=== PATIENT | female | born 1930 | race Caucasian/White ===

== ENCOUNTER 2016-05-28 16:57 | Inpatient (IN) | payer MEDICARE, OTHER ==
[2016-05-28] MEDS ORDERED: IPRATROPIUM/ALBUTEROL 0.5-2.5 MG/3 ML AMPUL NEB ONE ×2 (17:04→19:04)
--- NOTE | 2016-05-28 17:09 | ER Document Report ---
ED Respiratory Problem - General Mode of Arrival: Medic Information source: Relative, Emergency Med Personnel TRAVEL OUTSIDE OF THE [place] IN LAST 30 DAYS: No - HPI Patient complains to provider of: Other - Respiratory Distress Onset: Just prior to arrival Context: Other - see above <JOHN SHAW - Last Filed: 05/28/16 19:15> <BERNARDINOBARRETT GUERO - Last Filed: 06/09/16 23:03> - General Stated Complaint: RESPIRATORY DISTRESS Notes: 86 year old female with history of bronchiectasis, chronic bronchitis, and pneumonia (last episode in February 2016) presents to the ED from [facility] via EMS in respiratory distress. [facility] [employer] states that the patient was at 80% on room air. Patient was given breathing treatment and oxygen which raised her oxygen saturation to 100%. Patient's daughter states that she saw the patient earlier today for lunch and had a normal conversation with her. Daughter states that the patient seemed unwell and tired while having lunch with her. Daughter explains that the patient fell on Thanksgiving and injured her back and is having difficulty coughing secondary to this. Daughter denies the patient choking on her food today. (JOHN SHAW) - Related Data Allergies/Adverse Reactions: aspirin Allergy (Verified 03/03/16 12:15) ibuprofen [From Motrin] Allergy (Verified 03/03/16 12:15) naproxen Allergy (Verified 03/03/16 12:15) Home Medications: Current Home Medications Atorvastatin Calcium [Lipitor 10 mg Tablet] 10 mg PO QHS 05/28/16 [History] Past Medical History - General Information source: Relative, Emergency Med Personnel - Social History Smoking Status: Unknown if Ever Smoked Family History: Hypertension - Past Medical History Cardiac Medical History: Reports: Hx Hypercholesterolemia, Hx Hypertension Pulmonary Medical History: Reports: Hx Bronchitis - bronchiectasis, Hx COPD, Hx Pneumonia Musculoskeltal Medical History: Reports Hx Arthritis - rheumatoid Psychiatric Medical History: Reports: Hx Depression Past Surgical History: Reports: Hx Cholecystectomy, Hx Hysterectomy, Hx Orthopedic Surgery - bilat knee replacement, rotator cuff sx, lamenectomy - Immunizations Immunizations up to date: Yes Hx Diphtheria, Pertussis, Tetanus Vaccination: Yes Hx Pneumococcal Vaccination: 05/30/10 <JOHN SHAW - Last Filed: 05/28/16 19:15> Review of Systems - Review of Systems -: Yes ROS unobtainable due to patient's medical condition <JOHN SHAW - Last Filed: 05/28/16 19:15> Physical Exam - Vital signs Interpretation: Hypoxic, Tachypneic - General General appearance: Alert, Other - minimally responsive In distress: Severe - HEENT Head: Normocephalic, Atraumatic Eyes: Normal Extraocular movements intact: Yes Pupils: PERRL - Respiratory Respiratory status: Respiratory distress, Tachypnea, Other Breath sounds: Decreased air movement - bilaterally, Rhonchi - bilaterally, Other - decreased breath sounds bilaterally - Cardiovascular Rhythm: Regular Heart sounds: Normal auscultation - Abdominal Inspection: Normal - Back Back: Normal - Extremities General upper extremity: Normal inspection, Normal ROM General lower extremity: Normal inspection, Normal ROM - Neurological Neuro grossly intact: Yes Cognition: Normal Orientation: AAOx4 [place] Coma Scale Eye Opening: Spontaneous [place] Coma Scale Verbal: Oriented Rigoberto Coma Scale Motor: Obeys Commands [place] Coma Scale Total: 15 Speech: Normal - Psychological Associated symptoms: Normal affect, Normal mood - Skin Skin Temperature: Warm Skin Moisture: Dry Skin Color: Pale <JOHN SHAW - Last Filed: 05/28/16 19:15> - Neurological Cognition: No: Normal Orientation: No: AAOx4 Rigoberto Coma Scale Eye Opening: To Voice [place] Coma Scale Verbal: Inappropriate Rigoberto Coma Scale Motor: Localizes to Pain [place] Coma Scale Total: 11 <BARRETT LEBRON - Last Filed: 06/09/16 23:03> - Vital signs Vitals: Resp Pulse Ox 23 H 100 05/28/16 17:02 05/28/16 17:02 (BARRETT LEBRON) Course - Laboratory Result Diagrams: 05/28/16 17:10 05/28/16 17:10 <JOHN SHAW - Last Filed: 05/28/16 19:15> - Laboratory Result Diagrams: 06/02/16 08:18 06/03/16 09:03 <BARRETT LEBRON - Last Filed: 06/09/16 23:03> - Re-evaluation Re-evalutation: 05/28/16 Patient is an 86-year-old female who presents with respiratory distress. Patient is DNR/DNI. Patient's chest x-ray, exam consistent with pneumonia. Patient recently MRSA pneumonia. Patient has been discussed with family who reiterates that she is DNR/DNI. Patient has been placed on BiPAP and started on antibiotics. Blood cultures have been sent. Patient is retired referred to the hospital service for admission. Patient is in stable condition at the time of admission. (BARRETT LEBRON) - Vital Signs Vital signs: Temp Pulse Resp BP Pulse Ox 97.7 F 81 18 156/80 H 100 06/03/16 11:23 06/03/16 11:23 06/03/16 11:23 06/03/16 11:23 06/03/16 11:23 (BARRETT LEBRON) - Laboratory Laboratory results interpreted by me: 05/28/16 05/28/16 05/28/16 17:10 17:10 17:10 WBC 12.0 H RBC 3.60 L Hgb 9.0 L Hct 28.8 L MCH 24.8 L MCHC 31.1 L RDW 19.6 H Absolute Neutrophils 9.3 H PT 15.5 H VBG pH VBG pCO2 Sodium 136.4 L BUN 27 H Glucose 164 H Albumin 3.2 L 05/28/16 17:10 WBC RBC Hgb Hct MCH MCHC RDW Absolute Neutrophils PT VBG pH 7.29 L VBG pCO2 66.4 H* Sodium BUN Glucose Albumin (BARRETT LEBRON) Discharge <SHAW,JOHN - Last Filed: 05/28/16 19:15> - Discharge Admitting Provider: [facility] Unit Admitted: IMCU <BARRETT LEBRON - Last Filed: 06/09/16 23:03> - Discharge Clinical Impression: Respiratory distress, COPD exacerbation Altered mental status Qualifiers: Altered mental status type: unspecified Qualified Code(s): R41.82 - Altered mental status, unspecified Pneumonia Qualifiers: Pneumonia type: due to unspecified organism Laterality: bilateral Lung location : lower lobe of lung Qualified Code(s): J18.9 - Pneumonia, unspecified organism Condition: Stable Disposition: ADMITTED INPATIENT Scribe Attestation: 06/09/16 23:03 I personally performed the services described in the documentation, reviewed and edited the documentation which was dictated to the scribe in my presence, and it accurately records my words and actions. (BARRETT LEBRON) Scribe Documentation - Scribe acting as scribe for :: Bernardino Written by Estee:: Estee Mendoza, 05/28/2016 18:21 <JOHN SHAW - Last Filed: 05/28/16 19:15>
[2016-05-28 17:30] LABS: ABSOLUTE BASOPHILS # (AUTO) 0.1 10^3/uL (0.0-0.2); ABSOLUTE LYMPHOCYTES (AUTO) 1.7 10^3/uL (0.5-4.7); ABSOLUTE MONOCYTES (AUTO) 0.9 10^3/uL (0.1-1.4); ABSOLUTE NEUT (AUTO) 9.3 10^3/uL (1.7-8.2); BASOPHILS % (AUTO) 0.5 % (0-2); HEMATOCRIT 28.8 % (36.0-47.0); HGB HCT DIFFERENCE -1.8; LYMPHOCYTES % (AUTO) 14.2 % (13-45); MEAN CORPUSCULAR HEMOGLOBIN 24.8 pg (27.0-33.4); MEAN CORPUSCULAR HGB CONC 31.1 g/dL (32.0-36.0); MEAN CORPUSCULAR VOLUME 80 fl (80-97); MONOCYTES % (AUTO) 7.5 % (3-13); RED CELL DISTRIBUTION WIDTH 19.6 % (11.5-14.0); SEGMENTED NEUTROPHILS % (AUTO) 77.8 % (42-78); VENOUS BLOOD PH 7.29 (7.30-7.42)
[2016-05-28 17:33] LABS: VENOUS BLOOD PCO2 66.4 mmHg (35-63)
[2016-05-28 17:45] LABS: PROTHROMBIN TIME 15.5 SEC (11.4-15.4)
[2016-05-28] MEDS ORDERED: CEFEPIME 1 GM/D5W RTU 50 ML IV ONE (17:46)
[2016-05-28] MEDS ORDERED: LEVOFLOXACIN 750 MG/D5W RTU 150 ML IV ONE (17:46)
[2016-05-28] MEDS ORDERED: NORMAL SALINE 1000 ML 500 ML IV ONE (17:46)
[2016-05-28] MEDS ORDERED: VANCOMYCIN HCL INJ 1000 MG VIAL IV ONE (17:46)
[2016-05-28 17:51] LABS: ALANINE AMINOTRANSFERASE 29 U/L (9-52); ALBUMIN 3.2 g/dL (3.5-5.0); ALKALINE PHOSPHATASE 95 U/L (38-126); ANION GAP 10 (5-19); ASPARTATE AMINO TRANSFERASE 17 U/L (14-36); BILIRUBIN,TOTAL 0.7 mg/dL (0.2-1.3); BLOOD UREA NITROGEN 27 mg/dL (7-20); CALCIUM 9.8 mg/dL (8.4-10.2); CARBON DIOXIDE 28 mmol/L (22-30); CHLORIDE 98 mmol/L (98-107); CREATININE RESULT 0.88 mg/dL (0.52-1.25); GLUCOSE 164 mg/dL (75-110); POTASSIUM 4.8 mmol/L (3.6-5.0); SODIUM 136.4 mmol/L (137-145); TOTAL PROTEIN 6.4 g/dL (6.3-8.2)
--- NOTE | 2016-05-28 18:58 | PDOC H&P ---
History of Present Illness Patient complains of: SOB History of Present Illness: GRACIELA WHITFIELD is a 86 year old female with history of bronchiectasis, chronic bronchitis, and pneumonia (last episode in February 2016) presents to the ED from [facility] via EMS in respiratory distress. [facility] states that the patient was at 80% on room air. Patient was given breathing treatment and oxygen which raised her oxygen saturation to 100%. Patient's daughter states that she saw the patient earlier today for lunch and had a normal conversation with her. Daughter states that the patient seemed unwell and tired while having lunch with her. Daughter explains that the patient fell on Thanksgiving and injured her back and is having difficulty coughing secondary to this. Daughter denies the patient choking on her food today. Past Medical History Cardiac Medical History: Reports: Hyperlipidema, Hypertension Denies: Myocardial Infarction Pulmonary Medical History: Reports: Bronchitis - bronchiectasis, Chronic Obstructive Pulmonary Disease (COPD), Pneumonia Denies: Asthma Neurological Medical History: Denies: Seizures GI Medical History: Denies: Hepatitis, Hiatal Hernia Musculoskeltal Medical History: Reports: Arthritis - rheumatoid Psychiatric Medical History: Reports: Depression Hematology: Denies: Anemia, Sickle Cell Disease Past Surgical History Past Surgical History: Reports: Cholecystectomy, Hysterectomy, Orthopedic Surgery - bilat knee replacement, rotator cuff sx, lamenectomy Denies: Amputation, Mastectomy, Pacemaker Social History Information Source: Transfer Record Smoking Status: Unknown if Ever Smoked Frequency of Alcohol Use: None Hx Recreational Drug Use: No Drugs: None Hx Prescription Drug Abuse: No Family History Family History: Hypertension Parental Family History Reviewed: Yes - hypertension Children Family History Reviewed: Yes Sibling(s) Family History Reviewed.: Yes Medication/Allergy Home Medications: Calcium Carbonate/Vitamin D3 [Super Calcium 600-Vit D3 400] 1 each PO DAILY Cetirizine HCl [Zyrtec] 10 mg PO DAILY 01/28/16 Cholecalciferol (Vitamin D3) [Vitamin D3] 2,000 unit PO DAILY 01/28/16 Cyanocobalamin (Vitamin B-12) [Vitamin B-12] 1,000 mcg PO DAILY 01/28/16 Docusate Sodium [Colace 100 mg Capsule] 100 mg PO BID 01/28/16 Duloxetine HCl [Cymbalta] 60 mg PO DAILY 01/28/16 Furosemide [Lasix 20 mg Tablet] 20 mg PO DAILY 01/28/16 Ipratropium/Albuterol Sulfate [Duoneb 3 ml Ampul] 3 ml NEB TID 01/28/16 Lorazepam [Ativan 0.5 mg Tablet] 0.5 mg PO Q8H PRN 01/28/16 Mirtazapine [Remeron] 30 mg PO QHS 01/28/16 Omeprazole 20 mg PO DAILY 01/28/16 Potassium Chloride [K-Tab ER] 10 meq PO DAILY 01/28/16 Prednisone 5 mg PO DAILY 01/28/16 Risperidone [Risperdal 0.25 mg Tablet] 0.25 mg PO QAM 01/28/16 Apixaban [Eliquis 5 mg Tablet] 2.5 mg PO BID #60 tablet 03/10/16 Linezolid [Zyvox 600 mg Tablet] 600 mg PO Q12 #30 tablet 03/10/16 Risperidone [Risperdal 1 mg Tablet] 0.5 mg PO QHS #30 tablet 03/10/16 Simvastatin [Zocor 10 mg Tablet] 10 mg PO QHS #30 tablet 03/10/16 Allergies/Adverse Reactions: aspirin Allergy (Verified 03/03/16 12:15) ibuprofen [From Motrin] Allergy (Verified 03/03/16 12:15) naproxen Allergy (Verified 03/03/16 12:15) Review of Systems ROS unobtainable: Due to mental status - on bipap support, Other Physical Exam Vital Signs: Temp Pulse Resp BP Pulse Ox 21 H 140/119 H 100 05/28/16 18:04 05/28/16 18:04 05/28/16 18:04 Intake & Output 05/27/16 05/28/16 05/29/16 00:59 00:59 00:59 Weight 47.7 kg General appearance: PRESENT: mild distress, thin Head exam: PRESENT: atraumatic, normocephalic Eye exam: PRESENT: conjunctiva pink, EOMI, PERRLA. ABSENT: scleral icterus Neck exam: ABSENT: carotid bruit, JVD, lymphadenopathy, thyromegaly Respiratory exam: PRESENT: accessory muscle use, retraction, rhonchi, wheezes Cardiovascular exam: PRESENT: RRR. ABSENT: diastolic murmur, rubs, systolic murmur Vascular exam: PRESENT: normal capillary refill GI/Abdominal exam: PRESENT: normal bowel sounds, soft. ABSENT: distended, guarding, mass, organolmegaly, rebound, tenderness Rectal exam: PRESENT: deferred Extremities exam: PRESENT: full ROM. ABSENT: calf tenderness, clubbing, pedal edema Results Laboratory Results: 05/28/16 17:10 05/28/16 17:10 05/28/16 05/28/16 05/28/16 17:10 17:10 17:10 WBC 12.0 H RBC 3.60 L Hgb 9.0 L Hct 28.8 L MCV 80 MCH 24.8 L MCHC 31.1 L RDW 19.6 H Plt Count 414 Seg Neutrophils % 77.8 Lymphocytes % 14.2 Monocytes % 7.5 Eosinophils % 0.0 Basophils % 0.5 Absolute Neutrophils 9.3 H Absolute Lymphocytes 1.7 Absolute Monocytes 0.9 Absolute Eosinophils 0.0 Absolute Basophils 0.1 VBG pH VBG pCO2 VBG HCO3 VBG Base Excess Sodium 136.4 L Potassium 4.8 Chloride 98 Carbon Dioxide 28 Anion Gap 10 BUN 27 H Creatinine 0.88 Est GFR ( Amer) > 60 Est GFR (Non-Af Amer) > 60 Glucose 164 H Lactic Acid 1.8 Calcium 9.8 Total Bilirubin 0.7 AST 17 ALT 29 Alkaline Phosphatase 95 Total Protein 6.4 Albumin 3.2 L 05/28/16 17:10 WBC RBC Hgb Hct MCV MCH MCHC RDW Plt Count Seg Neutrophils % Lymphocytes % Monocytes % Eosinophils % Basophils % Absolute Neutrophils Absolute Lymphocytes Absolute Monocytes Absolute Eosinophils Absolute Basophils VBG pH 7.29 L VBG pCO2 66.4 H* VBG HCO3 31.0 VBG Base Excess 2.0 Sodium Potassium Chloride Carbon Dioxide Anion Gap BUN Creatinine Est GFR ( Amer) Est GFR (Non-Af Amer) Glucose Lactic Acid Calcium Total Bilirubin AST ALT Alkaline Phosphatase Total Protein Albumin 05/28/16 17:10 Creatine Kinase 50 Impressions: Chest X-Ray 05/28/16 17:06 IMPRESSION: LOW LUNG VOLUMES. Bilateral Basilar subsegmental atelectasis.. Assessment & Plan - Diagnosis (1) Dementia Qualifiers: Dementia type: unspecified type Dementia behavioral disturbance: with behavioral disturbance Qualified Code(s): F03.91 - Unspecified dementia with behavioral disturbance; F10.97 - Alcohol use, unspecified with alcohol- induced persisting dementia (2) Acute encephalopathy Is this a current diagnosis for this admission?: YesPlan: secondary to hypercarbia continue bipap support (3) COPD exacerbation Is this a current diagnosis for this admission?: YesPlan: steroids nebs antibiotics (4) DNR (do not resuscitate) Is this a current diagnosis for this admission?: Yes (5) History of pulmonary embolism Is this a current diagnosis for this admission?: YesPlan: was anticoagulated on eliquis will switch to lovenox SC isf NPO (6) Pneumonia Qualifiers: Pneumonia type: due to unspecified organism Laterality: left Lung location: lower lobe of lung Qualified Code(s): J18.9 - Pneumonia, unspecified organism Is this a current diagnosis for this admission?: YesPlan: treat as hospital acquired pneumonia - Time Time Spent: 50 to 70 Minutes - Inpatient Certification Based on my medical assessment, after consideration of the patient's comorbidities, presenting symptoms, or acuity I expect that the services needed warrant INPATIENT care.: Yes I certify that my determination is in accordance with my understanding of Medicare's requirements for reasonable and necessary INPATIENT services [42 CFR 412.3e].: Yes Medical Necessity: Need For IV Fluids, Need For Continuous Telemetry Monitoring , Need for IV Antibiotics
[2016-05-28 19:00] LABS: CREATINE KINASE MB 1.34 ng/mL (<4.55); TROPONIN I 0.022 ng/mL
[2016-05-28] MEDS ORDERED: VANCOMYCIN HCL 0 MG in DEXTROSE 5%-WATER 250 ML IV NR (19:00)
[2016-05-28] MEDS ORDERED: METHYLPREDNISOLONE INJ 125 MG/2 ML SDV IV ONE (19:30)
[2016-05-28 19:42] LABS: APPEARANCE,URINE CLEAR; BILIRUBIN,URINE NEGATIVE (NEGATIVE); GLUCOSE, URINE NEGATIVE (NEGATIVE); KETONES,URINE NEGATIVE (NEGATIVE); LEUKOCYTE ESTERASE,URINE NEGATIVE (NEGATIVE); NITRITE,URINE NEGATIVE (NEGATIVE); PROTEIN,URINE NEGATIVE (NEGATIVE); URINE SPECIFIC GRAVITY 1.012; UROBILINOGEN,URINE NEGATIVE mg/dL (<2.0)
[2016-05-28] MEDS ORDERED: ENOXAPARIN SODIUM INJ 30 MG/0.3 ML DISP.SYRIN SUBCUT ONE (20:30)
[2016-05-28] MEDS: NORMAL SALINE 1000 ML 1,000 ML IV PRN (20:48)
[2016-05-28] MEDS ORDERED: VANCOMYCIN HCL 500 MG in DEXTROSE 5%-WATER 100 ML IV ONE (21:00)
--- NOTE | 2016-05-28 21:05 | EKG REPORT ---
SEVERITY:- ABNORMAL ECG - SINUS TACHYCARDIA OLD ANTRIOR [place] : Confirmed by: Christ Mendoza MD 28-May-2016 21:04:27
[2016-05-28] MEDS: METHYLPREDNISOLONE INJ 125 MG/2 ML SDV IV SCH ×2 (21:58→22:10)
[2016-05-28] MEDS: FAMOTIDINE INJ/PF 20 MG/2 ML SDV IV SCH (22:10)
[2016-05-29] MEDS: CEFEPIME 1 GM/D5W RTU 1 GM/50 ML RTUPB IV SCH ×2 (05:09→17:08)
[2016-05-29] MEDS: METHYLPREDNISOLONE INJ 125 MG/2 ML SDV IV SCH ×3 (05:09→21:26)
[2016-05-29 06:15] LABS: ABSOLUTE LYMPHOCYTES (AUTO) 0.4 10^3/uL (0.5-4.7); ABSOLUTE MONOCYTES (AUTO) 0.2 10^3/uL (0.1-1.4); ABSOLUTE NEUT (AUTO) 6.9 10^3/uL (1.7-8.2); BASOPHILS % (AUTO) 0.1 % (0-2); HEMATOCRIT 25.5 % (36.0-47.0); HEMOGLOBIN 8.3 g/dL (12.0-15.5); HGB HCT DIFFERENCE -0.6; LYMPHOCYTES % (AUTO) 5.8 % (13-45); MEAN CORPUSCULAR HEMOGLOBIN 25.8 pg (27.0-33.4); MEAN CORPUSCULAR HGB CONC 32.3 g/dL (32.0-36.0); MEAN CORPUSCULAR VOLUME 80 fl (80-97); MONOCYTES % (AUTO) 2.9 % (3-13); RED CELL DISTRIBUTION WIDTH 19.6 % (11.5-14.0); SEGMENTED NEUTROPHILS % (AUTO) 91.2 % (42-78); WHITE BLOOD COUNT 7.6 10^3/uL (4.0-10.5)
[2016-05-29 06:18] LABS: ARTERIAL BLOOD BASE EXCESS -2.4 mmol/L; ARTERIAL BLOOD O2 SATURATION 98.6 % (94-98)
[2016-05-29 06:35] LABS: ALANINE AMINOTRANSFERASE 24 U/L (9-52); ALBUMIN 2.7 g/dL (3.5-5.0); ALKALINE PHOSPHATASE 93 U/L (38-126); ANION GAP 11 (5-19); ASPARTATE AMINO TRANSFERASE 11 U/L (14-36); BILIRUBIN,TOTAL 0.5 mg/dL (0.2-1.3); BLOOD UREA NITROGEN 19 mg/dL (7-20); CALCIUM 8.6 mg/dL (8.4-10.2); CARBON DIOXIDE 23 mmol/L (22-30); CHLORIDE 106 mmol/L (98-107); CHOLESTEROL 114.91 mg/dL (0-200); CREATININE RESULT 0.68 mg/dL (0.52-1.25); Direct HDL 32 mg/dL (>40); GLUCOSE 176 mg/dL (75-110); MAGNESIUM 1.5 mg/dL (1.6-2.3); POTASSIUM 4.6 mmol/L (3.6-5.0); SODIUM 139.5 mmol/L (137-145); TOTAL PROTEIN 5.4 g/dL (6.3-8.2); TRIGLYCERIDES 90 mg/dL (<150)
--- NOTE | 2016-05-29 06:37 | EKG REPORT ---
SEVERITY:- ABNORMAL ECG - SINUS RHYTHM W PACS FIRST DEGREE AV BLOCK PROBABLE ANTEROSEPTAL INFARCT, AGE INDETERM : Confirmed by: Christ Mendoza MD 29-May-2016 06:36:48
[2016-05-29 06:45] LABS: TROPONIN I 0.015 ng/mL
[2016-05-29 06:46] LABS: DIRECT LDL 54 mg/dL (<100)
[2016-05-29] MEDS: ENOXAPARIN SODIUM INJ 30 MG/0.3 ML DISP.SYRIN SUBCUT SCH (07:04)
[2016-05-29] MEDS ORDERED: ENOXAPARIN SODIUM INJ 40 MG/0.4 ML DISP.SYRIN SUBCUT SCH (08:00)
[2016-05-29] MEDS: FAMOTIDINE INJ/PF 20 MG/2 ML SDV IV SCH ×2 (08:55→21:26)
[2016-05-29] MEDS ORDERED: LEVOFLOXACIN 750 MG/D5W RTU 150 ML IV SCH (10:00)
--- NOTE | 2016-05-29 10:25 | PDOC PROGRESS REPORT ---
Subjective Progress Note for:: 05/29/16 Subjective:: Patient is seen on morning rounds. She is presently asleep on BIPAP. She does not respond to verbal stimuli. Her ABG is improved on BIPAP, PCO2 is high normal but mentation has not improved with it. Her daughter is at her bedside. She states she saw her mother in the senior living in the morning. She was awake and conversive but slow. She then quickly deteriorated. She does not wear oxygen, but does have problems with her breathing. She states she was hospitalized in February for pneumonia. She denies any other recent illnesses. Unable to do review of systems with patient due to her mentation. Physical Exam Vital Signs: Temp Pulse Resp BP Pulse Ox 97.8 F 95 16 140/83 H 96 05/29/16 07:50 05/29/16 08:00 05/29/16 08:00 05/29/16 07:50 05/29/16 08:00 Intake & Output 05/28/16 05/29/16 05/30/16 06:59 06:59 06:59 Intake Total 900 Output Total 550 Balance 350 Weight 43.7 kg General appearance: PRESENT: no acute distress, thin, well-developed, well- nourished Head exam: PRESENT: atraumatic, normocephalic Eye exam: PRESENT: conjunctiva pink, EOMI, PERRLA. ABSENT: scleral icterus Ear exam: PRESENT: normal external ear exam Mouth exam: PRESENT: moist, tongue midline Neck exam: ABSENT: carotid bruit, JVD, lymphadenopathy, thyromegaly Respiratory exam: PRESENT: clear to auscultation magdalena. ABSENT: rales, rhonchi, wheezes Cardiovascular exam: PRESENT: RRR. ABSENT: diastolic murmur, rubs, systolic murmur Pulses: PRESENT: normal dorsalis pedis pul Vascular exam: PRESENT: normal capillary refill GI/Abdominal exam: PRESENT: normal bowel sounds, soft. ABSENT: distended, guarding, mass, organolmegaly, rebound, tenderness Rectal exam: PRESENT: deferred Extremities exam: PRESENT: full ROM. ABSENT: calf tenderness, clubbing, pedal edema Neurological exam: PRESENT: altered, CN II-XII grossly intact Psychiatric exam: PRESENT: flat affect Skin exam: PRESENT: dry, intact, warm. ABSENT: cyanosis, rash Results Laboratory Results: 05/29/16 05:51 05/29/16 05:51 05/28/16 05/29/16 05/29/16 18:54 05:37 05:51 WBC 7.6 RBC 3.20 L Hgb 8.3 L Hct 25.5 L MCV 80 MCH 25.8 L MCHC 32.3 RDW 19.6 H Plt Count 339 Seg Neutrophils % 91.2 H Lymphocytes % 5.8 L Monocytes % 2.9 L Eosinophils % 0.0 Basophils % 0.1 Absolute Neutrophils 6.9 Absolute Lymphocytes 0.4 L Absolute Monocytes 0.2 Absolute Eosinophils 0.0 Absolute Basophils 0.0 Carbonic Acid 1.26 HCO3/H2CO3 Ratio 18:1 ABG pH 7.36 ABG pCO2 42.0 ABG pO2 138.0 H ABG HCO3 23.0 ABG O2 Saturation 98.6 H ABG Base Excess -2.4 FiO2 40% Sodium Potassium Chloride Carbon Dioxide Anion Gap BUN Creatinine Est GFR ( Amer) Est GFR (Non-Af Amer) Glucose Calcium Magnesium Total Bilirubin AST ALT Alkaline Phosphatase Total Protein Albumin Triglycerides Cholesterol LDL Cholesterol Direct VLDL Cholesterol HDL Cholesterol TSH Urine Color YELLOW Urine Appearance CLEAR Urine pH 5.0 Ur Specific [place] 1.012 Urine Protein NEGATIVE Urine Glucose (UA) NEGATIVE Urine Ketones NEGATIVE Urine Blood NEGATIVE Urine Nitrite NEGATIVE Ur Leukocyte Esterase NEGATIVE Urine WBC (Auto) 0 05/29/16 05/29/16 05:51 05:51 WBC RBC Hgb Hct MCV MCH MCHC RDW Plt Count Seg Neutrophils % Lymphocytes % Monocytes % Eosinophils % Basophils % Absolute Neutrophils Absolute Lymphocytes Absolute Monocytes Absolute Eosinophils Absolute Basophils Carbonic Acid HCO3/H2CO3 Ratio ABG pH ABG pCO2 ABG pO2 ABG HCO3 ABG O2 Saturation ABG Base Excess FiO2 Sodium 139.5 Potassium 4.6 Chloride 106 Carbon Dioxide 23 Anion Gap 11 BUN 19 Creatinine 0.68 Est GFR ( Amer) > 60 Est GFR (Non-Af Amer) > 60 Glucose 176 H Calcium 8.6 Magnesium 1.5 L Total Bilirubin 0.5 AST 11 L ALT 24 Alkaline Phosphatase 93 Total Protein 5.4 L Albumin 2.7 L Triglycerides 90 Cholesterol 114.91 LDL Cholesterol Direct 54 VLDL Cholesterol 18.0 HDL Cholesterol 32 L TSH 1.14 Urine Color Urine Appearance Urine pH Ur Specific [place] Urine Protein Urine Glucose (UA) Urine Ketones Urine Blood Urine Nitrite Ur Leukocyte Esterase Urine WBC (Auto) 05/28/16 05/29/16 23:15 05:51 Troponin I 0.012 0.015 NT-Pro-B Natriuret Pep 738 H Impressions: Chest X-Ray 05/28/16 17:06 IMPRESSION: LOW LUNG VOLUMES. Bilateral Basilar subsegmental atelectasis.. Assessment & Plan - Diagnosis (1) Acute encephalopathy Is this a current diagnosis for this admission?: YesPlan: Most likely due to hypercapneic respiratory failure. However blood gas has normalized on BIPAP, but mentation has not improved. Will obtain CT of the head to rule out CVA (2) Pneumonia Qualifiers: Pneumonia type: due to unspecified organism Laterality: bilateral Lung location: lower lobe of lung Qualified Code(s): J18.9 - Pneumonia, unspecified organism Is this a current diagnosis for this admission?: YesPlan: Patient is on broad spectrum antibiotics, leucocytosis improved. Cultures pending (3) COPD exacerbation Is this a current diagnosis for this admission?: YesPlan: Continue nebulizer treatments (4) Dementia Qualifiers: Dementia type: unspecified type Dementia behavioral disturbance: with behavioral disturbance Qualified Code(s): F03.91 - Unspecified dementia with behavioral disturbance; F10.97 - Alcohol use, unspecified with alcohol- induced persisting dementia Is this a current diagnosis for this admission?: YesPlan: Patient is presently obtunded. Daughter states she converses at her baseline (5) DNR (do not resuscitate) Is this a current diagnosis for this admission?: YesPlan: Discussed with daughter who agrees (6) GERD (gastroesophageal reflux disease) Qualifiers: Esophagitis presence: esophagitis presence not specified Qualified Code(s): K21.9 - Gastro-esophageal reflux disease without esophagitis Is this a current diagnosis for this admission?: YesPlan: Continue PPI therapy - Time Time Spent with patient: 15-24 minutes Critical Time spent with patient: Less than 15 minutes Medications reviewed and adjusted accordingly: Yes Anticipated discharge: SNF
[2016-05-29] MEDS: MAGNESIUM SULFATE/D5W 100 ML IV SCH ×2 (12:00→14:00)
[2016-05-29] MEDS ORDERED: TRAMADOL HCL 50 MG TABLET PO PRN (13:58)
[2016-05-29] MEDS: NORMAL SALINE 1000 ML 1,000 ML IV PRN (17:09)
[2016-05-29] MEDS: LORAZEPAM 0.5 MG TABLET PO PRN (17:12)
[2016-05-29] MEDS: APIXABAN 2.5 MG TABLET PO SCH (17:12)
[2016-05-29] MEDS: DOCUSATE SODIUM 100 MG CAPSULE PO SCH (17:13)
[2016-05-29] MEDS ORDERED: APIXABAN 5 MG TABLET PO SCH (18:00)
[2016-05-29] MEDS: VANCOMYCIN HCL 500 MG in DEXTROSE 5%-WATER 100 ML IV SCH (21:25)
[2016-05-29] MEDS: ATORVASTATIN CALCIUM 10 MG TABLET PO SCH (21:26)
[2016-05-29] MEDS: MIRTAZAPINE 15 MG TABLET PO SCH (21:27)
[2016-05-29] MEDS: RISPERIDONE 0.25 MG TABLET PO SCH (21:27)
[2016-05-29] MEDS: GUAIFENESIN 600 MG TABLET.SA PO SCH (21:27)
[2016-05-29] MEDS ORDERED: RISPERIDONE 1 MG TABLET PO SCH (22:00)
[2016-05-30] MEDS: CEFEPIME 1 GM/D5W RTU 1 GM/50 ML RTUPB IV SCH ×2 (05:35→18:06)
[2016-05-30] MEDS: METHYLPREDNISOLONE INJ 125 MG/2 ML SDV IV SCH ×3 (05:36→21:46)
[2016-05-30 06:04] LABS: ANION GAP 7 (5-19); BLOOD UREA NITROGEN 21 mg/dL (7-20); CALCIUM 8.2 mg/dL (8.4-10.2); CARBON DIOXIDE 25 mmol/L (22-30); CHLORIDE 110 mmol/L (98-107); CREATININE RESULT 0.64 mg/dL (0.52-1.25); GLUCOSE 166 mg/dL (75-110)
[2016-05-30 07:21] LABS: ABSOLUTE LYMPHOCYTES (AUTO) 0.7 10^3/uL (0.5-4.7); ABSOLUTE MONOCYTES (AUTO) 0.5 10^3/uL (0.1-1.4); BASOPHILS % (AUTO) 0.1 % (0-2); HEMATOCRIT 28.6 % (36.0-47.0); HEMOGLOBIN 8.8 g/dL (12.0-15.5); HGB HCT DIFFERENCE -2.2; LYMPHOCYTES % (AUTO) 8.4 % (13-45); MEAN CORPUSCULAR HEMOGLOBIN 24.6 pg (27.0-33.4); MEAN CORPUSCULAR HGB CONC 30.9 g/dL (32.0-36.0); MEAN CORPUSCULAR VOLUME 80 fl (80-97); MONOCYTES % (AUTO) 5.7 % (3-13); RED BLOOD COUNT 3.59 10^6/uL (3.72-5.28); RED CELL DISTRIBUTION WIDTH 19.5 % (11.5-14.0); SEGMENTED NEUTROPHILS % (AUTO) 85.8 % (42-78); WHITE BLOOD COUNT 8.1 10^3/uL (4.0-10.5)
[2016-05-30] MEDS: LORAZEPAM 0.5 MG TABLET PO PRN (07:25)
[2016-05-30] MEDS: IPRATROPIUM/ALBUTEROL 0.5-2.5 MG/3 ML AMPUL NEB PRN ×2 (08:15→16:14)
[2016-05-30] MEDS ORDERED: FUROSEMIDE INJ/PF 40 MG/4 ML SDV ONE (08:30)
[2016-05-30] MEDS ORDERED: FUROSEMIDE INJ/PF 20 MG/2 ML SDV IV ONE (08:30)
[2016-05-30] MEDS ORDERED: FUROSEMIDE INJ/PF 40 MG/4 ML SDV IV ONE (09:30)
[2016-05-30] MEDS ORDERED: (PENDING PHARMACY ID) (Cetirizine Hcl [Zyrtec] 10 MG) PO SCH (10:00)
[2016-05-30] MEDS ORDERED: LORAZEPAM INJ 2 MG/1 ML VIAL IV PRN (10:37)
[2016-05-30] MEDS ORDERED: LORAZEPAM INJ 2 MG/1 ML VIAL IV ONE (10:37)
[2016-05-30] MEDS ORDERED: LORAZEPAM INJ 2 MG/1 ML VIAL ONE (10:42)
[2016-05-30] MEDS: DULOXETINE HCL 30 MG CAPSULE.DR PO SCH (10:52)
[2016-05-30] MEDS: DOCUSATE SODIUM 100 MG CAPSULE PO SCH ×2 (10:52→18:07)
[2016-05-30] MEDS: PREDNISONE 5 MG TABLET PO SCH (10:52)
[2016-05-30] MEDS: APIXABAN 2.5 MG TABLET PO SCH ×2 (10:52→18:07)
[2016-05-30] MEDS: RISPERIDONE 0.25 MG TABLET PO SCH ×2 (10:53→22:02)
[2016-05-30] MEDS: GUAIFENESIN 600 MG TABLET.SA PO SCH ×2 (10:53→22:02)
[2016-05-30] MEDS: FUROSEMIDE 20 MG TABLET PO SCH (10:53)
[2016-05-30] MEDS: CETIRIZINE 10 MG TABLET PO SCH (10:54)
[2016-05-30] MEDS: POTASSIUM CHLORIDE 10 MEQ TABLET.SA PO SCH (10:54)
[2016-05-30] MEDS: FAMOTIDINE INJ/PF 20 MG/2 ML SDV IV SCH ×2 (10:55→21:46)
[2016-05-30] MEDS: ENOXAPARIN SODIUM INJ 30 MG/0.3 ML DISP.SYRIN SUBCUT SCH (10:56)
--- NOTE | 2016-05-30 11:17 | PDOC PROGRESS REPORT ---
Subjective Progress Note for:: 05/30/16 Subjective:: Patient is seen on morning rounds. She awake and alert but confused which is her baseline. She has an extremely wet, congested cough this morning. She has not required bipap overnight. No family is presently available Unable to do review of systems with patient due to her mentation. Physical Exam Vital Signs: Temp Pulse Resp BP Pulse Ox 97.3 F 107 H 22 H 163/105 H 98 05/30/16 07:45 05/30/16 08:15 05/30/16 08:15 05/30/16 07:45 05/30/16 08:15 Intake & Output 05/29/16 05/30/16 05/31/16 06:59 06:59 06:59 Intake Total 900 1923 Output Total 550 935 Balance 350 988 Weight 43.7 kg 50.4 kg General appearance: PRESENT: no acute distress, well-developed, well-nourished Head exam: PRESENT: atraumatic, normocephalic Eye exam: PRESENT: conjunctiva pink, EOMI, PERRLA. ABSENT: scleral icterus Ear exam: PRESENT: normal external ear exam Mouth exam: PRESENT: moist, tongue midline Neck exam: ABSENT: carotid bruit, JVD, lymphadenopathy, thyromegaly Respiratory exam: PRESENT: rhonchi, symmetrical, wheezes Cardiovascular exam: PRESENT: irregular rhythm. ABSENT: diastolic murmur, rubs , systolic murmur Pulses: PRESENT: normal dorsalis pedis pul Vascular exam: PRESENT: normal capillary refill GI/Abdominal exam: PRESENT: normal bowel sounds, soft. ABSENT: distended, guarding, mass, organolmegaly, rebound, tenderness Rectal exam: PRESENT: deferred Extremities exam: PRESENT: full ROM. ABSENT: calf tenderness, clubbing, pedal edema Neurological exam: PRESENT: alert, altered, CN II-XII grossly intact Psychiatric exam: PRESENT: anxious, normal mood Focused psych exam: PRESENT: restlessness Skin exam: PRESENT: dry, intact, warm. ABSENT: cyanosis, rash Results Laboratory Results: 05/30/16 07:05 05/30/16 05:17 05/30/16 05/30/16 05/30/16 05:17 05:17 07:05 WBC Cancelled 8.1 RBC Cancelled 3.59 L Hgb Cancelled 8.8 L Hct Cancelled 28.6 L MCV Cancelled 80 MCH Cancelled 24.6 L MCHC Cancelled 30.9 L RDW Cancelled 19.5 H Plt Count Cancelled 427 Seg Neutrophils % Cancelled 85.8 H Lymphocytes % Cancelled 8.4 L Monocytes % Cancelled 5.7 Eosinophils % Cancelled 0.0 Basophils % Cancelled 0.1 Absolute Neutrophils Cancelled 7.0 Absolute Lymphocytes Cancelled 0.7 Absolute Monocytes Cancelled 0.5 Absolute Eosinophils Cancelled 0.0 Absolute Basophils Cancelled 0.0 Sodium 142.0 Potassium 5.0 Chloride 110 H Carbon Dioxide 25 Anion Gap 7 BUN 21 H Creatinine 0.64 Est GFR ( Amer) > 60 Est GFR (Non-Af Amer) > 60 Glucose 166 H Calcium 8.2 L 05/28/16 18:54 Catheterized Urine Urine Culture - Final NO GROWTH 2 DAYS 05/28/16 05/29/16 23:15 05:51 Troponin I 0.012 0.015 NT-Pro-B Natriuret Pep 738 H Impressions: Chest X-Ray 05/28/16 17:06 IMPRESSION: LOW LUNG VOLUMES. Bilateral Basilar subsegmental atelectasis.. Head CT 05/29/16 00:00 IMPRESSION: NO ACUTE INTRACRANIAL PROCESS. NO SIGNIFICANT CHANGE FROM PRIOR STUDY. Assessment & Plan - Diagnosis (1) Acute encephalopathy Is this a current diagnosis for this admission?: YesPlan: Most likely due to hypercapneic respiratory failure. However blood gas has normalized on BIPAP. She is back to baseline according to her daughter. (2) Pneumonia Qualifiers: Pneumonia type: due to unspecified organism Laterality: bilateral Lung location: lower lobe of lung Qualified Code(s): J18.9 - Pneumonia, unspecified organism Is this a current diagnosis for this admission?: YesPlan: Patient is on broad spectrum antibiotics, leucocytosis improved. Cultures pending (3) COPD exacerbation Is this a current diagnosis for this admission?: YesPlan: Continue nebulizer treatments (4) Dementia Qualifiers: Dementia type: unspecified type Dementia behavioral disturbance: with behavioral disturbance Qualified Code(s): F03.91 - Unspecified dementia with behavioral disturbance; F10.97 - Alcohol use, unspecified with alcohol- induced persisting dementia Is this a current diagnosis for this admission?: YesPlan: Patient is presently obtunded. Daughter states she converses at her baseline (5) DNR (do not resuscitate) Is this a current diagnosis for this admission?: YesPlan: Discussed with daughter who agrees (6) GERD (gastroesophageal reflux disease) Qualifiers: Esophagitis presence: esophagitis presence not specified Qualified Code(s): K21.9 - Gastro-esophageal reflux disease without esophagitis Is this a current diagnosis for this admission?: YesPlan: Continue PPI therapy - Time Time Spent with patient: 25-34 minutes Critical Time spent with patient: 15-24 minutes Medications reviewed and adjusted accordingly: Yes Anticipated discharge: SNF
[2016-05-30] MEDS ORDERED: LEVOFLOXACIN 750 MG/D5W RTU 750 MG/150 ML RTUPB IV SCH (16:00)
[2016-05-30] MEDS: HALOPERIDOL LACTATE INJ 5 MG/1 ML VIAL IV PRN (19:56)
[2016-05-30] MEDS: VANCOMYCIN HCL 500 MG in DEXTROSE 5%-WATER 100 ML IV SCH (21:47)
[2016-05-30] MEDS: MIRTAZAPINE 15 MG TABLET PO SCH (22:02)
[2016-05-30] MEDS: ATORVASTATIN CALCIUM 10 MG TABLET PO SCH (22:02)
[2016-05-31] MEDS: CEFEPIME 1 GM/D5W RTU 1 GM/50 ML RTUPB IV SCH ×2 (05:12→18:04)
[2016-05-31] MEDS: METHYLPREDNISOLONE INJ 125 MG/2 ML SDV IV SCH ×2 (05:16→13:55)
[2016-05-31 06:49] LABS: ABSOLUTE LYMPHOCYTES (AUTO) 0.7 10^3/uL (0.5-4.7); ABSOLUTE MONOCYTES (AUTO) 0.6 10^3/uL (0.1-1.4); ABSOLUTE NEUT (AUTO) 5.8 10^3/uL (1.7-8.2); HEMATOCRIT 25.3 % (36.0-47.0); HEMOGLOBIN 8.2 g/dL (12.0-15.5); HGB HCT DIFFERENCE -0.7; LYMPHOCYTES % (AUTO) 9.7 % (13-45); MEAN CORPUSCULAR HEMOGLOBIN 25.3 pg (27.0-33.4); MEAN CORPUSCULAR HGB CONC 32.4 g/dL (32.0-36.0); MEAN CORPUSCULAR VOLUME 78 fl (80-97); MONOCYTES % (AUTO) 8.1 % (3-13); RED BLOOD COUNT 3.24 10^6/uL (3.72-5.28); RED CELL DISTRIBUTION WIDTH 19.3 % (11.5-14.0); SEGMENTED NEUTROPHILS % (AUTO) 82.2 % (42-78)
[2016-05-31 06:57] LABS: ANION GAP 11 (5-19); BLOOD UREA NITROGEN 24 mg/dL (7-20); CALCIUM 8.1 mg/dL (8.4-10.2); CARBON DIOXIDE 28 mmol/L (22-30); CHLORIDE 102 mmol/L (98-107); CREATININE RESULT 0.84 mg/dL (0.52-1.25); GLUCOSE 165 mg/dL (75-110); POTASSIUM 3.6 mmol/L (3.6-5.0); SODIUM 140.9 mmol/L (137-145)
[2016-05-31] MEDS: RISPERIDONE 0.25 MG TABLET PO SCH ×2 (07:57→20:56)
[2016-05-31] MEDS: ENOXAPARIN SODIUM INJ 30 MG/0.3 ML DISP.SYRIN SUBCUT SCH (08:02)
[2016-05-31] MEDS: IPRATROPIUM/ALBUTEROL 0.5-2.5 MG/3 ML AMPUL NEB PRN (08:48)
[2016-05-31] MEDS: APIXABAN 2.5 MG TABLET PO SCH ×2 (09:32→18:04)
[2016-05-31] MEDS: FAMOTIDINE INJ/PF 20 MG/2 ML SDV IV SCH ×2 (09:32→20:55)
[2016-05-31] MEDS: PREDNISONE 5 MG TABLET PO SCH (09:33)
[2016-05-31] MEDS: POTASSIUM CHLORIDE 10 MEQ TABLET.SA PO SCH (09:33)
[2016-05-31] MEDS: DULOXETINE HCL 30 MG CAPSULE.DR PO SCH (09:33)
[2016-05-31] MEDS: DOCUSATE SODIUM 100 MG CAPSULE PO SCH ×2 (09:33→18:04)
[2016-05-31] MEDS: FUROSEMIDE 20 MG TABLET PO SCH (09:33)
[2016-05-31] MEDS: CETIRIZINE 10 MG TABLET PO SCH (09:34)
[2016-05-31] MEDS: GUAIFENESIN 600 MG TABLET.SA PO SCH ×2 (09:34→20:54)
--- NOTE | 2016-05-31 14:29 | PDOC PROGRESS REPORT ---
Subjective Progress Note for:: 05/31/16 Subjective:: Patient is seen on morning rounds. She awake and alert but confused which is her baseline. She has a congested cough this morning but improved from yesterday. She has not required bipap overnight. No family is presently available Unable to do review of systems with patient due to her mentation. Physical Exam Vital Signs: Temp Pulse Resp BP Pulse Ox 97.4 F 104 H 19 159/104 H 99 05/31/16 12:38 05/31/16 12:38 05/31/16 12:38 05/31/16 12:38 05/31/16 12:38 Intake & Output 05/30/16 05/31/16 06/01/16 06:59 06:59 06:59 Intake Total 1923 1239 168 Output Total 935 3100 1800 Balance 988 -1861 -1632 Weight 50.4 kg 50.4 kg General appearance: PRESENT: no acute distress, well-developed, well-nourished Head exam: PRESENT: atraumatic, normocephalic Eye exam: PRESENT: conjunctiva pink, EOMI, PERRLA. ABSENT: scleral icterus Ear exam: PRESENT: normal external ear exam Mouth exam: PRESENT: moist, tongue midline Neck exam: ABSENT: carotid bruit, JVD, lymphadenopathy, thyromegaly Respiratory exam: PRESENT: prolonged expiratory phas, rhonchi, symmetrical, unlabored, wheezes Cardiovascular exam: PRESENT: RRR. ABSENT: diastolic murmur, rubs, systolic murmur Pulses: PRESENT: normal dorsalis pedis pul Vascular exam: PRESENT: normal capillary refill GI/Abdominal exam: PRESENT: normal bowel sounds, soft. ABSENT: distended, guarding, mass, organolmegaly, rebound, tenderness Rectal exam: PRESENT: deferred Extremities exam: PRESENT: full ROM. ABSENT: calf tenderness, clubbing, pedal edema Neurological exam: PRESENT: alert, altered, CN II-XII grossly intact Psychiatric exam: PRESENT: anxious Skin exam: PRESENT: dry, intact, warm. ABSENT: cyanosis, rash Results Laboratory Results: 05/31/16 06:00 05/31/16 06:00 05/31/16 05/31/16 06:00 06:00 WBC 7.0 RBC 3.24 L Hgb 8.2 L Hct 25.3 L MCV 78 L MCH 25.3 L MCHC 32.4 RDW 19.3 H Plt Count 393 Seg Neutrophils % 82.2 H Lymphocytes % 9.7 L Monocytes % 8.1 Eosinophils % 0.0 Basophils % 0.0 Absolute Neutrophils 5.8 Absolute Lymphocytes 0.7 Absolute Monocytes 0.6 Absolute Eosinophils 0.0 Absolute Basophils 0.0 Sodium 140.9 Potassium 3.6 Chloride 102 Carbon Dioxide 28 Anion Gap 11 BUN 24 H Creatinine 0.84 Est GFR ( Amer) > 60 Est GFR (Non-Af Amer) > 60 Glucose 165 H Calcium 8.1 L 05/28/16 23:15 Nasophary (Mrsa Only) MRSA Surveillance Culture - Final MRSA RECOVERED 05/28/16 05/29/16 23:15 05:51 Troponin I 0.012 0.015 NT-Pro-B Natriuret Pep 738 H Impressions: Chest X-Ray 05/28/16 17:06 IMPRESSION: LOW LUNG VOLUMES. Bilateral Basilar subsegmental atelectasis.. Head CT 05/29/16 00:00 IMPRESSION: NO ACUTE INTRACRANIAL PROCESS. NO SIGNIFICANT CHANGE FROM PRIOR STUDY. Assessment & Plan - Diagnosis (1) Acute encephalopathy Is this a current diagnosis for this admission?: YesPlan: Most likely due to hypercapneic respiratory failure. However blood gas has normalized on BIPAP. She is back to baseline according to her daughter. (2) Pneumonia Qualifiers: Pneumonia type: due to unspecified organism Laterality: bilateral Lung location: lower lobe of lung Qualified Code(s): J18.9 - Pneumonia, unspecified organism Is this a current diagnosis for this admission?: YesPlan: Patient is on broad spectrum antibiotics, leucocytosis improved. Cultures pending (3) COPD exacerbation Is this a current diagnosis for this admission?: YesPlan: Continue nebulizer treatments (4) Dementia Qualifiers: Dementia type: unspecified type Dementia behavioral disturbance: with behavioral disturbance Qualified Code(s): F03.91 - Unspecified dementia with behavioral disturbance; F10.97 - Alcohol use, unspecified with alcohol- induced persisting dementia Is this a current diagnosis for this admission?: YesPlan: Patient is presently obtunded. Daughter states she converses at her baseline (5) DNR (do not resuscitate) Is this a current diagnosis for this admission?: YesPlan: Discussed with daughter who agrees (6) GERD (gastroesophageal reflux disease) Qualifiers: Esophagitis presence: esophagitis presence not specified Qualified Code(s): K21.9 - Gastro-esophageal reflux disease without esophagitis Is this a current diagnosis for this admission?: YesPlan: Continue PPI therapy - Time Time Spent with patient: 25-34 minutes Critical Time spent with patient: 15-24 minutes Medications reviewed and adjusted accordingly: Yes Anticipated discharge: SNF
[2016-05-31] MEDS ORDERED: HYDRALAZINE HCL INJ/PF 20 MG/1 ML SDV IV PRN (16:22)
[2016-05-31] MEDS: ATORVASTATIN CALCIUM 10 MG TABLET PO SCH (20:53)
[2016-05-31] MEDS: MIRTAZAPINE 15 MG TABLET PO SCH (20:55)
[2016-05-31] MEDS ORDERED: METHYLPREDNISOLONE INJ 40 MG/1 ML SDV IV SCH (22:00)
[2016-05-31 22:09] LABS: CREATININE RESULT 0.65 mg/dL (0.52-1.25)
[2016-05-31 22:18] LABS: TROUGH DRAW TIME 2140
[2016-05-31] MEDS: HALOPERIDOL LACTATE INJ 5 MG/1 ML VIAL IV PRN (22:47)
[2016-05-31] MEDS: VANCOMYCIN HCL 500 MG in DEXTROSE 5%-WATER 100 ML IV SCH (23:06)
[2016-06-01] MEDS: HALOPERIDOL LACTATE INJ 5 MG/1 ML VIAL IV PRN ×2 (03:02→20:40)
[2016-06-01] MEDS: CEFEPIME 1 GM/D5W RTU 1 GM/50 ML RTUPB IV SCH ×2 (06:02→17:21)
[2016-06-01] MEDS ORDERED: VANCOMYCIN HCL 500 MG in DEXTROSE 5%-WATER 100 ML IV SCH (10:00)
[2016-06-01] MEDS: FUROSEMIDE 20 MG TABLET PO SCH (10:41)
[2016-06-01] MEDS: APIXABAN 2.5 MG TABLET PO SCH ×2 (10:41→17:22)
[2016-06-01] MEDS: RISPERIDONE 0.25 MG TABLET PO SCH ×2 (10:41→21:04)
[2016-06-01] MEDS: DULOXETINE HCL 30 MG CAPSULE.DR PO SCH (10:42)
[2016-06-01] MEDS: POTASSIUM CHLORIDE 10 MEQ TABLET.SA PO SCH (10:42)
[2016-06-01] MEDS: CETIRIZINE 10 MG TABLET PO SCH (10:42)
[2016-06-01] MEDS: PREDNISONE 20 MG TABLET PO SCH (10:42)
[2016-06-01] MEDS: GUAIFENESIN 600 MG TABLET.SA PO SCH ×2 (10:42→21:06)
[2016-06-01] MEDS: FAMOTIDINE 20 MG TABLET PO SCH ×2 (10:43→21:05)
[2016-06-01] MEDS: DOCUSATE SODIUM 100 MG CAPSULE PO SCH ×2 (10:43→17:22)
--- NOTE | 2016-06-01 12:04 | PDOC PROGRESS REPORT ---
Subjective Progress Note for:: 06/01/16 Subjective:: Patient is seen on morning rounds. She is sleeping soundly. She awakens to verbal stimuli but remains confused. She was very agitated overnight. She has a congested cough this morning but improved from yesterday. She has not required bipap overnight. No family is presently available Unable to do review of systems with patient due to her mentation. Physical Exam Vital Signs: Temp Pulse Resp BP Pulse Ox 97.3 F 71 12 145/100 H 99 06/01/16 03:55 06/01/16 08:51 06/01/16 08:51 06/01/16 03:55 06/01/16 08:51 Intake & Output 05/31/16 06/01/16 06/02/16 06:59 06:59 06:59 Intake Total 1239 881 Output Total 3100 4150 Balance -1861 -3269 Weight 50.4 kg 45.1 kg General appearance: PRESENT: no acute distress, well-developed, well-nourished Head exam: PRESENT: atraumatic, normocephalic Eye exam: PRESENT: conjunctiva pale Ear exam: PRESENT: normal external ear exam Mouth exam: PRESENT: moist, tongue midline Neck exam: ABSENT: carotid bruit, JVD, lymphadenopathy, thyromegaly Respiratory exam: PRESENT: clear to auscultation magdalena. ABSENT: rales, rhonchi, wheezes Cardiovascular exam: PRESENT: RRR. ABSENT: diastolic murmur, rubs, systolic murmur Pulses: PRESENT: normal dorsalis pedis pul GI/Abdominal exam: PRESENT: normal bowel sounds, soft. ABSENT: distended, guarding, mass, organolmegaly, rebound, tenderness Rectal exam: PRESENT: deferred Extremities exam: PRESENT: full ROM. ABSENT: calf tenderness, clubbing, pedal edema Neurological exam: PRESENT: alert, altered, CN II-XII grossly intact Psychiatric exam: PRESENT: anxious, other - agitated at times Skin exam: PRESENT: dry, intact, warm. ABSENT: cyanosis, rash Results Laboratory Results: 05/31/16 06:00 05/31/16 21:40 05/31/16 21:40 Creatinine 0.65 Est GFR ( Amer) > 60 Est GFR (Non-Af Amer) > 60 05/28/16 23:15 Nasophary (Mrsa Only) MRSA Surveillance Culture - Final MRSA RECOVERED 05/28/16 05/29/16 23:15 05:51 Troponin I 0.012 0.015 NT-Pro-B Natriuret Pep 738 H Impressions: Chest X-Ray 05/28/16 17:06 IMPRESSION: LOW LUNG VOLUMES. Bilateral Basilar subsegmental atelectasis.. Head CT 05/29/16 00:00 IMPRESSION: NO ACUTE INTRACRANIAL PROCESS. NO SIGNIFICANT CHANGE FROM PRIOR STUDY. Assessment & Plan - Diagnosis (1) Acute encephalopathy Is this a current diagnosis for this admission?: YesPlan: Most likely due to hypercapneic respiratory failure. However blood gas has normalized on BIPAP. She is back to baseline mentation according to her daughter. (2) Pneumonia Qualifiers: Pneumonia type: due to unspecified organism Laterality: bilateral Lung location: lower lobe of lung Qualified Code(s): J18.9 - Pneumonia, unspecified organism Is this a current diagnosis for this admission?: YesPlan: Patient is on broad spectrum antibiotics, leucocytosis improved. Cultures pending (3) COPD exacerbation Is this a current diagnosis for this admission?: YesPlan: Continue nebulizer treatments (4) Dementia Qualifiers: Dementia type: unspecified type Dementia behavioral disturbance: with behavioral disturbance Qualified Code(s): F03.91 - Unspecified dementia with behavioral disturbance; F10.97 - Alcohol use, unspecified with alcohol- induced persisting dementia Is this a current diagnosis for this admission?: YesPlan: Patient is presently obtunded. Daughter states she converses at her baseline (5) DNR (do not resuscitate) Is this a current diagnosis for this admission?: YesPlan: Discussed with daughter who agrees (6) GERD (gastroesophageal reflux disease) Qualifiers: Esophagitis presence: esophagitis presence not specified Qualified Code(s): K21.9 - Gastro-esophageal reflux disease without esophagitis Is this a current diagnosis for this admission?: YesPlan: Continue PPI therapy - Time Time Spent with patient: 25-34 minutes Critical Time spent with patient: 15-24 minutes Medications reviewed and adjusted accordingly: Yes Anticipated discharge: SNF
[2016-06-01] MEDS: LEVOFLOXACIN 750 MG TABLET PO SCH (17:22)
[2016-06-01] MEDS: ATORVASTATIN CALCIUM 10 MG TABLET PO SCH (21:05)
[2016-06-01] MEDS: MIRTAZAPINE 15 MG TABLET PO SCH (21:09)
[2016-06-02] MEDS: CEFEPIME 1 GM/D5W RTU 1 GM/50 ML RTUPB IV SCH (05:33)
[2016-06-02 06:55] LABS: ANION GAP 14 (5-19); BLOOD UREA NITROGEN 42 mg/dL (7-20); CALCIUM 9.7 mg/dL (8.4-10.2); CARBON DIOXIDE 33 mmol/L (22-30); CHLORIDE 91 mmol/L (98-107); CREATININE RESULT 0.96 mg/dL (0.52-1.25); GLUCOSE 87 mg/dL (75-110)
--- NOTE | 2016-06-02 08:46 | PDOC PROGRESS REPORT ---
Subjective Progress Note for:: 06/02/16 Subjective:: Patient is seen on morning rounds. She is sleeping soundly. She is awake,and alert but confused which is her baseline. She is not agitated this morning. Her cough has improved greatly. She has not required bipap overnight. No family is presently available Unable to do review of systems with patient due to her mentation. Physical Exam Vital Signs: Temp Pulse Resp BP Pulse Ox 97.2 F 89 20 135/85 H 100 06/02/16 03:19 06/02/16 03:19 06/02/16 03:19 06/02/16 03:19 06/02/16 03:19 Intake & Output 06/01/16 06/02/16 06/03/16 06:59 06:59 06:59 Intake Total 881 1056 Output Total 4150 1400 Balance -3269 -344 Weight 45.1 kg 44.8 kg General appearance: PRESENT: no acute distress, thin, well-developed, well- nourished Head exam: PRESENT: atraumatic Eye exam: PRESENT: conjunctival injection Ear exam: PRESENT: normal external ear exam Mouth exam: PRESENT: moist, tongue midline Neck exam: ABSENT: carotid bruit, JVD, lymphadenopathy, thyromegaly Respiratory exam: PRESENT: clear to auscultation magdalena - bilateral bases, decreased breath sounds, symmetrical, unlabored Cardiovascular exam: PRESENT: RRR. ABSENT: diastolic murmur, rubs, systolic murmur Pulses: PRESENT: normal dorsalis pedis pul Vascular exam: PRESENT: normal capillary refill GI/Abdominal exam: PRESENT: normal bowel sounds, soft. ABSENT: distended, guarding, mass, organolmegaly, rebound, tenderness Rectal exam: PRESENT: deferred Extremities exam: PRESENT: full ROM. ABSENT: calf tenderness, clubbing, pedal edema Neurological exam: PRESENT: alert, altered, oriented to person, CN II-XII grossly intact Psychiatric exam: PRESENT: appropriate affect, normal mood. ABSENT: homicidal ideation, suicidal ideation Skin exam: PRESENT: dry, intact, warm. ABSENT: cyanosis, rash Results Laboratory Results: 06/02/16 05:50 06/02/16 06/02/16 05:50 05:50 WBC Cancelled RBC Cancelled Hgb Cancelled Hct Cancelled MCV Cancelled MCH Cancelled MCHC Cancelled RDW Cancelled Plt Count Cancelled Seg Neutrophils % Cancelled Lymphocytes % Cancelled Monocytes % Cancelled Eosinophils % Cancelled Basophils % Cancelled Absolute Neutrophils Cancelled Absolute Lymphocytes Cancelled Absolute Monocytes Cancelled Absolute Eosinophils Cancelled Absolute Basophils Cancelled Sodium 138.0 Potassium 3.0 L* Chloride 91 L Carbon Dioxide 33 H Anion Gap 14 BUN 42 H Creatinine 0.96 Est GFR ( Amer) > 60 Est GFR (Non-Af Amer) 55 L Glucose 87 Calcium 9.7 05/28/16 05/29/16 23:15 05:51 Troponin I 0.012 0.015 NT-Pro-B Natriuret Pep 738 H Impressions: Chest X-Ray 05/28/16 17:06 IMPRESSION: LOW LUNG VOLUMES. Bilateral Basilar subsegmental atelectasis.. Head CT 05/29/16 00:00 IMPRESSION: NO ACUTE INTRACRANIAL PROCESS. NO SIGNIFICANT CHANGE FROM PRIOR STUDY. Assessment & Plan - Diagnosis (1) Acute encephalopathy Is this a current diagnosis for this admission?: YesPlan: Most likely due to hypercapneic respiratory failure. She is back to her baseline (2) Pneumonia Qualifiers: Pneumonia type: due to unspecified organism Laterality: bilateral Lung location: lower lobe of lung Qualified Code(s): J18.9 - Pneumonia, unspecified organism Is this a current diagnosis for this admission?: YesPlan: Will transition to po antibiotics in preparation for discharge (3) COPD exacerbation Is this a current diagnosis for this admission?: YesPlan: Continue nebulizer treatments (4) Dementia Qualifiers: Dementia type: unspecified type Dementia behavioral disturbance: with behavioral disturbance Qualified Code(s): F03.91 - Unspecified dementia with behavioral disturbance; F10.97 - Alcohol use, unspecified with alcohol- induced persisting dementia Is this a current diagnosis for this admission?: YesPlan: Patient is presently obtunded. Daughter states she converses at her baseline (5) DNR (do not resuscitate) Is this a current diagnosis for this admission?: YesPlan: Discussed with daughter who agrees (6) GERD (gastroesophageal reflux disease) Qualifiers: Esophagitis presence: esophagitis presence not specified Qualified Code(s): K21.9 - Gastro-esophageal reflux disease without esophagitis Is this a current diagnosis for this admission?: YesPlan: Continue PPI therapy - Time Time Spent with patient: 25-34 minutes Critical Time spent with patient: 15-24 minutes Medications reviewed and adjusted accordingly: Yes Anticipated discharge: SNF Within: within 24 hours
[2016-06-02 09:04] LABS: HEMATOCRIT 33.2 % (36.0-47.0); HGB HCT DIFFERENCE -1.4; MEAN CORPUSCULAR HEMOGLOBIN 24.6 pg (27.0-33.4); MEAN CORPUSCULAR HGB CONC 31.9 g/dL (32.0-36.0); MEAN CORPUSCULAR VOLUME 77 fl (80-97); RED BLOOD COUNT 4.31 10^6/uL (3.72-5.28); RED CELL DISTRIBUTION WIDTH 18.8 % (11.5-14.0); WHITE BLOOD COUNT 11.2 10^3/uL (4.0-10.5)
[2016-06-02] MEDS: CETIRIZINE 10 MG TABLET PO SCH (09:11)
[2016-06-02] MEDS: DOCUSATE SODIUM 100 MG CAPSULE PO SCH ×2 (09:11→18:28)
[2016-06-02] MEDS: GUAIFENESIN 600 MG TABLET.SA PO SCH ×2 (09:11→22:02)
[2016-06-02] MEDS: PREDNISONE 20 MG TABLET PO SCH (09:11)
[2016-06-02] MEDS: DULOXETINE HCL 30 MG CAPSULE.DR PO SCH (09:11)
[2016-06-02] MEDS: FAMOTIDINE 20 MG TABLET PO SCH ×2 (09:12→22:02)
[2016-06-02] MEDS: RISPERIDONE 0.25 MG TABLET PO SCH ×2 (09:12→22:03)
[2016-06-02] MEDS: POTASSIUM CHLORIDE 10 MEQ TABLET.SA PO SCH (09:12)
[2016-06-02] MEDS: FUROSEMIDE 20 MG TABLET PO SCH (09:12)
[2016-06-02] MEDS: APIXABAN 2.5 MG TABLET PO SCH ×2 (09:13→18:28)
[2016-06-02] MEDS: DOXYCYCLINE HYCLATE 100 MG TABLET PO SCH ×2 (09:16→22:02)
[2016-06-02 09:19] LABS: HEMOGLOBIN 10.6 g/dL (12.0-15.5)
[2016-06-02 09:22] LABS: BAND NEUTROPHILS % (MANUAL) 2 % (3-5); BASOPHILS % (MANUAL) 0 % (0-2); EOSINOPHILS % (MANUAL) 0 % (0-6); LYMPHOCYTES % (MANUAL) 28 % (13-45); TOTAL CELLS COUNTED 100
[2016-06-02 09:23] LABS: ANISOCYTOSIS 2+; HYPOCHROMASIA SLIGHT; MICROCYTOSIS SLIGHT; OVALOCYTES 1+; POIKILOCYTOSIS 1+; TOXIC GRANULATION 1+
[2016-06-02] MEDS ORDERED: POTASSIUM CHLORIDE 10 MEQ TABLET.SA PO ONE (09:30)
[2016-06-02] MEDS: HALOPERIDOL LACTATE INJ 5 MG/1 ML VIAL IV PRN (13:34)
[2016-06-02] MEDS ORDERED: IPRATROPIUM/ALBUTEROL 0.5-2.5 MG/3 ML AMPUL NEB PRN (14:04)
[2016-06-02] MEDS: MIRTAZAPINE 15 MG TABLET PO SCH (22:02)
[2016-06-02] MEDS: ATORVASTATIN CALCIUM 10 MG TABLET PO SCH (22:02)
[2016-06-03] MEDS ORDERED: PREDNISONE 20 MG TABLET PO SCH (10:00)
[2016-06-03] MEDS: DULOXETINE HCL 30 MG CAPSULE.DR PO SCH (10:10)
[2016-06-03] MEDS: RISPERIDONE 0.25 MG TABLET PO SCH (10:10)
[2016-06-03] MEDS: FUROSEMIDE 20 MG TABLET PO SCH (10:12)
[2016-06-03] MEDS: DOCUSATE SODIUM 100 MG CAPSULE PO SCH (10:13)
[2016-06-03] MEDS: POTASSIUM CHLORIDE 10 MEQ TABLET.SA PO SCH (10:13)
[2016-06-03] MEDS: DOXYCYCLINE HYCLATE 100 MG TABLET PO SCH (10:13)
[2016-06-03] MEDS: FAMOTIDINE 20 MG TABLET PO SCH (10:13)
[2016-06-03] MEDS: CETIRIZINE 10 MG TABLET PO SCH (10:13)
[2016-06-03] MEDS: GUAIFENESIN 600 MG TABLET.SA PO SCH (10:13)
[2016-06-03] MEDS: APIXABAN 2.5 MG TABLET PO SCH (10:17)
--- NOTE | 2016-06-03 11:48 | PDOC TRANSFER SUMMARY ---
General - Admit/Disc Date/PCP Admission Date/Primary Care Provider: 05/28/16 18:46 JADA BANG Discharge Date: 06/03/16 - Discharge Diagnosis (1) Acute encephalopathy Is this a current diagnosis for this admission?: YesSummary: Resolved to baseline. She was hypercapneici on admission (2) Pneumonia Is this a current diagnosis for this admission?: YesSummary: Transitioned to oral antibiotics from IV. Continue on Doxycyline 100 mg po bid x 7 more days (3) COPD exacerbation Is this a current diagnosis for this admission?: YesSummary: Continue nebulizer treatments, wean steroids (4) Dementia Is this a current diagnosis for this admission?: Yes (5) DNR (do not resuscitate) Is this a current diagnosis for this admission?: Yes (6) GERD (gastroesophageal reflux disease) Is this a current diagnosis for this admission?: YesSummary: Continue PPI - Additional Information Resuscitation Status: Do Not Resuscitate Discharge Diet: Regular Discharge Activity: Activity As Tolerated, Balance Activity w/Rest Home Medications: Calcium Carbonate/Vitamin D3 [Super Calcium 600-Vit D3 400] 1 each PO DAILY Cetirizine HCl [Zyrtec] 10 mg PO DAILY 01/28/16 Cholecalciferol (Vitamin D3) [Vitamin D3] 2,000 unit PO DAILY 01/28/16 Cyanocobalamin (Vitamin B-12) [Vitamin B-12] 1,000 mcg PO DAILY 01/28/16 Docusate Sodium [Colace 100 mg Capsule] 100 mg PO BID 01/28/16 Duloxetine HCl [Cymbalta] 60 mg PO DAILY 01/28/16 Furosemide [Lasix 20 mg Tablet] 20 mg PO DAILY 01/28/16 Ipratropium/Albuterol Sulfate [Duoneb 3 ml Ampul] 3 ml NEB TID 01/28/16 Lorazepam [Ativan 0.5 mg Tablet] 0.5 mg PO Q8H PRN 01/28/16 Mirtazapine [Remeron] 30 mg PO QHS 01/28/16 Omeprazole 20 mg PO DAILY 01/28/16 Potassium Chloride [K-Tab ER] 10 meq PO DAILY 01/28/16 Risperidone [Risperdal 0.25 mg Tablet] 0.25 mg PO QAM 01/28/16 Apixaban [Eliquis 5 mg Tablet] 2.5 mg PO BID #60 tablet 03/10/16 Risperidone [Risperdal 1 mg Tablet] 0.5 mg PO QHS #30 tablet 03/10/16 Atorvastatin Calcium [Lipitor 10 mg Tablet] 10 mg PO QHS 05/28/16 Doxycycline Hyclate [Vibramycin 100 mg Tablet] 100 mg PO Q12 #14 tablet Guaifenesin [Mucinex Sr 600 mg Tablet.sa] 600 mg PO Q12 #14 tablet.sa 06/03/16 Prednisone 5 mg PO DAILY #0 06/03/16 Prednisone [Deltasone 20 mg Tablet] 20 mg PO DAILY #6 tablet 06/03/16 Tramadol HCl [Ultram 50 mg Tablet] 50 mg PO Q12 PRN #10 tablet 06/03/16 History of Present Illness Admission Date/PCP: 05/28/16 18:46 JADA BANG History of Present Illness: GRACIELA WHITFIELD is a 86 year old female with history of bronchiectasis, chronic bronchitis, and pneumonia (last episode in February 2016) presents to the ED from [facility] via EMS in respiratory distress. [facility] states that the patient was at 80% on room air. Patient was given breathing treatment and oxygen which raised her oxygen saturation to 100%. Patient's daughter states that she saw the patient earlier today for lunch and had a normal conversation with her. Daughter states that the patient seemed unwell and tired while having lunch with her. Daughter explains that the patient fell on Thanksgiving and injured her back and is having difficulty coughing secondary to this. Daughter denies the patient choking on her food today. Hospital Course Hospital Course: Patient was admitted to [facility] on telemetry. She required BIPAP for 24 hrs then was able to be weaned to nasal cannula. She is presently saturating well on room air. She had periods of agitation after her initial somnolence on admission. She was given IV haldol. This improved with weaning steroids. She has been diuresing well. She is eating fairly well. She has been afebrile and has had a normal white count for the last 2 days. Physical Exam Vital Signs: Temp Pulse Resp BP Pulse Ox 97.2 F 88 14 175/94 H 97 06/03/16 03:45 06/03/16 11:09 06/03/16 11:09 06/03/16 03:45 06/03/16 03:45 Intake & Output 06/02/16 06/03/16 06/04/16 06:59 06:59 06:59 Intake Total 1056 1458 Output Total 1400 4090 Balance -344 -492 Weight 44.8 kg 44.1 kg General appearance: PRESENT: no acute distress, thin, well-developed, well- nourished Head exam: PRESENT: atraumatic, normocephalic Eye exam: PRESENT: conjunctiva pink, EOMI, PERRLA. ABSENT: scleral icterus Ear exam: PRESENT: bleeding Mouth exam: PRESENT: moist, tongue midline Neck exam: ABSENT: carotid bruit, JVD, lymphadenopathy, thyromegaly Respiratory exam: PRESENT: decreased breath sounds, symmetrical, unlabored Cardiovascular exam: PRESENT: RRR. ABSENT: diastolic murmur, rubs, systolic murmur Vascular exam: PRESENT: normal capillary refill GI/Abdominal exam: PRESENT: normal bowel sounds, soft. ABSENT: distended, guarding, mass, organolmegaly, rebound, tenderness Rectal exam: PRESENT: deferred Extremities exam: PRESENT: full ROM. ABSENT: calf tenderness, clubbing, pedal edema Musculoskeletal exam: PRESENT: ambulatory, deformity - osteoarthritic hands Neurological exam: PRESENT: alert, altered, awake, CN II-XII grossly intact Psychiatric exam: PRESENT: appropriate affect, normal mood Skin exam: PRESENT: dry, intact, warm. ABSENT: cyanosis, rash Results Laboratory Results: 06/02/16 08:18 06/03/16 09:03 06/03/16 09:03 Potassium 4.1 05/28/16 19:30 Blood Blood Culture - Final NO GROWTH IN 5 DAYS 05/28/16 05/29/16 23:15 05:51 Troponin I 0.012 0.015 NT-Pro-B Natriuret Pep 738 H Impressions: Chest X-Ray 05/28/16 17:06 IMPRESSION: LOW LUNG VOLUMES. Bilateral Basilar subsegmental atelectasis.. Head CT 05/29/16 00:00 IMPRESSION: NO ACUTE INTRACRANIAL PROCESS. NO SIGNIFICANT CHANGE FROM PRIOR STUDY. Transfer Plan - Disposition Transfer Plan: Return to [facility]. Follow up with primary care provider in one week - Time Spent with Patient Time spent with patient: Less than 30 Minutes Qualifiers PATEINT BEING DISCHARGED WITH ANY OF THE FOLLOWING DIAGNOSIS?: No Plan Time Spent: Less than 30 Minutes
[2016-06-03 12:24] VITALS: BP 156/80
[2016-06-03] MEDS: LEVOFLOXACIN 750 MG TABLET PO SCH (15:31)
== END 2016-06-03 15:36 | DRG 193 ==
LOC: ER 16:57 → EH 18:46 → UNDOADMIN 19:40 → EH 19:40 → 3S 21:36
PROVIDERS: ADMIT Family Medicine; ATTEND Family Medicine
PROC: 5A09357 Assistance with Respiratory Ventilation, Less than 24 Consecutive Hours, Continuous Positive Airway Pressure (ICD-10-PCS; principal; 2016-05-28)
DX: J18.9 Pneumonia, unspecified organism (principal); G93.49 Other encephalopathy; J96.02 Acute respiratory failure with hypercapnia; J44.1 Chronic obstructive pulmonary disease with (acute) exacerbation; F03.91 Unspecified dementia, unspecified severity, with behavioral disturbance; E78.5 Hyperlipidemia, unspecified; M06.9 Rheumatoid arthritis, unspecified; F32.9 Major depressive disorder, single episode, unspecified; K21.9 Gastro-esophageal reflux disease without esophagitis; F10.97 Alcohol use, unspecified with alcohol-induced persisting dementia; Z66 Do not resuscitate; Z88.6 Allergy status to analgesic agent; Z96.653 Presence of artificial knee joint, bilateral; Z87.01 Personal history of pneumonia (recurrent); Z79.52 Long term (current) use of systemic steroids; Z82.49 Family history of ischemic heart disease and other diseases of the circulatory system; Y95 Nosocomial condition
CPT/HCPCS: 36415; 51702; 70450; 71010; 80048; 80053; 80061; 80202; 81001; 82550; 82553; 82565; 82803; 83036; 83605; 83735; 83880; 84132; 84443; 84484; 85025; 85610; 87040; 87086; 93005; 93010; 94640; 94660; 96361; 96365; 96368; 99285; G8978-GP; G8979-GP; J0692; J1630; J1650; J1940; J1956; J2060; J2920; J2930; J3370; J3475; J3490; J7030; J7512; J7620; S0028

== ENCOUNTER 2016-06-17 13:49 | Inpatient (IN) | payer MEDICARE, OTHER ==
[2016-06-17] MEDS ORDERED: IPRATROPIUM/ALBUTEROL 0.5-2.5 MG/3 ML AMPUL NEB ONE (14:27)
[2016-06-17] MEDS ORDERED: NORMAL SALINE 1000 ML 1,000 ML IV ONE (14:27)
[2016-06-17 14:51] LABS: VENOUS BLOOD BASE EXCESS -1.1 mmol/L; VENOUS BLOOD HCO3 25.3 mmol/L (20-32); VENOUS BLOOD PCO2 49.3 mmHg (35-63); VENOUS BLOOD PH 7.33 (7.30-7.42)
[2016-06-17 14:54] LABS: HEMATOCRIT 36.4 % (36.0-47.0); HEMOGLOBIN 10.8 g/dL (12.0-15.5); MEAN CORPUSCULAR HEMOGLOBIN 24.5 pg (27.0-33.4); MEAN CORPUSCULAR HGB CONC 29.7 g/dL (32.0-36.0); PROTHROMBIN TIME 12.8 SEC (11.4-15.4); RED BLOOD COUNT 4.41 10^6/uL (3.72-5.28); RED CELL DISTRIBUTION WIDTH 22.8 % (11.5-14.0); WHITE BLOOD COUNT 12.8 10^3/uL (4.0-10.5)
[2016-06-17 15:08] LABS: MEAN CORPUSCULAR VOLUME 83 fl (80-97)
[2016-06-17 15:16] LABS: ALANINE AMINOTRANSFERASE 35 U/L (9-52); ALBUMIN 3.2 g/dL (3.5-5.0); ALKALINE PHOSPHATASE 118 U/L (38-126); ANION GAP 12 (5-19); ASPARTATE AMINO TRANSFERASE 25 U/L (14-36); BILIRUBIN,TOTAL 0.8 mg/dL (0.2-1.3); BLOOD UREA NITROGEN 32 mg/dL (7-20); CALCIUM 8.9 mg/dL (8.4-10.2); CARBON DIOXIDE 28 mmol/L (22-30); CHLORIDE 100 mmol/L (98-107); CREATININE RESULT 0.85 mg/dL (0.52-1.25); GLUCOSE 232 mg/dL (75-110); POTASSIUM 3.8 mmol/L (3.6-5.0); SODIUM 140.4 mmol/L (137-145); TOTAL PROTEIN 6.1 g/dL (6.3-8.2)
[2016-06-17] MEDS ORDERED: CEFTRIAXONE INJ 1000 MG VIAL IV ONE (15:20)
[2016-06-17 15:22] LABS: ANISOCYTOSIS 2+; BAND NEUTROPHILS % (MANUAL) 2 % (3-5); BASOPHILS % (MANUAL) 0 % (0-2); EOSINOPHILS % (MANUAL) 0 % (0-6); HYPOCHROMASIA 1+; LYMPHOCYTES % (MANUAL) 1 % (13-45); PLATELET CLUMPS PRESENT; POLYCHROMASIA SLIGHT; TOTAL CELLS COUNTED 100; TOXIC GRANULATION SLIGHT
--- NOTE | 2016-06-17 15:28 | ER Document Report ---
ED General - General Chief Complaint: Shortness Of Breath Stated Complaint: DIFFICULTY BREATHING Mode of Arrival: Medic Information source: Patient, Relative Cannot obtain history due to: Dementia Notes: 86 yr old female presents with complains of sob, diarrhea , cough of 1 day duration. pt found by ems having respriatroy distress, started on duo neb. pt recently admitted for pneumonia TRAVEL OUTSIDE OF THE [place] IN LAST 30 DAYS: No - HPI Onset: Yesterday Onset/Duration: Persistent Quality of pain: No pain Severity: Moderate Pain Level: Denies Associated symptoms: Body/muscle aches, Nonproductive cough, Shortness of breath Exacerbated by: Denies Relieved by: Denies Similar symptoms previously: Yes Recently seen / treated by doctor: Yes - Related Data Allergies/Adverse Reactions: aspirin Allergy (Verified 03/03/16 12:15) ibuprofen [From Motrin] Allergy (Verified 03/03/16 12:15) naproxen Allergy (Verified 03/03/16 12:15) Past Medical History - Social History Smoking Status: Never Smoker Cigarette use (# per day): No Chew tobacco use (# tins/day): No Smoking Education Provided: No Family History: Hypertension - Past Medical History Cardiac Medical History: Reports: Hx Hypercholesterolemia, Hx Hypertension Denies: Hx Heart Attack Pulmonary Medical History: Reports: Hx Bronchitis - bronchiectasis, Hx COPD, Hx Pneumonia Denies: Hx Asthma Neurological Medical History: Denies: Hx Cerebrovascular Accident, Hx Seizures GI Medical History: Denies: Hx Hepatitis, Hx Hiatal Hernia, Hx Ulcer Musculoskeltal Medical History: Reports Hx Arthritis - rheumatoid Psychiatric Medical History: Reports: Hx Depression Infectious Medical History: Denies: Hx Hepatitis Past Surgical History: Reports: Hx Cholecystectomy, Hx Hysterectomy, Hx Orthopedic Surgery - bilat knee replacement, rotator cuff sx, lamenectomy. Denies: Hx Mastectomy, Hx Open Heart Surgery, Hx Pacemaker - Immunizations Immunizations up to date: Yes Hx Diphtheria, Pertussis, Tetanus Vaccination: Yes Hx Pneumococcal Vaccination: 05/30/10 Review of Systems - Review of Systems Notes: REVIEW OF SYSTEMS: CONSTITUTIONAL : Denies fever, chills, or sweats. Denies recent illness. EENT: Denies eye, ear, throat, or mouth pain or symptoms. Denies nasal or sinus congestion or discharge. Denies throat, tongue, or mouth swelling or difficulty swallowing. CARDIOVASCULAR: Denies chest pain. Denies palpitations or racing or irregular heart beat. Denies ankle edema. RESPIRATORY:admist to cough , sob GASTROINTESTINAL: admits to diarrhea GENITOURINARY: Denies difficulty urinating, painful urination, burning, frequency, blood in urine, or discharge. FEMALE GENITOURINARY: Denies vaginal bleeding, heavy or abnormal periods, irregular periods. Denies vaginal discharge or odor. MUSCULOSKELETAL: Denies back or neck pain or stiffness. Denies joint pain or swelling. SKIN: Denies rash, lesions or sores. HEMATOLOGIC : Denies easy bruising or bleeding. LYMPHATIC: Denies swollen, enlarged glands. NEUROLOGICAL: Denies confusion or altered mental status. Denies passing out or loss of consciousness. Denies dizziness or lightheadedness. Denies headache. Denies weakness or paralysis or loss of use of either side. Denies problems with gait or speech. Denies sensory loss, numbness, or tingling. Denies seizures. PSYCHIATRIC: Denies anxiety or stress. Denies depression, suicidal ideation, or homicidal ideation. ALL OTHER SYSTEMS REVIEWED AND NEGATIVE. Dictation was performed using [employer] voice recognition software PHYSICAL EXAMINATION: GENERAL: ill appearing female in mild resp distress HEAD: Atraumatic, normocephalic. EYES: Pupils equal round and reactive to light, extraocular movements intact, conjunctiva are normal. ENT: Nares patent, oropharynx clear without exudates. Moist mucous membranes. NECK: Normal range of motion, supple without lymphadenopathy LUNGS: tachypneic coarse breath sounds notes HEART: tachycardic ABDOMEN: Soft, nontender, nondistended abdomen. No guarding, no rebound. No masses appreciated. Female : deferred Musculoskeletal: Normal range of motion, no pitting or edema. No cyanosis. NEUROLOGICAL: Cranial nerves grossly intact. Normal speech, normal gait. Normal sensory, motor exams PSYCH: Normal mood, normal affect. SKIN: Warm, Dry, normal turgor, no rashes or lesions noted. Course - Re-evaluation Re-evalutation: 06/17/16 15:37 pt appears ill, probably septic, awaiting source at this time - Laboratory Result Diagrams: 06/17/16 14:23 06/17/16 14:23 Laboratory results interpreted by me: 06/17/16 06/17/16 06/17/16 14:23 14:23 14:23 WBC 12.8 H Hgb 10.8 L MCH 24.5 L MCHC 29.7 L RDW 22.8 H Seg Neuts % (Manual) 91 H Band Neutrophils % 2 L Lymphocytes % (Manual) 1 L Metamyelocytes % 1 H Abs Neuts (Manual) 12.0 H Abs Lymphs (Manual) 0.1 L BUN 32 H Glucose 232 H Lactic Acid 3.8 H Total Protein 6.1 L Albumin 3.2 L Critical Care Note - Critical Care Note Total time excluding time spent on procedures (mins): 37 Comments: 37 minutes of critical care time spent in direct contact evaluating and reevaluating the patient, treating symptoms, reviewing labs and studies and speaking with family and consultants excluding any procedures Discharge - Discharge Clinical Impression: DNR (do not resuscitate), Respiratory distress Dementia Qualifiers: Dementia type: unspecified type Dementia behavioral disturbance: with behavioral disturbance Qualified Code(s): F03.91 - Unspecified dementia with behavioral disturbance Condition: Poor Disposition: ADMITTED INPATIENT Admitting Provider: Hospitalist Unit Admitted: Telemetry
[2016-06-17] MEDS ORDERED: VANCOMYCIN HCL INJ 1000 MG VIAL IV ONE (15:29)
[2016-06-17] MEDS ORDERED: PIPERACILLIN/TAZOBACTAM 3.375 GM VIAL IV ONE (15:29)
[2016-06-17 15:41] LABS: APPEARANCE,URINE CLEAR; BILIRUBIN,URINE NEGATIVE (NEGATIVE); GLUCOSE, URINE NEGATIVE (NEGATIVE); KETONES,URINE NEGATIVE (NEGATIVE); LEUKOCYTE ESTERASE,URINE NEGATIVE (NEGATIVE); NITRITE,URINE NEGATIVE (NEGATIVE); PROTEIN,URINE NEGATIVE (NEGATIVE); URINE SPECIFIC GRAVITY 1.012; UROBILINOGEN,URINE NEGATIVE mg/dL (<2.0)
--- NOTE | 2016-06-17 16:53 | PDOC H&P ---
History of Present Illness Admission Date/PCP: 06/17/16 16:18 Dr Sanches History of Present Illness: GRACIELA WHITFIELD is a 86 year old female who resides at [facility]; patient was brought to the ED after she had an episode of abdominal pain ,diarrhea, and nausea Patient was found somewhat hypoxemic and tachycardic; she was brought to the ED for evaluation Patient has a known history of chronic bronchitis recurrent pneumonia and bronchiectasis;she is not O2 dependent ; Past Medical History Cardiac Medical History: Reports: Hyperlipidema, Hypertension Denies: Myocardial Infarction Pulmonary Medical History: Reports: Bronchitis - bronchiectasis, Chronic Obstructive Pulmonary Disease (COPD), Pneumonia Denies: Asthma Neurological Medical History: Denies: Seizures GI Medical History: Denies: Hepatitis, Hiatal Hernia Musculoskeltal Medical History: Reports: Arthritis - rheumatoid Psychiatric Medical History: Reports: Depression Hematology: Denies: Anemia, Sickle Cell Disease Past Surgical History Past Surgical History: Reports: Cholecystectomy, Hysterectomy, Orthopedic Surgery - bilat knee replacement, rotator cuff sx, lamenectomy Denies: Amputation, Mastectomy, Pacemaker Social History Smoking Status: Never Smoker Frequency of Alcohol Use: None Hx Recreational Drug Use: No Drugs: None Hx Prescription Drug Abuse: No - Advance Directive Resuscitation Status: Do Not Resuscitate Surrogate healthcare decision maker:: Her daughter Family History Family History: Hypertension Parental Family History Reviewed: Yes - hypertension Children Family History Reviewed: No Sibling(s) Family History Reviewed.: No Medication/Allergy Home Medications: Calcium Carbonate/Vitamin D3 [Super Calcium 600-Vit D3 400] 1 each PO DAILY Cetirizine HCl [Zyrtec] 10 mg PO DAILY 01/28/16 Cholecalciferol (Vitamin D3) [Vitamin D3] 2,000 unit PO DAILY 01/28/16 Cyanocobalamin (Vitamin B-12) [Vitamin B-12] 1,000 mcg PO DAILY 01/28/16 Docusate Sodium [Colace 100 mg Capsule] 100 mg PO BID 01/28/16 Duloxetine HCl [Cymbalta] 60 mg PO DAILY 01/28/16 Furosemide [Lasix 20 mg Tablet] 20 mg PO DAILY 01/28/16 Ipratropium/Albuterol Sulfate [Duoneb 3 ml Ampul] 3 ml NEB TID 01/28/16 Lorazepam [Ativan 0.5 mg Tablet] 0.5 mg PO Q8H PRN 01/28/16 Mirtazapine [Remeron] 30 mg PO QHS 01/28/16 Omeprazole 20 mg PO DAILY 01/28/16 Potassium Chloride [K-Tab ER] 10 meq PO DAILY 01/28/16 Risperidone [Risperdal 0.25 mg Tablet] 0.25 mg PO QAM 01/28/16 Apixaban [Eliquis 5 mg Tablet] 2.5 mg PO BID #60 tablet 03/10/16 Risperidone [Risperdal 1 mg Tablet] 0.5 mg PO QHS #30 tablet 03/10/16 Atorvastatin Calcium [Lipitor 10 mg Tablet] 10 mg PO QHS 05/28/16 Doxycycline Hyclate [Vibramycin 100 mg Tablet] 100 mg PO Q12 #14 tablet Doxycycline Hyclate [Vibramycin] 100 mg PO BID #14 capsule 06/03/16 Guaifenesin [Mucinex Sr 600 mg Tablet.sa] 600 mg PO Q12 #14 tablet.sa 06/03/16 Prednisone 5 mg PO DAILY #0 06/03/16 Prednisone 20 mg PO ASDIR PRN #6 tablet 06/03/16 Prednisone [Deltasone 20 mg Tablet] 20 mg PO DAILY #6 tablet 06/03/16 Tramadol HCl [Ultram 50 mg Tablet] 50 mg PO Q12 PRN #10 tablet 06/03/16 Allergies/Adverse Reactions: aspirin Allergy (Verified 03/03/16 12:15) ibuprofen [From Motrin] Allergy (Verified 03/03/16 12:15) naproxen Allergy (Verified 03/03/16 12:15) Review of Systems Constitutional: PRESENT: weight loss - About 15 pounds in a year. ABSENT: chills, fever(s), headache(s), weight gain Eyes: ABSENT: visual disturbances Ears: ABSENT: hearing changes Cardiovascular: ABSENT: chest pain, dyspnea on exertion, edema, orthropnea, palpitations Respiratory: ABSENT: cough, hemoptysis Gastrointestinal: PRESENT: abdominal pain - Intermittent, diarrhea - Several times today, nausea, other - Anorexia. ABSENT: coffee ground emesis, hematemesis, hematochezia, vomiting Genitourinary: ABSENT: dysuria, hematuria Musculoskeletal: ABSENT: joint swelling Integumentary: ABSENT: rash, wounds Neurological: ABSENT: abnormal gait, abnormal speech, confusion, dizziness, focal weakness, syncope Psychiatric: ABSENT: anxiety, depression, homidical ideation, suicidal ideation Endocrine: ABSENT: cold intolerance, heat intolerance, polydipsia, polyuria Hematologic/Lymphatic: ABSENT: easy bleeding, easy bruising Physical Exam General appearance: PRESENT: no acute distress, hard of hearing, thin Head exam: PRESENT: atraumatic, normocephalic Eye exam: PRESENT: conjunctiva pink, EOMI, PERRLA. ABSENT: scleral icterus Neck exam: ABSENT: carotid bruit, JVD, lymphadenopathy, thyromegaly Respiratory exam: PRESENT: clear to auscultation magdalena. ABSENT: rales, rhonchi, wheezes Cardiovascular exam: PRESENT: RRR. ABSENT: diastolic murmur, rubs, systolic murmur Pulses: PRESENT: normal dorsalis pedis pul GI/Abdominal exam: PRESENT: normal bowel sounds, soft. ABSENT: distended, guarding, mass, organolmegaly, rebound, tenderness Rectal exam: PRESENT: deferred Neurological exam: PRESENT: alert, awake, oriented to person, oriented to place , oriented to time, oriented to situation, CN II-XII grossly intact. ABSENT: motor sensory deficit Psychiatric exam: PRESENT: appropriate affect Skin exam: PRESENT: dry, intact, warm. ABSENT: cyanosis, rash Results Laboratory Results: 06/17/16 06/17/16 06/17/16 14:23 14:23 14:23 WBC 12.8 H Hgb 10.8 L MCH 24.5 L MCHC 29.7 L RDW 22.8 H Seg Neuts % (Manual) 91 H Band Neutrophils % 2 L Lymphocytes % (Manual) 1 L Metamyelocytes % 1 H Abs Neuts (Manual) 12.0 H Abs Lymphs (Manual) 0.1 L BUN 32 H Glucose 232 H Lactic Acid 3.8 H Total Protein 6.1 L Albumin 3.2 L Impressions: Chest X-Ray 06/17/16 13:52 IMPRESSION: Minimal basilar atelectasis noted on the left. Lung volumes remain small. Assessment & Plan - Diagnosis (1) Abdominal pain Qualifiers: Abdominal location: generalized Qualified Code(s): R10.84 - Generalized abdominal pain Is this a current diagnosis for this admission?: YesPlan: Etiology is unclear Patient does have a high lactic acid but no metabolic acidosis It is unlikely that this is ischemic colitis The likely causes gastroenteritis associated with diarrhea We will initiate treatment with Cipro and Flagyl and reevaluate patient in a.m. If patient's abdominal pain is persistent and leukocytosis is persistent; she has blood in her stools We will schedule her for CT abdomen and pelvis with contrast (2) Diarrhea Qualifiers: Diarrhea type: unspecified type Qualified Code(s): R19.7 - Diarrhea , unspecified Is this a current diagnosis for this admission?: YesPlan: C. difficile colitis should be ruled out as patient was on antibiotics not too long ago Continue Cipro Flagyl (3) Bronchiectasis Qualifiers: Bronchiectasis type: uncomplicated Qualified Code(s): J47.9 - Bronchiectasis, uncomplicated Is this a current diagnosis for this admission?: YesPlan: Patient appears stable at this time No respiratory distress No significant hypoxemia. ; continue O2 supplementation No evidence of pneumonia on the chest x-ray (4) History of pulmonary embolism Is this a current diagnosis for this admission?: YesPlan: Continue Eliquis (5) Rheumatoid arthritis Qualifiers: Rheumatoid factor presence: unspecified presence Laterality: unspecified laterality Is this a current diagnosis for this admission?: YesPlan: Continue prednisone (6) Sepsis Qualifiers: Sepsis type: sepsis due to unspecified organism Qualified Code(s): A41.9 - Sepsis, unspecified organism Is this a current diagnosis for this admission?: YesPlan: Patient does qualify for sepsis as she has tachycardia leukocytosis and high lactic acid source of sepsis is unclear She did have diarrhea prior to admission ;we will continue Cipro and Flagyl Continue hydration with normal saline (7) DNR (do not resuscitate) Is this a current diagnosis for this admission?: Yes - Time Time Spent with patient: Admit the patient to telemetry unit Time Spent: Greater than 70 Minutes - Inpatient Certification Based on my medical assessment, after consideration of the patient's comorbidities, presenting symptoms, or acuity I expect that the services needed warrant INPATIENT care.: Yes I certify that my determination is in accordance with my understanding of Medicare's requirements for reasonable and necessary INPATIENT services [42 CFR 412.3e].: Yes
[2016-06-17] MEDS ORDERED: APIXABAN 5 MG TABLET PO SCH (18:00)
[2016-06-17] MEDS: METRONIDAZOLE 500 MG/NS RTU 100 ML IV SCH (18:48)
[2016-06-17] MEDS: NORMAL SALINE 1000 ML 1,000 ML IV PRN (18:49)
--- NOTE | 2016-06-17 19:07 | EKG REPORT ---
SEVERITY:- BORDERLINE ECG - SINUS TACHYCARDIA BORDERLINE R WAVE PROGRESSION, ANTERIOR LEADS BORDERLINE T ABNORMALITIES, INFERIOR LEADS : Confirmed by: Christ Mendoza MD 17-Jun-2016 19:06:51
[2016-06-18] MEDS ORDERED: LORAZEPAM 0.5 MG TABLET PO PRN (00:52)
[2016-06-18] MEDS ORDERED: IPRATROPIUM/ALBUTEROL 0.5-2.5 MG/3 ML AMPUL NEB PRN (00:53)
[2016-06-18] MEDS ORDERED: ACETAMINOPHEN 325 MG TABLET PO PRN (00:53)
[2016-06-18] MEDS: METRONIDAZOLE 500 MG/NS RTU 100 ML IV SCH ×4 (01:12→17:17)
[2016-06-18] MEDS: NORMAL SALINE 1000 ML 1,000 ML IV PRN (01:13)
[2016-06-18] MEDS ORDERED: MIRTAZAPINE 15 MG TABLET PO ONE (01:45)
[2016-06-18] MEDS ORDERED: RISPERIDONE 1 MG TABLET PO ONE (01:45)
[2016-06-18] MEDS ORDERED: APIXABAN 5 MG TABLET PO SCH ×2 (10:00→18:00)
[2016-06-18] MEDS ORDERED: DOCUSATE SODIUM 100 MG CAPSULE PO SCH (10:00)
[2016-06-18] MEDS ORDERED: RISPERIDONE 0.25 MG TABLET PO PRN (12:00)
[2016-06-18] MEDS ORDERED: CIPROFLOXACIN 200 MG/D5W RTU 200 MG/100 ML RTUPB IV SCH (12:00)
[2016-06-18 12:30] LABS: ABSOLUTE MONOCYTES (AUTO) 0.9 10^3/uL (0.1-1.4); BASOPHILS % (AUTO) 0.4 % (0-2); EOSINOPHILS % (AUTO) 0.3 % (0-6); HEMOGLOBIN 9.8 g/dL (12.0-15.5); HGB HCT DIFFERENCE -2.6; LYMPHOCYTES % (AUTO) 11.1 % (13-45); MEAN CORPUSCULAR HEMOGLOBIN 25.3 pg (27.0-33.4); MEAN CORPUSCULAR HGB CONC 30.6 g/dL (32.0-36.0); MEAN CORPUSCULAR VOLUME 83 fl (80-97); MONOCYTES % (AUTO) 9.8 % (3-13); RED BLOOD COUNT 3.89 10^6/uL (3.72-5.28); RED CELL DISTRIBUTION WIDTH 22.3 % (11.5-14.0); SEGMENTED NEUTROPHILS % (AUTO) 78.4 % (42-78); WHITE BLOOD COUNT 8.9 10^3/uL (4.0-10.5)
[2016-06-18 12:46] LABS: ANION GAP 10 (5-19); BLOOD UREA NITROGEN 23 mg/dL (7-20); CARBON DIOXIDE 25 mmol/L (22-30); CHLORIDE 109 mmol/L (98-107); GLUCOSE 122 mg/dL (75-110); POTASSIUM 4.2 mmol/L (3.6-5.0); SODIUM 144.2 mmol/L (137-145)
[2016-06-18] MEDS ORDERED: NORMAL SALINE 1000 ML 1,000 ML IV PRN (13:32)
--- NOTE | 2016-06-18 13:54 | PDOC PROGRESS REPORT ---
Subjective Progress Note for:: 06/18/16 Subjective:: diarrhea is still persistent profuse non bloody non mucousy patient states has no abdominal pain , tolerated meal well no fever or chills CT abdomen and pelvis suggests RtLL pneumonia and ileus/ gastroenteritis Physical Exam Vital Signs: Temp Pulse Resp BP Pulse Ox 97.8 F 107 H 18 150/89 H 100 06/18/16 12:00 06/18/16 12:00 06/18/16 12:00 06/18/16 12:00 06/18/16 12:00 Intake & Output 06/17/16 06/18/16 06/19/16 00:59 00:59 00:59 Intake Total 541 Output Total 1000 Balance -459 Weight 40.8 kg General appearance: PRESENT: no acute distress Head exam: PRESENT: atraumatic, normocephalic Eye exam: PRESENT: conjunctiva pink, EOMI, PERRLA. ABSENT: scleral icterus Mouth exam: PRESENT: moist, tongue midline Neck exam: ABSENT: carotid bruit, JVD, lymphadenopathy, thyromegaly Respiratory exam: PRESENT: clear to auscultation magdalena. ABSENT: rales, rhonchi, wheezes Cardiovascular exam: PRESENT: RRR. ABSENT: diastolic murmur, rubs, systolic murmur GI/Abdominal exam: PRESENT: normal bowel sounds, soft. ABSENT: distended, guarding, mass, organolmegaly, rebound, tenderness Neurological exam: PRESENT: alert, awake, oriented to person, oriented to place , oriented to time, oriented to situation, CN II-XII grossly intact. ABSENT: motor sensory deficit Results Laboratory Results: 06/18/16 12:05 06/18/16 12:05 06/18/16 06/18/16 06/18/16 09:20 12:05 12:05 WBC 8.9 RBC 3.89 Hgb 9.8 L Hct 32.0 L MCV 83 MCH 25.3 L MCHC 30.6 L RDW 22.3 H Plt Count 298 Seg Neutrophils % 78.4 H Lymphocytes % 11.1 L Monocytes % 9.8 Eosinophils % 0.3 Basophils % 0.4 Absolute Neutrophils 7.0 Absolute Lymphocytes 1.0 Absolute Monocytes 0.9 Absolute Eosinophils 0.0 Absolute Basophils 0.0 Sodium 144.2 Potassium 4.2 Chloride 109 H Carbon Dioxide 25 Anion Gap 10 BUN 23 H Creatinine 0.60 Est GFR ( Amer) > 60 Est GFR (Non-Af Amer) > 60 Glucose 122 H Calcium 8.0 L Stool Occult Blood POSITIVE EKG Comments: sinus tachycardia poor R wave progression Impressions: Chest X-Ray 06/17/16 13:52 IMPRESSION: Minimal basilar atelectasis noted on the left. Lung volumes remain small. Abdomen/Pelvis CT 06/18/16 11:23 IMPRESSION: 1. Nonspecific dilatation and air-fluid levels in the proximal colon without obstructing abnormality or inflammatory changes. This may represent ileus. 2. Small bilateral pleural effusions. 3. Increased density in the in lower lobe some of which is chronic although there is suggestion of superimposed active pneumonia. 4. Compression fracture at T8 which has occurred since prior CT dated Oct 28 2015. 5. Large hiatal hernia. 6. Status post cholecystectomy. Assessment & Plan - Diagnosis (1) Abdominal pain Qualifiers: Abdominal location: generalized Qualified Code(s): R10.84 - Generalized abdominal pain Is this a current diagnosis for this admission?: YesPlan: etiology unclear likely secondary to enterocolitis doubt ischemic bowel as pain is minimal c diff was negative , culture stools negative stools for occult blood positive decreased eliquis to 2.5 mg bid ; follow H/H continue cipro-flagyl (2) Diarrhea Qualifiers: Diarrhea type: presumed infectious Qualified Code(s): A09 - Infectious gastroenteritis and colitis, unspecified Is this a current diagnosis for this admission?: YesPlan: as above continue cipro flagyl avoid imodium (3) Bronchiectasis Qualifiers: Bronchiectasis type: uncomplicated Qualified Code(s): J47.9 - Bronchiectasis, uncomplicated Is this a current diagnosis for this admission?: Yes (4) History of pulmonary embolism Is this a current diagnosis for this admission?: YesPlan: continue eliquis if H/H drops will hold follow H/H (5) Rheumatoid arthritis Qualifiers: Rheumatoid factor presence: unspecified presence Laterality: unspecified laterality Is this a current diagnosis for this admission?: YesPlan: continue prednisone will increase dose for stress (6) Sepsis Qualifiers: Sepsis type: sepsis due to unspecified organism Qualified Code(s): A41.9 - Sepsis, unspecified organism Is this a current diagnosis for this admission?: YesPlan: secondary to pneumonia and gastroenteritis will switch Cipro to Levaquin continue IV fluids (7) DNR (do not resuscitate) Is this a current diagnosis for this admission?: Yes - Time Time Spent with patient: 25-34 minutes Within: within 72 hours - if improved
[2016-06-18] MEDS: APIXABAN 2.5 MG TABLET PO SCH (17:16)
[2016-06-18] MEDS ORDERED: FUROSEMIDE INJ/PF 20 MG/2 ML SDV IV ONE (17:36)
[2016-06-18] MEDS ORDERED: MIRTAZAPINE 15 MG TABLET PO SCH (22:00)
[2016-06-18] MEDS ORDERED: RISPERIDONE 1 MG TABLET PO SCH (22:00)
[2016-06-18] MEDS: LEVOFLOXACIN 500 MG/D5W RTU 500 MG/100 ML RTUPB IV SCH (22:23)
[2016-06-19] MEDS: METRONIDAZOLE 500 MG/NS RTU 100 ML IV SCH ×5 (00:53→23:20)
[2016-06-19] MEDS ORDERED: RISPERIDONE 0.25 MG TABLET ONE (02:08)
[2016-06-19 05:49] LABS: ABSOLUTE EOSINOPHILS # (AUTO) 0.1 10^3/uL (0.0-0.6); ABSOLUTE LYMPHOCYTES (AUTO) 1.3 10^3/uL (0.5-4.7); ABSOLUTE MONOCYTES (AUTO) 0.5 10^3/uL (0.1-1.4); ABSOLUTE NEUT (AUTO) 6.4 10^3/uL (1.7-8.2); BASOPHILS % (AUTO) 0.2 % (0-2); EOSINOPHILS % (AUTO) 1.6 % (0-6); HEMATOCRIT 28.2 % (36.0-47.0); HEMOGLOBIN 8.6 g/dL (12.0-15.5); HGB HCT DIFFERENCE -2.4; LYMPHOCYTES % (AUTO) 15.7 % (13-45); MEAN CORPUSCULAR HEMOGLOBIN 25.4 pg (27.0-33.4); MEAN CORPUSCULAR HGB CONC 30.6 g/dL (32.0-36.0); MEAN CORPUSCULAR VOLUME 83 fl (80-97); MONOCYTES % (AUTO) 6.3 % (3-13); RED BLOOD COUNT 3.39 10^6/uL (3.72-5.28); RED CELL DISTRIBUTION WIDTH 22.4 % (11.5-14.0); SEGMENTED NEUTROPHILS % (AUTO) 76.2 % (42-78); WHITE BLOOD COUNT 8.4 10^3/uL (4.0-10.5)
[2016-06-19 06:01] LABS: ANION GAP 10 (5-19); BLOOD UREA NITROGEN 15 mg/dL (7-20); CALCIUM 7.4 mg/dL (8.4-10.2); CARBON DIOXIDE 22 mmol/L (22-30); CHLORIDE 109 mmol/L (98-107); CREATININE RESULT 0.61 mg/dL (0.52-1.25); GLUCOSE 81 mg/dL (75-110); SODIUM 141.2 mmol/L (137-145)
[2016-06-19 06:09] LABS: POTASSIUM 3.1 mmol/L (3.6-5.0)
[2016-06-19] MEDS ORDERED: RISPERIDONE 0.25 MG TABLET PO SCH (08:00)
[2016-06-19] MEDS: CYANOCOBALAMIN (VITAMIN B-12) 1,000 MCG TABLET PO SCH (09:17)
[2016-06-19] MEDS: CHOLECALCIFEROL (D3) 1,000 UNIT TABLET PO SCH (09:17)
[2016-06-19] MEDS: APIXABAN 2.5 MG TABLET PO SCH ×2 (09:17→17:44)
[2016-06-19] MEDS: CALCIUM CARBONATE 250 MG/VITAMIN D3 125 UNIT TABLET PO SCH (09:17)
[2016-06-19] MEDS ORDERED: (PENDING PHARMACY ID) (Calcium Carbonate/Vitamin D3 [Calcium 600-Vit D3 400 Tablet] 1 EACH PO SCH (10:00)
[2016-06-19] MEDS ORDERED: (PENDING PHARMACY ID) (Cholecalciferol (Vitamin D3) [Vitamin D3] 2,000 UNIT) PO SCH (10:00)
[2016-06-19] MEDS ORDERED: POTASSIUM CHLORIDE 20 MEQ/15 ML UDCUP PO ONE (12:00)
[2016-06-19] MEDS ORDERED: LOPERAMIDE HCL 2 MG CAPSULE PO ONE (12:00)
[2016-06-19] MEDS ORDERED: METHYLPREDNISOLONE INJ 40 MG/1 ML SDV IV ONE (12:00)
--- NOTE | 2016-06-19 16:27 | PDOC PROGRESS REPORT ---
Subjective Progress Note for:: 06/19/16 Subjective:: feels better states swelling and pain Rt hand BP has been elevated HR still high 90-100 no fever or chills diarrhea still profuse and persistent Physical Exam Vital Signs: Temp Pulse Resp BP Pulse Ox 97.7 F 118 H 16 153/95 H 100 06/19/16 12:00 06/19/16 14:00 06/19/16 13:55 06/19/16 12:00 06/19/16 13:55 Intake & Output 06/18/16 06/19/16 06/20/16 00:59 00:59 00:59 Intake Total 2691 460 Output Total 2200 800 Balance 491 -340 Weight 40.8 kg 41.9 kg General appearance: PRESENT: mild distress, thin Head exam: PRESENT: atraumatic, normocephalic Eye exam: PRESENT: conjunctiva pink, EOMI, PERRLA. ABSENT: scleral icterus Neck exam: ABSENT: carotid bruit, JVD, lymphadenopathy, thyromegaly Respiratory exam: PRESENT: clear to auscultation magdalena. ABSENT: rales, rhonchi, wheezes Pulses: PRESENT: normal dorsalis pedis pul GI/Abdominal exam: PRESENT: normal bowel sounds, soft. ABSENT: distended, guarding, mass, organolmegaly, rebound, tenderness Extremities exam: PRESENT: other - left hand deformity MCP joints with subluxations swelling redness tenderness joints Neurological exam: PRESENT: alert, awake, oriented to person, oriented to place , oriented to time, oriented to situation, CN II-XII grossly intact. ABSENT: motor sensory deficit Skin exam: PRESENT: dry, intact, warm. ABSENT: cyanosis, rash Results Laboratory Results: 06/19/16 04:57 06/19/16 04:57 06/19/16 06/19/16 04:57 04:57 WBC 8.4 RBC 3.39 L Hgb 8.6 L Hct 28.2 L MCV 83 MCH 25.4 L MCHC 30.6 L RDW 22.4 H Plt Count 263 Seg Neutrophils % 76.2 Lymphocytes % 15.7 Monocytes % 6.3 Eosinophils % 1.6 Basophils % 0.2 Absolute Neutrophils 6.4 Absolute Lymphocytes 1.3 Absolute Monocytes 0.5 Absolute Eosinophils 0.1 Absolute Basophils 0.0 Sodium 141.2 Potassium 3.1 L D Chloride 109 H Carbon Dioxide 22 Anion Gap 10 BUN 15 Creatinine 0.61 Est GFR ( Amer) > 60 Est GFR (Non-Af Amer) > 60 Glucose 81 Calcium 7.4 L Impressions: Chest X-Ray 06/17/16 13:52 IMPRESSION: Minimal basilar atelectasis noted on the left. Lung volumes remain small. Abdomen/Pelvis CT 06/18/16 11:23 IMPRESSION: 1. Nonspecific dilatation and air-fluid levels in the proximal colon without obstructing abnormality or inflammatory changes. This may represent ileus. 2. Small bilateral pleural effusions. 3. Increased density in the in lower lobe some of which is chronic although there is suggestion of superimposed active pneumonia. 4. Compression fracture at T8 which has occurred since prior CT dated Oct 28 2015. 5. Large hiatal hernia. 6. Status post cholecystectomy. Assessment & Plan - Diagnosis (1) Abdominal pain Qualifiers: Abdominal location: generalized Qualified Code(s): R10.84 - Generalized abdominal pain Is this a current diagnosis for this admission?: Yes (2) Diarrhea Qualifiers: Diarrhea type: presumed infectious Qualified Code(s): A09 - Infectious gastroenteritis and colitis, unspecified Is this a current diagnosis for this admission?: YesPlan: cultures pending continue cipro and flagyl hydrate CT abdomen and pelvis was unremarkable (3) Bronchiectasis Qualifiers: Bronchiectasis type: uncomplicated Qualified Code(s): J47.9 - Bronchiectasis, uncomplicated Is this a current diagnosis for this admission?: Yes (4) History of pulmonary embolism Is this a current diagnosis for this admission?: Yes (5) Sepsis Qualifiers: Sepsis type: sepsis due to unspecified organism Qualified Code(s): A41.9 - Sepsis, unspecified organism Is this a current diagnosis for this admission?: Yes (6) DNR (do not resuscitate) Is this a current diagnosis for this admission?: Yes (7) Rheumatoid arthritis flare Is this a current diagnosis for this admission?: YesPlan: will initiate steroids IV (8) Hypertension Qualifiers: Hypertension type: essential hypertension Qualified Code(s): I10 - Essential (primary) hypertension Is this a current diagnosis for this admission?: YesPlan: treat with small doses metoprolol - Time Time Spent with patient: 25-34 minutes
[2016-06-19] MEDS: LACTOBACILLUS ACIDOPHILUS 250 MG TAB PO SCH (17:44)
[2016-06-19] MEDS: METOPROLOL TARTRATE 25 MG TABLET PO SCH (21:23)
[2016-06-19] MEDS: METHYLPREDNISOLONE INJ 40 MG/1 ML SDV IV SCH (21:24)
[2016-06-19] MEDS: LEVOFLOXACIN 500 MG/D5W RTU 500 MG/100 ML RTUPB IV SCH (21:24)
[2016-06-19] MEDS: NORMAL SALINE 1000 ML 1,000 ML IV PRN (21:25)
[2016-06-20] MEDS ORDERED: ALPRAZOLAM 0.25 MG TABLET PO ONE (00:29)
[2016-06-20] MEDS ORDERED: LORAZEPAM INJ 2 MG/1 ML VIAL IV ONE (04:15)
[2016-06-20] MEDS: METRONIDAZOLE 500 MG/NS RTU 100 ML IV SCH ×4 (05:25→23:56)
[2016-06-20 07:19] LABS: ANION GAP 10 (5-19); BLOOD UREA NITROGEN 15 mg/dL (7-20); CALCIUM 7.6 mg/dL (8.4-10.2); CARBON DIOXIDE 25 mmol/L (22-30); CHLORIDE 108 mmol/L (98-107); CREATININE RESULT 0.65 mg/dL (0.52-1.25); GLUCOSE 131 mg/dL (75-110); POTASSIUM 3.9 mmol/L (3.6-5.0); SODIUM 143.3 mmol/L (137-145)
[2016-06-20] MEDS: METHYLPREDNISOLONE INJ 40 MG/1 ML SDV IV SCH ×2 (10:18→22:01)
[2016-06-20] MEDS: LACTOBACILLUS ACIDOPHILUS 250 MG TAB PO SCH ×2 (15:30→18:50)
[2016-06-20] MEDS: METOPROLOL TARTRATE 25 MG TABLET PO SCH ×2 (15:30→22:02)
[2016-06-20] MEDS: APIXABAN 2.5 MG TABLET PO SCH ×2 (15:30→18:50)
[2016-06-20] MEDS: CYANOCOBALAMIN (VITAMIN B-12) 1,000 MCG TABLET PO SCH (16:58)
[2016-06-20] MEDS: CALCIUM CARBONATE 250 MG/VITAMIN D3 125 UNIT TABLET PO SCH (16:58)
[2016-06-20] MEDS: CHOLECALCIFEROL (D3) 1,000 UNIT TABLET PO SCH (16:58)
--- NOTE | 2016-06-20 19:06 | PDOC PROGRESS REPORT ---
Subjective Progress Note for:: 06/20/16 Subjective:: Patient was agitated last night and she was sedated with Ativan She's been extremely lethargic all day There is very much improvement of the left hand which is less swollen and painful Physical Exam Vital Signs: Temp Pulse Resp BP Pulse Ox 97.8 F 79 16 136/92 H 100 06/20/16 15:42 06/20/16 15:42 06/20/16 15:42 06/20/16 15:42 06/20/16 15:42 Intake & Output 06/19/16 06/20/16 06/21/16 00:59 00:59 00:59 Intake Total 2691 2247 2349 Output Total 2200 3400 1675 Balance 491 -1153 674 Weight 40.8 kg 41.9 kg 43.6 kg General appearance: PRESENT: no acute distress, thin Head exam: PRESENT: atraumatic, normocephalic Eye exam: PRESENT: conjunctiva pink, EOMI, PERRLA. ABSENT: scleral icterus Ear exam: PRESENT: normal external ear exam Mouth exam: PRESENT: moist, tongue midline Neck exam: ABSENT: carotid bruit, JVD, lymphadenopathy, thyromegaly Respiratory exam: PRESENT: clear to auscultation magdalena. ABSENT: rales, rhonchi, wheezes Cardiovascular exam: PRESENT: RRR. ABSENT: diastolic murmur, rubs, systolic murmur Pulses: PRESENT: normal dorsalis pedis pul Vascular exam: PRESENT: normal capillary refill GI/Abdominal exam: PRESENT: normal bowel sounds, soft. ABSENT: distended, guarding, mass, organolmegaly, rebound, tenderness Rectal exam: PRESENT: deferred Extremities exam: PRESENT: full ROM. ABSENT: calf tenderness, clubbing, pedal edema Neurological exam: PRESENT: other - Lethargic Skin exam: PRESENT: dry, intact, warm. ABSENT: cyanosis, rash Results Laboratory Results: 06/19/16 04:57 06/20/16 06:22 06/20/16 06:22 Sodium 143.3 Potassium 3.9 Chloride 108 H Carbon Dioxide 25 Anion Gap 10 BUN 15 Creatinine 0.65 Est GFR ( Amer) > 60 Est GFR (Non-Af Amer) > 60 Glucose 131 H Calcium 7.6 L Impressions: Chest X-Ray 06/17/16 13:52 IMPRESSION: Minimal basilar atelectasis noted on the left. Lung volumes remain small. Abdomen/Pelvis CT 06/18/16 11:23 IMPRESSION: 1. Nonspecific dilatation and air-fluid levels in the proximal colon without obstructing abnormality or inflammatory changes. This may represent ileus. 2. Small bilateral pleural effusions. 3. Increased density in the in lower lobe some of which is chronic although there is suggestion of superimposed active pneumonia. 4. Compression fracture at T8 which has occurred since prior CT dated Oct 28 2015. 5. Large hiatal hernia. 6. Status post cholecystectomy. Assessment & Plan - Diagnosis (1) Abdominal pain Qualifiers: Abdominal location: generalized Qualified Code(s): R10.84 - Generalized abdominal pain Is this a current diagnosis for this admission?: Yes (2) Diarrhea Qualifiers: Diarrhea type: presumed infectious Qualified Code(s): A09 - Infectious gastroenteritis and colitis, unspecified Is this a current diagnosis for this admission?: Yes (3) Bronchiectasis Qualifiers: Bronchiectasis type: uncomplicated Qualified Code(s): J47.9 - Bronchiectasis, uncomplicated Is this a current diagnosis for this admission?: Yes (4) History of pulmonary embolism Is this a current diagnosis for this admission?: Yes (5) Sepsis Qualifiers: Sepsis type: sepsis due to unspecified organism Qualified Code(s): A41.9 - Sepsis, unspecified organism Is this a current diagnosis for this admission?: Yes (6) DNR (do not resuscitate) Is this a current diagnosis for this admission?: Yes (7) Rheumatoid arthritis flare Is this a current diagnosis for this admission?: Yes (8) Hypertension Qualifiers: Hypertension type: essential hypertension Qualified Code(s): I10 - Essential (primary) hypertension Is this a current diagnosis for this admission?: Yes - Time Time Spent with patient: Patient is overall improved We will continue the present management Evaluate her tomorrow for possible discharge if her mentation per minutes Time Spent with patient: 25-34 minutes
[2016-06-20] MEDS ORDERED: HYDRALAZINE HCL INJ/PF 20 MG/1 ML SDV IV PRN ×2 (20:29→20:32)
[2016-06-20] MEDS ORDERED: RISPERIDONE 0.25 MG TABLET PO SCH (22:00)
[2016-06-20] MEDS: LEVOFLOXACIN 500 MG/D5W RTU 500 MG/100 ML RTUPB IV SCH (22:01)
[2016-06-21] MEDS: NORMAL SALINE 1000 ML 1,000 ML IV PRN (04:55)
[2016-06-21] MEDS: METRONIDAZOLE 500 MG/NS RTU 100 ML IV SCH ×3 (06:28→20:26)
[2016-06-21 08:53] LABS: ABSOLUTE LYMPHOCYTES (AUTO) 1.9 10^3/uL (0.5-4.7); ABSOLUTE MONOCYTES (AUTO) 0.7 10^3/uL (0.1-1.4); ABSOLUTE NEUT (AUTO) 5.8 10^3/uL (1.7-8.2); BASOPHILS % (AUTO) 0.2 % (0-2); HEMATOCRIT 31.9 % (36.0-47.0); HEMOGLOBIN 9.6 g/dL (12.0-15.5); HGB HCT DIFFERENCE -3.1; LYMPHOCYTES % (AUTO) 22.9 % (13-45); MEAN CORPUSCULAR HEMOGLOBIN 24.7 pg (27.0-33.4); MEAN CORPUSCULAR HGB CONC 30.1 g/dL (32.0-36.0); MEAN CORPUSCULAR VOLUME 82 fl (80-97); MONOCYTES % (AUTO) 7.9 % (3-13); RED BLOOD COUNT 3.89 10^6/uL (3.72-5.28); RED CELL DISTRIBUTION WIDTH 23.4 % (11.5-14.0); WHITE BLOOD COUNT 8.5 10^3/uL (4.0-10.5)
[2016-06-21 09:18] LABS: ANION GAP 12 (5-19); BLOOD UREA NITROGEN 16 mg/dL (7-20); CALCIUM 7.7 mg/dL (8.4-10.2); CARBON DIOXIDE 22 mmol/L (22-30); CHLORIDE 107 mmol/L (98-107); CREATININE RESULT 0.55 mg/dL (0.52-1.25); GLUCOSE 119 mg/dL (75-110); POTASSIUM 3.7 mmol/L (3.6-5.0); SODIUM 140.7 mmol/L (137-145)
[2016-06-21] MEDS: CYANOCOBALAMIN (VITAMIN B-12) 1,000 MCG TABLET PO SCH (09:47)
[2016-06-21] MEDS: CHOLECALCIFEROL (D3) 1,000 UNIT TABLET PO SCH (09:47)
[2016-06-21] MEDS: APIXABAN 2.5 MG TABLET PO SCH ×2 (09:47→18:01)
[2016-06-21] MEDS: CALCIUM CARBONATE 250 MG/VITAMIN D3 125 UNIT TABLET PO SCH (09:48)
[2016-06-21] MEDS: LACTOBACILLUS ACIDOPHILUS 250 MG TAB PO SCH ×2 (09:48→18:02)
[2016-06-21] MEDS: METOPROLOL TARTRATE 25 MG TABLET PO SCH (09:48)
[2016-06-21] MEDS: METHYLPREDNISOLONE INJ 40 MG/1 ML SDV IV SCH (09:48)
--- NOTE | 2016-06-21 10:20 | PDOC TRANSFER SUMMARY ---
General - Admit/Disc Date/PCP Admission Date/Primary Care Provider: 06/18/16 00:05 Dr Salvatore Flowers Discharge Date: 06/21/16 - Discharge Diagnosis (1) Abdominal pain Is this a current diagnosis for this admission?: YesSummary: Was likely secondary to gastroenteritis ;patient had profuse diarrhea during her stay CT abdomen and pelvis was unremarkable Stools were negative for C. difficile; cultures are still pending Patient was treated with Cipro and Flagyl, only one dose of Imodium was prescribed The diarrhea has almost completely resolved Patient is tolerating a diet and has no residual abdominal pain (2) Diarrhea Is this a current diagnosis for this admission?: YesSummary: Likely to be secondary to viral enteritis And is resolving We did hold Colace at discharge (3) Bronchiectasis Is this a current diagnosis for this admission?: YesSummary: Patient's pulmonary status remained stable during her stay (4) History of pulmonary embolism Is this a current diagnosis for this admission?: YesSummary: Continue Eliquis (5) Sepsis Is this a current diagnosis for this admission?: YesSummary: Secondary to gastroenteritis Has resolved (6) DNR (do not resuscitate) Is this a current diagnosis for this admission?: Yes (7) Rheumatoid arthritis flare Is this a current diagnosis for this admission?: YesSummary: Patient was treated with Solu-Medrol 20 mg twice a day She will resume prednisone 5 mg daily at discharge (8) Hypertension Is this a current diagnosis for this admission?: YesSummary: We added Toprol-XL 25 mg by mouth daily to her present medications - Additional Information Resuscitation Status: Do Not Resuscitate Discharge Diet: Regular Discharge Activity: Activity As Tolerated Home Medications: Atorvastatin Calcium [Lipitor 10 mg Tablet] 10 mg PO QHS 06/17/16 Calcium Carbonate/Vitamin D3 [Calcium 600-Vit D3 400 Tablet] 1 each PO DAILY Cholecalciferol (Vitamin D3) [Vitamin D3] 2,000 unit PO DAILY 06/17/16 Cyanocobalamin (Vitamin B-12) [Vitamin B-12 1000 mcg Tablet] 1,000 mcg PO DAILY 06/17/16 Duloxetine HCl [Cymbalta] 60 mg PO DAILY 06/17/16 Ipratropium/Albuterol Sulfate [Iprat-Albut 0.5-3(2.5) mg/3 ml] 3 ml NEB TID Omeprazole 20 mg PO DAILY 06/17/16 Potassium Chloride [Klor-Con 10 Meq Tablet.sa] 10 meq PO DAILY 06/17/16 Apixaban [Eliquis 2.5 mg Tablet] 2.5 mg PO BID #60 tablet 06/21/16 Furosemide [Lasix 20 mg Tablet] 20 mg PO Q48H #15 06/21/16 Lorazepam [Ativan 0.5 mg Tablet] 0.5 mg PO QHS PRN #30 06/21/16 Metoprolol Succinate [Toprol Xl 25 mg Tab.sr] 25 mg PO DAILY #30 tab.sr.24h Mirtazapine [Remeron] 15 mg PO QHS #30 06/21/16 Prednisone 5 mg PO DAILY #30 tablet 06/21/16 Risperidone [Risperdal 0.25 mg Tablet] 0.25 mg PO QHS #30 tablet 06/21/16 History of Present Illness Admission Date/PCP: 06/18/16 00:05 History of Present Illness: 86 yo female who resides at [facility]; patient was brought to the ED after she had an episode of abdominal pain ,diarrhea, and nausea Patient was found somewhat hypoxemic and tachycardic; she was brought to the ED for evaluation Patient has a known history of chronic bronchitis recurrent pneumonia and bronchiectasis;she is not O2 dependent Hospital Course Hospital Course: See above Physical Exam Vital Signs: Temp Pulse Resp BP Pulse Ox 97.5 F 87 16 153/97 H 100 06/21/16 07:46 06/21/16 07:46 06/21/16 07:46 06/21/16 07:46 06/21/16 07:46 Intake & Output 06/20/16 06/21/16 06/22/16 00:59 00:59 00:59 Intake Total 3236 2369 1164 Output Total 4867 5695 Balance -5757 236 4159 Weight 41.9 kg 43.6 kg 44.1 kg General appearance: PRESENT: no acute distress, well-developed, well-nourished Head exam: PRESENT: atraumatic, normocephalic Eye exam: PRESENT: conjunctiva pink, EOMI, PERRLA. ABSENT: scleral icterus Ear exam: PRESENT: normal external ear exam Mouth exam: PRESENT: moist, tongue midline Neck exam: ABSENT: carotid bruit, JVD, lymphadenopathy, thyromegaly Respiratory exam: PRESENT: clear to auscultation magdalena. ABSENT: rales, rhonchi, wheezes Cardiovascular exam: PRESENT: RRR. ABSENT: diastolic murmur, rubs, systolic murmur Pulses: PRESENT: normal dorsalis pedis pul Vascular exam: PRESENT: normal capillary refill GI/Abdominal exam: PRESENT: normal bowel sounds, soft. ABSENT: distended, guarding, mass, organolmegaly, rebound, tenderness Rectal exam: PRESENT: deferred Extremities exam: PRESENT: full ROM, other - Subluxation MCP joints both hands. ABSENT: calf tenderness, clubbing, pedal edema Neurological exam: PRESENT: alert, awake, oriented to person, oriented to place , oriented to time, oriented to situation, CN II-XII grossly intact. ABSENT: motor sensory deficit Psychiatric exam: PRESENT: appropriate affect, normal mood. ABSENT: homicidal ideation, suicidal ideation Skin exam: PRESENT: dry, intact, warm. ABSENT: cyanosis, rash Results Laboratory Results: 06/21/16 08:18 06/21/16 08:18 06/21/16 06/21/16 08:18 08:18 WBC 8.5 RBC 3.89 Hgb 9.6 L Hct 31.9 L MCV 82 MCH 24.7 L MCHC 30.1 L RDW 23.4 H Plt Count 301 Seg Neutrophils % 69.0 Lymphocytes % 22.9 Monocytes % 7.9 Eosinophils % 0.0 Basophils % 0.2 Absolute Neutrophils 5.8 Absolute Lymphocytes 1.9 Absolute Monocytes 0.7 Absolute Eosinophils 0.0 Absolute Basophils 0.0 Sodium 140.7 Potassium 3.7 Chloride 107 Carbon Dioxide 22 Anion Gap 12 BUN 16 Creatinine 0.55 Est GFR ( Amer) > 60 Est GFR (Non-Af Amer) > 60 Glucose 119 H Calcium 7.7 L 06/17/16 06/17/16 14:23 19:00 Lactic Acid 3.8 H 3.0 H 06/19/16 00:22 - Preliminary Stool - Stool 06/17/16 19:00 Blood Culture - Preliminary Blood NO GROWTH AFTER 72 HOURS 06/17/16 15:25 Urine Culture - Final [place] Catheter NO GROWTH 2 DAYS 06/17/16 14:23 Blood Culture - Preliminary Blood NO GROWTH AFTER 72 HOURS Impressions: Chest X-Ray 06/17/16 13:52 IMPRESSION: Minimal basilar atelectasis noted on the left. Lung volumes remain small. Abdomen/Pelvis CT 06/18/16 11:23 IMPRESSION: 1. Nonspecific dilatation and air-fluid levels in the proximal colon without obstructing abnormality or inflammatory changes. This may represent ileus. 2. Small bilateral pleural effusions. 3. Increased density in the in lower lobe some of which is chronic although there is suggestion of superimposed active pneumonia. 4. Compression fracture at T8 which has occurred since prior CT dated Oct 28 2015. 5. Large hiatal hernia. 6. Status post cholecystectomy. Transfer Plan - Disposition Transfer Plan: Patient will be transferred back to [facility] Follow-up with Dr. Flowers in a week Resume PT at facility - Time Spent with Patient Time spent with patient: Greater than 30 Minutes
[2016-06-21 17:09] VITALS: BP 158/84
[2016-06-21] MEDS ORDERED: LEVOFLOXACIN 250 MG/D5W RTU 250 MG/50 ML RTUPB IV SCH (22:00)
[2016-06-22] MEDS ORDERED: METOPROLOL SUCCINATE 25 MG TAB.SR.24H PO SCH (10:00)
== END 2016-06-21 20:30 | DRG 872 ==
LOC: ER 13:49 → EH 16:18 → UNDOADMIN 16:18 → EH 06-18 00:01 → 4S 06-18 00:01
PROVIDERS: ADMIT Family Medicine; ATTEND Family Medicine
DX: A41.9 Sepsis, unspecified organism (principal); F03.91 Unspecified dementia, unspecified severity, with behavioral disturbance; A08.4 Viral intestinal infection, unspecified; J47.9 Bronchiectasis, uncomplicated; M06.9 Rheumatoid arthritis, unspecified; I10 Essential (primary) hypertension; K44.9 Diaphragmatic hernia without obstruction or gangrene; E78.5 Hyperlipidemia, unspecified; F32.9 Major depressive disorder, single episode, unspecified; Z66 Do not resuscitate; Z86.711 Personal history of pulmonary embolism; Z79.899 Other long term (current) drug therapy; Z90.49 Acquired absence of other specified parts of digestive tract; Z96.653 Presence of artificial knee joint, bilateral; Z90.710 Acquired absence of both cervix and uterus; Z82.49 Family history of ischemic heart disease and other diseases of the circulatory system; Z88.6 Allergy status to analgesic agent; Z88.8 Allergy status to other drugs, medicaments and biological substances
CPT/HCPCS: 36415; 51702; 71010; 74176; 80048; 80053; 81001; 82272; 82803; 83605; 85025; 85610; 87040; 87045; 87077; 87086; 87205; 87493; 93005; 93010; 94640; 96360; 99291; G8978-GP; G8979-GP; J0360; J0696; J0744; J1940; J1956; J2060; J2920; J3490; J7030; J7620

== ENCOUNTER 2016-10-07 03:04 | Inpatient (IN) | payer MEDICARE, OTHER ==
[2016-10-07] MEDS ORDERED: NITROGLYCERIN 2% OINTMENT 1 GM PACKET TP ONE (03:30)
--- NOTE | 2016-10-07 03:34 | ER Document Report ---
ED General - General Chief Complaint: Shortness Of Breath Stated Complaint: DIFFICULTY BREATHING Time Seen by Provider: 10/07/16 03:23 Notes: Patient is an 86-year-old female who presents with complaints of difficulty breathing. She sent in from the senior care. Difficulty breathing probably started last night. Became worse this morning. She has a history of recurrent MRSA pneumonia. She plans of pain into her left arm and shoulder. She says feels very short of breath. She denies fevers. No other complaints at this time. No abdominal pain. She is on Eliquis due to a history of pulmonary emboli. TRAVEL OUTSIDE OF THE [place] IN LAST 30 DAYS: No - Related Data Allergies/Adverse Reactions: aspirin Allergy (Verified 06/17/16 18:22) ibuprofen [From Motrin] Allergy (Verified 06/17/16 18:22) naproxen Allergy (Verified 06/17/16 18:22) Past Medical History - Social History Smoking Status: Unknown if Ever Smoked Frequency of alcohol use: None Drug Abuse: None Family History: Hypertension - Past Medical History Cardiac Medical History: Reports: Hx Hypercholesterolemia, Hx Hypertension Denies: Hx Heart Attack Pulmonary Medical History: Reports: Hx Bronchitis - bronchiectasis, Hx COPD, Hx Pneumonia Denies: Hx Asthma Neurological Medical History: Denies: Hx Cerebrovascular Accident, Hx Seizures Renal/ Medical History: Denies: Hx Peritoneal Dialysis GI Medical History: Denies: Hx Hepatitis, Hx Hiatal Hernia, Hx Ulcer Musculoskeltal Medical History: Reports Hx Arthritis - rheumatoid Psychiatric Medical History: Reports: Hx Depression Infectious Medical History: Denies: Hx Hepatitis Past Surgical History: Reports: Hx Cholecystectomy, Hx Hysterectomy, Hx Orthopedic Surgery - bilat knee replacement, rotator cuff sx, lamenectomy. Denies: Hx Mastectomy, Hx Open Heart Surgery, Hx Pacemaker - Immunizations Immunizations up to date: Yes Hx Diphtheria, Pertussis, Tetanus Vaccination: Yes Hx Pneumococcal Vaccination: 05/30/10 Review of Systems - Review of Systems Notes: My Normal Review Basic REVIEW OF SYSTEMS: CONSTITUTIONAL : Denies fever, chills, or sweats. Denies recent illness. EENT: Denies eye, ear, throat, or mouth pain or symptoms. Denies nasal or sinus congestion. CARDIOVASCULAR: Denies chest pain. Pain into left shoulder and arm. RESPIRATORY: Difficulty breathing. GASTROINTESTINAL: Denies abdominal pain. Denies nausea, vomiting, or diarrhea. Denies constipation. Last BM: MUSCULOSKELETAL: Denies neck or back pain or joint pain or swelling. SKIN: Denies rash or skin lesions. HEMATOLOGIC : On Eliquis NEUROLOGICAL: Denies altered mental status or loss of consciousness. Denies headache. Denies weakness or paralysis or loss of use of either side. Denies problems with gait or speech. Denies sensory or motor loss. ALL OTHER SYSTEMS REVIEWED AND NEGATIVE. Physical Exam - Vital signs Vitals: Resp Pulse Ox 26 H 99 10/07/16 03:45 10/07/16 03:45 - Notes Notes: General Appearance: Well nourished, alert, cooperative, moderate acute distress , no obvious discomfort. Vitals: reviewed, See vital signs table. Head: no swelling or tenderness to the head Eyes: PERRL, EOMI, Conjuctiva clear Mouth: No decreasd moisture Throat: No tonsillar inflammation, No airway obstruction, No lymphadenopathy Neck: Supple, no neck tenderness, No thyromegaly Lungs: No wheezing, diffuse rales, No rhonci, moderate accessory muscle use, fair air exchange bilaterally. Heart: Tachycardic rate, Regular rythm, No murmur, no rub Abdomen: Normal BS, soft, No rigidity, No abdominal tenderness, No guarding, no rebound, no abdominal masses, no organomegaly Extremities: strength 5/5 in all extremities, good pulses in all extremities, no swelling or tenderness in the extremities, no edema. Skin: warm, dry, appropriate color, no rash Neuro: speech clear, oriented x 3, normal affect, responds appropriately to questions. Course - Re-evaluation Re-evalutation: 10/07/16 03:33 After reviewing EKG area medially went to the patient's to talk to her about the findings and the about the fact that she is probably having a heart attack. Patient is verbal and able to speak with me. She does request I speak with her daughter who is power of attorney at law. I did speak with the patient's daughter , Zara Farrar. She says she will be coming in to ER to see her. I did review her with her the options of cardiac catheterization versus medical management. At this time she does not want invasive procedures such as cardiac catheter. Patient is 86 years old and or he has multiple comorbidities. I agree that a cardiac catheter will probably not add much to her quality of life in the long run. I will place patient on nitroglycerin. She's allergic to aspirin. I'll wait for labs return to make sure she is not significantly anemic before giving her Lovenox. 10/07/16 03:50 I was able to get back in touch with the patient's daughter. Her allergy to aspirin was that in the past she took too much and it causes her to bleed. She does not have a true allergic reaction to it. We will give her aspirin. Patient is also on Eliquis therefore we will hold on Lovenox for now until I can speak with the electrodynamicist. 10/07/16 04:37 Looking through the patient's previous records she is a DO NOT RESUSCITATE according to her most recent discharge summary. I did go and speak with the daughter who is power of attorney at law. Daughter says she's actually not a DO NOT RESUSCITATE. She says that she is a full code; however, they would only want CPR or intubation if it was felt that this would prolong her life with expect return of similar quality of life. The daughter said if she was intubated and she was not showing signs of immediate improvement than they would most likely take her off the ventilator. I have paged Dr. Mederos and am awaiting a reply. 10/07/16 04:42 - Vital Signs Vital signs: Temp Pulse Resp BP Pulse Ox 26 H 99 10/07/16 03:45 10/07/16 03:45 - Laboratory Result Diagrams: 10/07/16 03:44 10/07/16 03:44 Laboratory results interpreted by me: 10/07/16 10/07/16 10/07/16 03:44 03:44 03:44 WBC 23.4 H Hgb 8.8 L Hct 29.9 L MCV 71 L MCH 20.9 L MCHC 29.3 L RDW 18.1 H Plt Count 489 H Seg Neuts % (Manual) 89 H Lymphocytes % (Manual) 8 L Abs Neuts (Manual) 20.8 H Sodium 130.5 L Chloride 92 L BUN 30 H Glucose 188 H Lactic Acid AST 103 H Creatine Kinase 775 H CK-MB (CK-2) 99.50 H 10/07/16 03:44 WBC Hgb Hct MCV MCH MCHC RDW Plt Count Seg Neuts % (Manual) Lymphocytes % (Manual) Abs Neuts (Manual) Sodium Chloride BUN Glucose Lactic Acid 3.5 H AST Creatine Kinase CK-MB (CK-2) - EKG Interpretation by Me Additional EKG results interpreted by me: 10/07/16 03:32 EKG is reviewed and interpreted by me. EKG shows sinus tachycardia with a rate of 103 bpm. She does have some slight ST segment elevation in leads V5 and V6 with reciprocal depression in leads V1 and V2 and V3. All these are changes comparison to her previous EKG from 06/17/2016. This does suggest that she most likely is having a ST elevation MO. OK interval, QRS duration, QTC intervals are within normal range. - Transfer of Care Notes: 10/07/16 05:54 Appropriately so the family did not want some the patient's to a Center for cardiac catheterization. Patient has multiple comorbidities is already in fairly poor health and is at the age of 86. Patient is being treated symptomatically with nitroglycerin. She's been given aspirin. She is are on I would request. Lovenox. Given. I did not hear back from Dr. Mederos about any further recommendations. I did speak with the hospitalist who agrees with the patient further acute treatment and care. Dictation of this chart was performed using voice recognition software; therefore, there may be some unintended grammatical errors. Critical Care Note - Critical Care Note Total time excluding time spent on procedures (mins): 45 Comments: Critical care time spent with this patient not including time spent on procedures approximately 45 minutes which includes frequent re-evaluations, treatment of her wrist were distress, discussion with family about treatment for STEMI.
[2016-10-07] MEDS ORDERED: ASPIRIN 300 MG SUPP, RECTAL PR ONE (03:50)
[2016-10-07] MEDS ORDERED: ASPIRIN 325 MG TABLET PO ONE (03:51)
[2016-10-07 04:04] LABS: HEMATOCRIT 29.9 % (36.0-47.0); HEMOGLOBIN 8.8 g/dL (12.0-15.5); HGB HCT DIFFERENCE -3.5; MEAN CORPUSCULAR HEMOGLOBIN 20.9 pg (27.0-33.4); MEAN CORPUSCULAR HGB CONC 29.3 g/dL (32.0-36.0); MEAN CORPUSCULAR VOLUME 71 fl (80-97); RED BLOOD COUNT 4.19 10^6/uL (3.72-5.28); RED CELL DISTRIBUTION WIDTH 18.1 % (11.5-14.0); WHITE BLOOD COUNT 23.4 10^3/uL (4.0-10.5)
[2016-10-07 04:19] LABS: ALANINE AMINOTRANSFERASE 37 U/L (9-52); ALKALINE PHOSPHATASE 91 U/L (38-126); ANION GAP 14 (5-19); ASPARTATE AMINO TRANSFERASE 103 U/L (14-36); BILIRUBIN,DIRECT 0.4 mg/dL (0.0-0.4); BILIRUBIN,TOTAL 1.2 mg/dL (0.2-1.3); BLOOD UREA NITROGEN 30 mg/dL (7-20); CALCIUM 9.8 mg/dL (8.4-10.2); CARBON DIOXIDE 25 mmol/L (22-30); CHLORIDE 92 mmol/L (98-107); CREATINE KINASE 775 U/L (30-135); CREATININE RESULT 0.77 mg/dL (0.52-1.25); GLUCOSE 188 mg/dL (75-110); POTASSIUM 4.9 mmol/L (3.6-5.0); SODIUM 130.5 mmol/L (137-145); TOTAL PROTEIN 7.3 g/dL (6.3-8.2)
[2016-10-07 04:31] LABS: CREATINE KINASE MB 99.5 ng/mL (<4.55)
[2016-10-07 04:32] LABS: BASOPHILS % (MANUAL) 0 % (0-2); EOSINOPHILS % (MANUAL) 0 % (0-6); LYMPHOCYTES % (MANUAL) 8 % (13-45); TOTAL CELLS COUNTED 100
[2016-10-07] MEDS ORDERED: VANCOMYCIN HCL INJ 1000 MG VIAL IV ONE (04:33)
[2016-10-07 04:36] LABS: ANISOCYTOSIS 1+; OVALOCYTES SLIGHT; POLYCHROMASIA SLIGHT; TROPONIN I 6.26 ng/mL
[2016-10-07] MEDS ORDERED: LORAZEPAM INJ 2 MG/1 ML VIAL IV PRN (05:37)
[2016-10-07] MEDS ORDERED: MORPHINE SULFATE 10 MG/ML INJ IV PRN (05:37)
--- NOTE | 2016-10-07 05:59 | PDOC H&P ---
History of Present Illness Patient complains of: Shortness of breath History of Present Illness: GRACIELA WHITFIELD is a 86 year old female with a past medical history of bronchiectasis, recurrent pneumonia, recurrent urinary tract infection, anemia of chronic disease, rheumatoid arthritis, deafness and dementia. Who is a patient of the memory unit at [facility] who was noted by family to have 24 hours of shortness of breath and exceptional anxiety as well as pain to the shoulders and arms bilaterally and brought to the emergency room for evaluation where she's found to have a ST elevation [place] and acute respiratory failure. Patient's daughter power of civil attorney is at bedside verifying no invasive management and DO NOT RESUSCITATE. She is initially placed on BiPAP but struggling to remove it, daughter agrees with reduction of aggressive measures 100% oxygen by face mask. Patient is unable to provide history as she is oriented 1 only. Past Medical History Cardiac Medical History: Reports: Hyperlipidema, Hypertension Denies: Myocardial Infarction Pulmonary Medical History: Reports: Bronchitis - bronchiectasis, Chronic Obstructive Pulmonary Disease (COPD), Pneumonia Denies: Asthma Neurological Medical History: Denies: Seizures GI Medical History: Denies: Hepatitis, Hiatal Hernia Musculoskeltal Medical History: Reports: Arthritis - rheumatoid Psychiatric Medical History: Reports: Dementia, Depression Hematology: Reports: Anemia Denies: Sickle Cell Disease Past Surgical History Past Surgical History: Reports: Cholecystectomy, Hysterectomy, Orthopedic Surgery - bilat knee replacement, rotator cuff sx, lamenectomy Denies: Amputation, Mastectomy, Pacemaker Social History Information Source: Relative, Emergency Med Personnel, [facility] Records Lives with: Retirement Smoking Status: Unknown if Ever Smoked Frequency of Alcohol Use: None Hx Recreational Drug Use: No Drugs: None Hx Prescription Drug Abuse: No - Advance Directive Resuscitation Status: Do Not Resuscitate Family History Family History: Hypertension Parental Family History Reviewed: Yes Children Family History Reviewed: Yes Sibling(s) Family History Reviewed.: Yes Medication/Allergy Home Medications: Atorvastatin Calcium [Lipitor 10 mg Tablet] 10 mg PO QHS 06/17/16 Calcium Carbonate/Vitamin D3 [Calcium 600-Vit D3 400 Tablet] 1 each PO DAILY Cholecalciferol (Vitamin D3) [Vitamin D3] 2,000 unit PO DAILY 06/17/16 Cyanocobalamin (Vitamin B-12) [Vitamin B-12 1000 mcg Tablet] 1,000 mcg PO DAILY 06/17/16 Duloxetine HCl [Cymbalta] 60 mg PO DAILY 06/17/16 Ipratropium/Albuterol Sulfate [Iprat-Albut 0.5-3(2.5) mg/3 ml] 3 ml NEB TID Omeprazole 20 mg PO DAILY 06/17/16 Potassium Chloride [Klor-Con 10 Meq Tablet.sa] 10 meq PO DAILY 06/17/16 Apixaban [Eliquis 2.5 mg Tablet] 2.5 mg PO BID #60 tablet 06/21/16 Furosemide [Lasix 20 mg Tablet] 20 mg PO Q48H #15 06/21/16 Lorazepam [Ativan 0.5 mg Tablet] 0.5 mg PO QHS PRN #30 06/21/16 Metoprolol Succinate [Toprol Xl 25 mg Tab.sr] 25 mg PO DAILY #30 tab.sr.24h Mirtazapine [Remeron] 15 mg PO QHS #30 06/21/16 Prednisone 5 mg PO DAILY #30 tablet 06/21/16 Risperidone [Risperdal 0.25 mg Tablet] 0.25 mg PO QHS #30 tablet 06/21/16 Allergies/Adverse Reactions: aspirin Allergy (Verified 06/17/16 18:22) ibuprofen [From Motrin] Allergy (Verified 06/17/16 18:22) naproxen Allergy (Verified 06/17/16 18:22) Review of Systems ROS unobtainable: Due to mental status - Secondary to dementia Physical Exam Vital Signs: Temp Pulse Resp BP Pulse Ox 26 H 99 10/07/16 03:45 10/07/16 03:45 General appearance: PRESENT: disheveled, severe distress, other - Restless and uncomfortable Head exam: PRESENT: atraumatic, normocephalic Eye exam: PRESENT: conjunctiva pink, EOMI, PERRLA. ABSENT: scleral icterus Ear exam: PRESENT: normal external ear exam Mouth exam: PRESENT: dry mucosa, tongue midline Neck exam: ABSENT: carotid bruit, JVD, lymphadenopathy, thyromegaly Respiratory exam: PRESENT: accessory muscle use, crackles, prolonged expiratory phas, rales, retraction, rhonchi, symmetrical, tachypnea Cardiovascular exam: PRESENT: gallop, RRR, systolic murmur, tachycardia Pulses: PRESENT: normal dorsalis pedis pul Vascular exam: PRESENT: normal capillary refill GI/Abdominal exam: PRESENT: distended, hypoactive bowel sounds, normal bowel sounds, soft. ABSENT: guarding, mass, organolmegaly, rebound, tenderness Rectal exam: PRESENT: deferred Extremities exam: PRESENT: full ROM, +1 edema. ABSENT: calf tenderness, clubbing, pedal edema Neurological exam: PRESENT: altered, awake, oriented to person, CN II-XII grossly intact. ABSENT: oriented to place, oriented to time, oriented to situation, abnormal gait Psychiatric exam: PRESENT: agitated Skin exam: PRESENT: dry, intact, warm. ABSENT: cyanosis, rash Results Laboratory Results: 10/07/16 03:44 10/07/16 03:44 10/07/16 10/07/16 10/07/16 03:44 03:44 03:44 WBC 23.4 H RBC 4.19 Hgb 8.8 L Hct 29.9 L MCV 71 L MCH 20.9 L MCHC 29.3 L RDW 18.1 H Plt Count 489 H Seg Neutrophils % Not Reportable Lymphocytes % Not Reportable Monocytes % Not Reportable Eosinophils % Not Reportable Basophils % Not Reportable Absolute Neutrophils Not Reportable Absolute Lymphocytes Not Reportable Absolute Monocytes Not Reportable Absolute Eosinophils Not Reportable Absolute Basophils Not Reportable Sodium 130.5 L Potassium 4.9 Chloride 92 L Carbon Dioxide 25 Anion Gap 14 BUN 30 H Creatinine 0.77 Est GFR ( Amer) > 60 Est GFR (Non-Af Amer) > 60 Glucose 188 H Lactic Acid 3.5 H Calcium 9.8 Total Bilirubin 1.2 AST 103 H ALT 37 Alkaline Phosphatase 91 Total Protein 7.3 Albumin 4.0 10/07/16 10/07/16 03:44 03:44 Creatine Kinase 775 H CK-MB (CK-2) 99.50 H Troponin I 6.260 Impressions: Chest X-Ray 10/07/16 03:31 IMPRESSION: Stable. Chronic interstitial lung disease pattern. Assessment & Plan - Diagnosis (1) ST elevation [place] (STEMI) Is this a current diagnosis for this admission?: YesPlan: Symptoms began yesterday, not a candidate for invasive intervention, conservative management with aspirin, beta columba, nitroglycerin, oxygen and symptomatic management. Follow-up cardiac enzymes, If patient worsens strongly suggest comfort measures only given patient's debility and comorbidity (2) Acute and chronic respiratory failure Is this a current diagnosis for this admission?: YesPlan: Complicated by bronchiectasis and acute ST elevation [place]. Supportive measures with supplemental oxygen, Xopenex and Atrovent. Consider follow-up chest x-ray and arterial blood gas (3) MRSA pneumonia Is this a current diagnosis for this admission?: YesPlan: MRSA pneumonia by history marketed leukocytosis, blood cultures pending empiric vancomycin and pneumonia care set (4) Dementia Is this a current diagnosis for this admission?: YesPlan: Resporal, Remeron, Ativan and morphine when necessary (5) Anemia of chronic disease Is this a current diagnosis for this admission?: YesPlan: Consider blood transfusion when necessary hemoglobin less than 8 (6) DNR (do not resuscitate) Is this a current diagnosis for this admission?: YesPlan: Strongly consider comfort measures if biochemical or biophysical deterioration (8) Rheumatoid arthritis Qualifiers: Rheumatoid factor presence: unspecified presence Laterality: unspecified laterality Is this a current diagnosis for this admission?: YesPlan: Steroid dependent prednisone dose doubled - Time Time Spent: 50 to 70 Minutes - Inpatient Certification Medical Necessity: Need Close Monitoring Due to Risk of Patient Decompensation
[2016-10-07] MEDS ORDERED: ACETAMINOPHEN 325 MG TABLET PO PRN (06:02)
[2016-10-07] MEDS ORDERED: GUAIFENESIN SYRP 200 MG/10 ML UDC PO PRN (06:02)
[2016-10-07] MEDS ORDERED: METOPROLOL TARTRATE PF/INJ 5 MG/5 ML SDV IV ONE (06:15)
[2016-10-07] MEDS ORDERED: ATORVASTATIN CALCIUM 10 MG TABLET PO ONE (06:15)
[2016-10-07] MEDS ORDERED: LEVOFLOXACIN 500 MG/D5W RTU 500 MG/100 ML RTUPB IV ONE (07:00)
[2016-10-07] MEDS: IPRATROPIUM/ALBUTEROL 0.5-2.5 MG/3 ML AMPUL NEB SCH ×3 (07:52→20:31)
[2016-10-07 07:56] LABS: APPEARANCE,URINE CLEAR; BILIRUBIN,URINE NEGATIVE (NEGATIVE); GLUCOSE, URINE 50 mg/dL (NEGATIVE); KETONES,URINE NEGATIVE (NEGATIVE); LEUKOCYTE ESTERASE,URINE NEGATIVE (NEGATIVE); NITRITE,URINE NEGATIVE (NEGATIVE); PROTEIN,URINE NEGATIVE (NEGATIVE); URINE SPECIFIC GRAVITY 1.015; UROBILINOGEN,URINE NEGATIVE mg/dL (<2.0)
[2016-10-07 09:10] LABS: TROPONIN I 35.2 ng/mL
[2016-10-07] MEDS: APIXABAN 2.5 MG TABLET PO SCH ×2 (09:46→22:22)
[2016-10-07] MEDS: METOPROLOL SUCCINATE 25 MG TAB.SR.24H PO SCH (09:47)
[2016-10-07] MEDS: LORAZEPAM INJ 2 MG/1 ML VIAL IV PRN ×2 (09:47→15:57)
[2016-10-07] MEDS ORDERED: PREDNISONE 5 MG TABLET PO SCH (10:00)
[2016-10-07] MEDS ORDERED: DOCUSATE SODIUM 100 MG CAPSULE PO PRN (10:50)
[2016-10-07] MEDS ORDERED: LORAZEPAM 0.5 MG TABLET PO PRN (10:50)
[2016-10-07] MEDS ORDERED: DULOXETINE HCL 30 MG CAPSULE.DR PO ONE (11:15)
[2016-10-07] MEDS ORDERED: CHOLECALCIFEROL (D3) 1,000 UNIT TABLET PO ONE (11:15)
--- NOTE | 2016-10-07 13:31 | PDOC PROGRESS REPORT ---
Subjective Progress Note for:: 10/07/16 Subjective:: Patient denies any chest pain at this time. Physical Exam Vital Signs: Temp Pulse Resp BP Pulse Ox 98.3 F 100 28 H 127/82 H 100 10/07/16 11:05 10/07/16 11:05 10/07/16 11:05 10/07/16 11:05 10/07/16 11:05 Intake & Output 10/06/16 10/07/16 10/08/16 06:59 06:59 06:59 Intake Total 236 Balance 236 Weight 47.4 kg General appearance: PRESENT: mild distress Eye exam: PRESENT: conjunctiva pink, EOMI, PERRLA. ABSENT: scleral icterus Mouth exam: PRESENT: moist, tongue midline Neck exam: ABSENT: JVD Respiratory exam: PRESENT: rales - Bilateral rails basilar. ABSENT: rhonchi, wheezes Cardiovascular exam: PRESENT: RRR. ABSENT: diastolic murmur, rubs, systolic murmur GI/Abdominal exam: PRESENT: normal bowel sounds, soft. ABSENT: distended, guarding, mass, organolmegaly, rebound, tenderness Extremities exam: ABSENT: calf tenderness, clubbing, pedal edema Neurological exam: PRESENT: awake, oriented to person, oriented to place, CN II- XII grossly intact, motor sensory deficit. ABSENT: oriented to time, oriented to situation Psychiatric exam: PRESENT: appropriate affect Skin exam: PRESENT: dry, intact, warm. ABSENT: cyanosis, rash Results Laboratory Results: 10/07/16 10/07/16 06:55 07:58 Lactic Acid 1.6 Urine Color YELLOW Urine Appearance CLEAR Urine pH 6.0 Ur Specific [place] 1.015 Urine Protein NEGATIVE Urine Glucose (UA) 50 H Urine Ketones NEGATIVE Urine Blood NEGATIVE Urine Nitrite NEGATIVE Ur Leukocyte Esterase NEGATIVE Urine WBC (Auto) 0 Urine RBC (Auto) 1 10/07/16 10/07/16 07:58 07:58 Creatine Kinase 1819 H CK-MB (CK-2) 224.00 H Troponin I 35.200 Impressions: Chest X-Ray 10/07/16 03:31 IMPRESSION: Stable. Chronic interstitial lung disease pattern. Assessment & Plan - Diagnosis (1) Acute and chronic respiratory failure Is this a current diagnosis for this admission?: YesPlan: Secondary to pneumonia and acute STEMI. (2) Pneumonia Qualifiers: Pneumonia type: due to unspecified organism Laterality: bilateral Lung location: lower lobe of lung Qualified Code(s): J18.9 - Pneumonia, unspecified organism Is this a current diagnosis for this admission?: YesPlan: Patient is being treated for MRSA pneumonia as well as Pseudomonas pneumonia with Levaquin. Will consult pulmonary medicine for their opinion. (3) ST elevation [place] (STEMI) Is this a current diagnosis for this admission?: YesPlan: Patient already is on Eliquis for anticoagulation. We'll continue with aspirin. (4) Anemia of chronic disease Is this a current diagnosis for this admission?: Yes (5) Dementia Is this a current diagnosis for this admission?: YesPlan: Patient is slightly confused but pleasant. (6) Acute encephalopathy Is this a current diagnosis for this admission?: YesPlan: Secondary to the acute illness. (7) COPD exacerbation Is this a current diagnosis for this admission?: Yes (8) DNR (do not resuscitate) Is this a current diagnosis for this admission?: Yes (9) Dementia Qualifiers: Dementia type: unspecified type Dementia behavioral disturbance: with behavioral disturbance Qualified Code(s): F03.91 - Unspecified dementia with behavioral disturbance; F10.97 - Alcohol use, unspecified with alcohol- induced persisting dementia Is this a current diagnosis for this admission?: Yes (10) GERD (gastroesophageal reflux disease) Qualifiers: Esophagitis presence: esophagitis presence not specified Qualified Code(s): K21.9 - Gastro-esophageal reflux disease without esophagitis Is this a current diagnosis for this admission?: Yes (11) History of pulmonary embolism Is this a current diagnosis for this admission?: YesPlan: Patient is on Eliquis. (12) Hyperlipidemia Is this a current diagnosis for this admission?: Yes (13) Hypertension Qualifiers: Hypertension type: essential hypertension Qualified Code(s): I10 - Essential (primary) hypertension Is this a current diagnosis for this admission?: Yes (14) Rheumatoid arthritis Qualifiers: Rheumatoid factor presence: unspecified presence Laterality: unspecified laterality Is this a current diagnosis for this admission?: Yes (15) Sepsis Qualifiers: Sepsis type: sepsis due to unspecified organism Qualified Code(s): A41.9 - Sepsis, unspecified organism Is this a current diagnosis for this admission?: YesPlan: Secondary to pneumonia. - Time Time Spent with patient: 25-34 minutes - Inpatient Certification Medical Necessity: Need for IV Antibiotics - Plan Summary Plan Summary: Discussed with the family and they do not want cardiac catheterization or further cardiac intervention.
--- NOTE | 2016-10-07 13:54 | EKG REPORT ---
SEVERITY:- ABNORMAL ECG - SINUS TACHYCARDIA LOW VOLTAGE IN FRONTAL LEADS BORDERLINE ST DEPRESSION, ANTERIOR LEADS BORDERLINE ST ELEVATION, CONSIDER LATERAL INJURY : Confirmed by: Ramon Michel 07-Oct-2016 13:53:56
[2016-10-07] MEDS ORDERED: IPRATROPIUM/ALBUTEROL 0.5-2.5 MG/3 ML AMPUL NEB SCH (14:00)
[2016-10-07 14:52] LABS: TROPONIN I 89.7 ng/mL
[2016-10-07 21:11] LABS: TROPONIN I 92.4 ng/mL
[2016-10-07] MEDS ORDERED: ATORVASTATIN CALCIUM 10 MG TABLET PO SCH (22:00)
[2016-10-07] MEDS ORDERED: APIXABAN 2.5 MG TABLET PO SCH (22:00)
[2016-10-07] MEDS: ATORVASTATIN CALCIUM 10 MG TABLET PO SCH (22:22)
[2016-10-08] MEDS: IPRATROPIUM/ALBUTEROL 0.5-2.5 MG/3 ML AMPUL NEB SCH ×4 (01:54→19:40)
[2016-10-08] MEDS: RISPERIDONE 0.25 MG TABLET PO SCH ×2 (02:03→22:14)
[2016-10-08] MEDS: MIRTAZAPINE 15 MG TABLET PO SCH ×2 (02:03→22:14)
[2016-10-08 04:48] LABS: ABSOLUTE BASOPHILS # (AUTO) 0.1 10^3/uL (0.0-0.2); ABSOLUTE LYMPHOCYTES (AUTO) 1.7 10^3/uL (0.5-4.7); ABSOLUTE MONOCYTES (AUTO) 1.8 10^3/uL (0.1-1.4); ABSOLUTE NEUT (AUTO) 11.5 10^3/uL (1.7-8.2); BASOPHILS % (AUTO) 0.6 % (0-2); EOSINOPHILS % (AUTO) 0.1 % (0-6); HEMATOCRIT 25.6 % (36.0-47.0); HGB HCT DIFFERENCE -2.2; MEAN CORPUSCULAR HEMOGLOBIN 21.2 pg (27.0-33.4); MEAN CORPUSCULAR HGB CONC 30.6 g/dL (32.0-36.0); MEAN CORPUSCULAR VOLUME 69 fl (80-97); MONOCYTES % (AUTO) 12.2 % (3-13); RED CELL DISTRIBUTION WIDTH 18.8 % (11.5-14.0); SEGMENTED NEUTROPHILS % (AUTO) 76.1 % (42-78); WHITE BLOOD COUNT 15.2 10^3/uL (4.0-10.5)
[2016-10-08 04:58] LABS: HEMOGLOBIN 7.8 g/dL (12.0-15.5)
[2016-10-08 04:59] LABS: ANION GAP 10 (5-19); BLOOD UREA NITROGEN 25 mg/dL (7-20); CALCIUM 9.9 mg/dL (8.4-10.2); CARBON DIOXIDE 27 mmol/L (22-30); CHLORIDE 95 mmol/L (98-107); CREATININE RESULT 0.79 mg/dL (0.52-1.25); GLUCOSE 150 mg/dL (75-110); POTASSIUM 4.7 mmol/L (3.6-5.0); SODIUM 131.8 mmol/L (137-145)
[2016-10-08] MEDS: LANSOPRAZOLE 15 MG TAB.RAP.DR PO SCH (05:53)
[2016-10-08] MEDS: LORAZEPAM INJ 2 MG/1 ML VIAL IV PRN (08:57)
[2016-10-08] MEDS ORDERED: (PENDING PHARMACY ID) (Calcium Carbonate/Vitamin D3 [Calcium 600-Vit D3 400 Tablet] 1 EACH PO SCH (10:00)
[2016-10-08] MEDS ORDERED: METOPROLOL SUCCINATE 25 MG TAB.SR.24H PO SCH (10:00)
[2016-10-08] MEDS ORDERED: (PENDING PHARMACY ID) (Cholecalciferol (Vitamin D3) [Vitamin D3 2000 Unit Tablet] 2,000 UN PO SCH (10:00)
--- NOTE | 2016-10-08 10:31 | PDOC PROGRESS REPORT ---
Subjective Progress Note for:: 10/08/16 Subjective:: She received some Ativan prior to me examining the patient and was nonverbal. Physical Exam Vital Signs: Temp Pulse Resp BP Pulse Ox 99.0 F 140 H 30 H 119/79 96 10/08/16 07:38 10/08/16 08:29 10/08/16 08:29 10/08/16 07:38 10/08/16 08:29 Intake & Output 10/07/16 10/08/16 10/09/16 06:59 06:59 06:59 Intake Total 422 Output Total 500 300 Balance -78 -300 Weight 49 kg General appearance: PRESENT: mild distress Eye exam: PRESENT: conjunctiva pink. ABSENT: scleral icterus Mouth exam: PRESENT: moist, tongue midline Neck exam: PRESENT: JVD Respiratory exam: PRESENT: rhonchi - Coarse rhonchi bilaterally.. ABSENT: rales , wheezes Cardiovascular exam: PRESENT: RRR. ABSENT: diastolic murmur, rubs, systolic murmur GI/Abdominal exam: PRESENT: normal bowel sounds, soft. ABSENT: distended, guarding, mass, organolmegaly, rebound, tenderness Extremities exam: ABSENT: calf tenderness, clubbing, pedal edema Neurological exam: PRESENT: altered Psychiatric exam: PRESENT: other - Unable to assess Skin exam: PRESENT: dry, intact, warm. ABSENT: cyanosis, rash Results Laboratory Results: 10/08/16 03:44 10/08/16 03:44 10/08/16 10/08/16 03:44 03:44 WBC 15.2 H RBC 3.70 L Hgb 7.8 L Hct 25.6 L MCV 69 L MCH 21.2 L MCHC 30.6 L RDW 18.8 H Plt Count 368 Seg Neutrophils % 76.1 Lymphocytes % 11.0 L Monocytes % 12.2 Eosinophils % 0.1 Basophils % 0.6 Absolute Neutrophils 11.5 H Absolute Lymphocytes 1.7 Absolute Monocytes 1.8 H Absolute Eosinophils 0.0 Absolute Basophils 0.1 Sodium 131.8 L Potassium 4.7 Chloride 95 L Carbon Dioxide 27 Anion Gap 10 BUN 25 H Creatinine 0.79 Est GFR ( Amer) > 60 Est GFR (Non-Af Amer) > 60 Glucose 150 H Calcium 9.9 10/07/16 10/07/16 10/07/16 07:58 07:58 13:45 Creatine Kinase 1819 H 2416 H CK-MB (CK-2) 224.00 H Troponin I 35.200 10/07/16 10/07/16 10/07/16 13:45 20:02 20:02 Creatine Kinase 1851 H CK-MB (CK-2) 281.00 H 168.00 H Troponin I 89.700 92.400 Impressions: Chest X-Ray 10/07/16 03:31 IMPRESSION: Stable. Chronic interstitial lung disease pattern. Assessment & Plan - Diagnosis (1) Acute and chronic respiratory failure Is this a current diagnosis for this admission?: YesPlan: Secondary to pneumonia and acute STEMI. Patient currently is requiring BiPAP. (2) Pneumonia Qualifiers: Pneumonia type: due to unspecified organism Laterality: bilateral Lung location: lower lobe of lung Qualified Code(s): J18.9 - Pneumonia, unspecified organism Is this a current diagnosis for this admission?: YesPlan: Patient is being treated for MRSA pneumonia as well as Pseudomonas pneumonia with Levaquin. (3) ST elevation [place] (STEMI) Is this a current diagnosis for this admission?: YesPlan: Patient already is on Eliquis for anticoagulation. We'll continue with aspirin. The patient's family is considering comfort care. (4) Anemia of chronic disease Is this a current diagnosis for this admission?: Yes (5) Dementia Is this a current diagnosis for this admission?: Yes (6) Acute encephalopathy Is this a current diagnosis for this admission?: YesPlan: Secondary to the acute illness. (7) COPD exacerbation Is this a current diagnosis for this admission?: Yes (8) DNR (do not resuscitate) Is this a current diagnosis for this admission?: YesPlan: Patient is still a DO NOT RESUSCITATE. The patient's family discussing whether or not to make her comfort care. (9) GERD (gastroesophageal reflux disease) Qualifiers: Esophagitis presence: esophagitis presence not specified Qualified Code(s): K21.9 - Gastro-esophageal reflux disease without esophagitis Is this a current diagnosis for this admission?: Yes (10) History of pulmonary embolism Is this a current diagnosis for this admission?: YesPlan: Patient is on Eliquis. (11) Hyperlipidemia Is this a current diagnosis for this admission?: Yes (12) Hypertension Qualifiers: Hypertension type: essential hypertension Qualified Code(s): I10 - Essential (primary) hypertension Is this a current diagnosis for this admission?: Yes (13) Rheumatoid arthritis Qualifiers: Rheumatoid factor presence: unspecified presence Laterality: unspecified laterality Is this a current diagnosis for this admission?: Yes (14) Sepsis Qualifiers: Sepsis type: sepsis due to unspecified organism Qualified Code(s): A41.9 - Sepsis, unspecified organism Is this a current diagnosis for this admission?: YesPlan: Secondary to pneumonia. Continue with Levaquin. - Time Time Spent with patient: 25-34 minutes - Inpatient Certification Medical Necessity: Need Close Monitoring Due to Risk of Patient Decompensation, Need for IV Antibiotics
[2016-10-08] MEDS ORDERED: MORPHINE SULFATE 10 MG/ML INJ IV PRN (11:06)
[2016-10-08] MEDS: DULOXETINE HCL 30 MG CAPSULE.DR PO SCH (11:20)
[2016-10-08] MEDS: FUROSEMIDE 20 MG TABLET PO SCH (11:20)
[2016-10-08] MEDS: MORPHINE SULFATE 10 MG/ML INJ IV PRN (11:20)
[2016-10-08] MEDS: CYANOCOBALAMIN (VITAMIN B-12) 1,000 MCG TABLET PO SCH (11:20)
[2016-10-08] MEDS: CHOLECALCIFEROL (D3) 1,000 UNIT TABLET PO SCH (11:20)
[2016-10-08] MEDS: LEVOFLOXACIN 500 MG/D5W RTU 500 MG/100 ML RTUPB IV SCH (11:20)
[2016-10-08] MEDS: APIXABAN 2.5 MG TABLET PO SCH ×2 (11:20→18:31)
[2016-10-08] MEDS: METOPROLOL SUCCINATE 25 MG TAB.SR.24H PO SCH (11:20)
[2016-10-08] MEDS: PREDNISONE 10 MG TABLET PO SCH (11:20)
--- NOTE | 2016-10-08 13:45 | EKG REPORT ---
SEVERITY:- OTHERWISE NORMAL ECG - SINUS RHYTHM BORDERLINE LEFT AXIS DEVIATION LOW VOLTAGE IN FRONTAL LEADS : Confirmed by: Ramon Michel 08-Oct-2016 13:44:24
[2016-10-08] MEDS: ATORVASTATIN CALCIUM 10 MG TABLET PO SCH (22:14)
[2016-10-09] MEDS: IPRATROPIUM/ALBUTEROL 0.5-2.5 MG/3 ML AMPUL NEB SCH ×4 (02:03→19:43)
[2016-10-09] MEDS: LORAZEPAM INJ 2 MG/1 ML VIAL IV PRN ×2 (03:18→06:48)
[2016-10-09] MEDS: LANSOPRAZOLE 15 MG TAB.RAP.DR PO SCH (06:22)
[2016-10-09 07:55] VITALS: BP 121/72
[2016-10-09] MEDS: LEVOFLOXACIN 500 MG/D5W RTU 500 MG/100 ML RTUPB IV SCH (09:11)
[2016-10-09] MEDS: CYANOCOBALAMIN (VITAMIN B-12) 1,000 MCG TABLET PO SCH (09:11)
[2016-10-09] MEDS: FUROSEMIDE 20 MG TABLET PO SCH (09:11)
[2016-10-09] MEDS: PREDNISONE 10 MG TABLET PO SCH (09:11)
[2016-10-09] MEDS: CHOLECALCIFEROL (D3) 1,000 UNIT TABLET PO SCH (09:11)
[2016-10-09] MEDS: METOPROLOL SUCCINATE 25 MG TAB.SR.24H PO SCH (09:11)
[2016-10-09] MEDS: APIXABAN 2.5 MG TABLET PO SCH (09:11)
[2016-10-09] MEDS: DULOXETINE HCL 30 MG CAPSULE.DR PO SCH (09:11)
--- NOTE | 2016-10-09 09:37 | PDOC CONSULTATION ---
Consultation Consult Date: 10/08/16 Attending physician:: RENATO DENISE Consult reason:: dyspnea History of Present Illness Admission Date/PCP: 10/07/16 06:02 History of Present Illness: GRACIELA WHITFIELD is a 86 year old female with a past medical history of bronchiectasis, recurrent pneumonia, recurrent urinary tract infection, anemia of chronic disease, rheumatoid arthritis, deafness and dementia. Who is a patient of the memory unit at [facility] who was noted by family to have 24 hours of shortness of breath and exceptional anxiety as well as pain to the shoulders and arms bilaterally and brought to the emergency room for evaluation where she's found to have a ST elevation [place] and acute respiratory failure. Patient's daughter power of salesperson terrazzo tiles is at bedside verifying no invasive management and DO NOT RESUSCITATE. She is initially placed on BiPAP but struggling to remove it, daughter agrees with reduction of aggressive measures 100% oxygen by face mask. Patient is unable to provide history as she is oriented 1 only.She has a 40 py hx no smoking last 35 yrs.No hemoptysis Patient is followed in my office for above noted pulmonary co morbidities. Past Medical History Cardiac Medical History: Reports: Hyperlipidema, Hypertension Denies: Myocardial Infarction Pulmonary Medical History: Reports: Bronchitis - bronchiectasis, Chronic Obstructive Pulmonary Disease (COPD), Pneumonia Denies: Asthma Neurological Medical History: Denies: Seizures GI Medical History: Denies: Hepatitis, Hiatal Hernia Musculoskeltal Medical History: Reports: Arthritis - rheumatoid Psychiatric Medical History: Reports: Dementia, Depression Hematology: Reports: Anemia Denies: Sickle Cell Disease Past Surgical History Past Surgical History: Reports: Cholecystectomy, Hysterectomy, Orthopedic Surgery - bilat knee replacement, rotator cuff sx, lamenectomy Denies: Amputation, Mastectomy, Pacemaker Social History Lives with: [facility] Smoking Status: Former Smoker Cigarettes Packs Per Day: 1 Last Time Smoked: 1939 Passive smoke exposure as: Both Frequency of Alcohol Use: None Hx Recreational Drug Use: No Drugs: None Hx Prescription Drug Abuse: No - Advance Directive Resuscitation Status: Do Not Resuscitate Family History Family History: Hypertension Parental Family History Reviewed: Yes Children Family History Reviewed: Yes Sibling(s) Family History Reviewed.: Yes Medication/Allergy Home Medications: Apixaban [Eliquis 2.5 mg Tablet] 2.5 mg PO Q12 10/07/16 Atorvastatin Calcium [Lipitor 10 mg Tablet] 10 mg PO QHS 10/07/16 Benzonatate [Tessalon Perles 100 mg Capsule] 100 mg PO Q8HP PRN 10/07/16 Calcium Carbonate/Vitamin D3 [Calcium 600 + Vit D 400 Tablet] 1 each PO DAILY Cholecalciferol (Vitamin D3) [Vitamin D3 2000 unit Tablet] 2,000 unit PO DAILY 10/07/16 Cyanocobalamin (Vitamin B-12) [Vitamin B-12 1000 Mcg Tablet] 1 tab PO DAILY 04/15 Docusate Sodium [Colace 100 mg Capsule] 100 mg PO Q12HP PRN 10/07/16 Duloxetine HCl [Cymbalta] 60 mg PO DAILY 10/07/16 Furosemide [Lasix] 20 mg PO DAILY 10/07/16 Guaifenesin [Mucinex] 600 mg PO Q12HP PRN 10/07/16 Ipratropium/Albuterol Sulfate [Duoneb 3 ml Ampul] 3 ml NEB RTTID 10/07/16 Lorazepam [Ativan 0.5 mg Tablet] 0.5 mg PO DAILYP PRN 10/07/16 Metoprolol Succinate [Toprol Xl 25 mg Tab.sr] 25 mg PO DAILY 10/07/16 Mirtazapine [Remeron 15 mg Tablet] 15 mg PO QHS 10/07/16 Omeprazole 20 mg PO Q6AM 10/07/16 Potassium Chloride [K-Tab] 10 meq PO DAILY 10/07/16 Prednisone 5 mg PO DAILY 10/07/16 Risperidone [Risperdal 0.25 Mg Tablet] 0.25 mg PO QHS 10/07/16 Allergies/Adverse Reactions: aspirin Allergy (Verified 06/17/16 18:22) ibuprofen [From Motrin] Allergy (Verified 06/17/16 18:22) naproxen Allergy (Verified 06/17/16 18:22) Review of Systems ROS unobtainable: Due to mental status Physical Exam Vital Signs: Temp Pulse Resp BP Pulse Ox 99.0 F 140 H 30 H 119/79 96 10/08/16 07:38 10/08/16 08:29 10/08/16 08:29 10/08/16 07:38 10/08/16 08:29 Intake & Output 10/07/16 10/08/16 10/09/16 06:59 06:59 06:59 Intake Total 422 Output Total 500 300 Balance -78 -300 Weight 49 kg General appearance: PRESENT: disheveled, mild distress, thin, well-developed Head exam: PRESENT: atraumatic, normocephalic Eye exam: PRESENT: conjunctiva pale Mouth exam: PRESENT: moist, neck supple Neck exam: ABSENT: carotid bruit, JVD, lymphadenopathy, thyromegaly Respiratory exam: PRESENT: decreased breath sounds, prolonged expiratory phas, rales, rhonchi - coarse diffuse, symmetrical, wheezes Cardiovascular exam: PRESENT: RRR, +S1, +S2 Pulses: PRESENT: normal radial pulses GI/Abdominal exam: PRESENT: normal bowel sounds, soft. ABSENT: distended, guarding, mass, organolmegaly, rebound, tenderness Rectal exam: PRESENT: deferred Gentrourinary exam: PRESENT: indwelling catheter Musculoskeletal exam: PRESENT: normal inspection Skin exam: PRESENT: dry, warm Results Laboratory Results: 10/08/16 03:44 10/08/16 03:44 10/08/16 10/08/16 03:44 03:44 WBC 15.2 H RBC 3.70 L Hgb 7.8 L Hct 25.6 L MCV 69 L MCH 21.2 L MCHC 30.6 L RDW 18.8 H Plt Count 368 Seg Neutrophils % 76.1 Lymphocytes % 11.0 L Monocytes % 12.2 Eosinophils % 0.1 Basophils % 0.6 Absolute Neutrophils 11.5 H Absolute Lymphocytes 1.7 Absolute Monocytes 1.8 H Absolute Eosinophils 0.0 Absolute Basophils 0.1 Sodium 131.8 L Potassium 4.7 Chloride 95 L Carbon Dioxide 27 Anion Gap 10 BUN 25 H Creatinine 0.79 Est GFR ( Amer) > 60 Est GFR (Non-Af Amer) > 60 Glucose 150 H Calcium 9.9 10/07/16 10/07/16 10/07/16 07:58 07:58 13:45 Creatine Kinase 1819 H 2416 H CK-MB (CK-2) 224.00 H Troponin I 35.200 10/07/16 10/07/16 10/07/16 13:45 20:02 20:02 Creatine Kinase 1851 H CK-MB (CK-2) 281.00 H 168.00 H Troponin I 89.700 92.400 Impressions: Chest X-Ray 10/07/16 03:31 IMPRESSION: Stable. Chronic interstitial lung disease pattern. Assessment & Plan - Diagnosis (1) Acute and chronic respiratory failure Is this a current diagnosis for this admission?: YesPlan: poor prognosis (2) Dementia Is this a current diagnosis for this admission?: Yes (3) Bronchiectasis Qualifiers: Bronchiectasis type: uncomplicated Qualified Code(s): J47.9 - Bronchiectasis, uncomplicated Is this a current diagnosis for this admission?: Yes (4) COPD exacerbation Is this a current diagnosis for this admission?: Yes (5) DNR (do not resuscitate) Is this a current diagnosis for this admission?: YesPlan: consider comfort care
--- NOTE | 2016-10-09 09:56 | PDOC PROGRESS REPORT ---
Subjective Progress Note for:: 10/09/16 Subjective:: She is unresponsive. Physical Exam Vital Signs: Temp Pulse Resp BP Pulse Ox 97.6 F 124 H 24 H 121/72 100 10/09/16 07:26 10/09/16 07:26 10/09/16 07:26 10/09/16 07:26 10/09/16 07:26 Intake & Output 10/08/16 10/09/16 10/10/16 06:59 06:59 06:59 Intake Total 422 0 Output Total 500 700 Balance -78 -700 Weight 49 kg General appearance: PRESENT: mild distress Eye exam: PRESENT: conjunctiva pink. ABSENT: scleral icterus Mouth exam: PRESENT: moist, tongue midline Neck exam: PRESENT: JVD Respiratory exam: PRESENT: rhonchi - Coarse rhonchi bilaterally.. ABSENT: rales , wheezes Cardiovascular exam: PRESENT: RRR. ABSENT: diastolic murmur, rubs, systolic murmur GI/Abdominal exam: PRESENT: normal bowel sounds, soft. ABSENT: distended, guarding, mass, organolmegaly, rebound, tenderness Extremities exam: ABSENT: calf tenderness, clubbing, pedal edema Neurological exam: PRESENT: other - Moves to painful stimuli only Skin exam: PRESENT: dry, intact, warm. ABSENT: cyanosis, rash Results Laboratory Results: 10/08/16 03:44 10/08/16 03:44 10/07/16 10:15 Nasophary (Mrsa Only) MRSA Surveillance Culture - Final MRSA RECOVERED 10/07/16 10/07/16 10/07/16 07:58 07:58 13:45 Creatine Kinase 1819 H 2416 H CK-MB (CK-2) 224.00 H Troponin I 35.200 10/07/16 10/07/16 10/07/16 13:45 20:02 20:02 Creatine Kinase 1851 H CK-MB (CK-2) 281.00 H 168.00 H Troponin I 89.700 92.400 Impressions: Chest X-Ray 10/07/16 03:31 IMPRESSION: Stable. Chronic interstitial lung disease pattern. Assessment & Plan - Diagnosis (1) Acute and chronic respiratory failure Is this a current diagnosis for this admission?: YesPlan: Secondary to pneumonia and acute STEMI. Patient is currently comfort care. (2) Pneumonia Qualifiers: Pneumonia type: due to unspecified organism Laterality: bilateral Lung location: lower lobe of lung Qualified Code(s): J18.9 - Pneumonia, unspecified organism Is this a current diagnosis for this admission?: YesPlan: Patient was being treated for MRSA pneumonia as well as Pseudomonas pneumonia with Levaquin but is now comfort care. (3) ST elevation [place] (STEMI) Is this a current diagnosis for this admission?: YesPlan: Family yesterday made her comfort care. This morning the daughter who is the power of sports attorney wants her to be seen by sales representative groceries to make certain that this is the right decision. (4) Anemia of chronic disease Is this a current diagnosis for this admission?: Yes (5) Dementia Is this a current diagnosis for this admission?: YesPlan: Patient is unresponsive today. (6) Acute encephalopathy Is this a current diagnosis for this admission?: YesPlan: Secondary to the acute illness. (7) COPD exacerbation Is this a current diagnosis for this admission?: Yes (8) DNR (do not resuscitate) Is this a current diagnosis for this admission?: YesPlan: Patient is still a DO NOT RESUSCITATE. Yesterday the patient was made a comfort care. (9) GERD (gastroesophageal reflux disease) Qualifiers: Esophagitis presence: esophagitis presence not specified Qualified Code(s): K21.9 - Gastro-esophageal reflux disease without esophagitis Is this a current diagnosis for this admission?: Yes (10) History of pulmonary embolism Is this a current diagnosis for this admission?: YesPlan: Patient was on Eliquis. (11) Hyperlipidemia Is this a current diagnosis for this admission?: Yes (12) Hypertension Qualifiers: Hypertension type: essential hypertension Qualified Code(s): I10 - Essential (primary) hypertension Is this a current diagnosis for this admission?: Yes (13) Rheumatoid arthritis Qualifiers: Rheumatoid factor presence: unspecified presence Laterality: unspecified laterality Is this a current diagnosis for this admission?: Yes (14) Sepsis Qualifiers: Sepsis type: sepsis due to unspecified organism Qualified Code(s): A41.9 - Sepsis, unspecified organism Is this a current diagnosis for this admission?: YesPlan: Secondary to pneumonia. She is comfort care. - Time Time Spent with patient: 25-34 minutes - Inpatient Certification Medical Necessity: Need Close Monitoring Due to Risk of Patient Decompensation - Plan Summary Plan Summary: Patient currently is comfort care. They want her evaluated by cardiology. We' ll continue with comfort care unless the family changes their mind.
[2016-10-09] MEDS: MORPHINE SULFATE 10 MG/ML INJ IV PRN (11:33)
--- NOTE | 2016-10-09 14:09 | PDOC PROGRESS REPORT ---
Subjective Progress Note for:: 10/09/16 Subjective:: resting comfortably on nasal canula Physical Exam Vital Signs: Temp Pulse Resp BP Pulse Ox 97.6 F 124 H 24 H 121/72 100 10/09/16 07:26 10/09/16 07:26 10/09/16 07:26 10/09/16 07:26 10/09/16 07:26 Intake & Output 10/08/16 10/09/16 10/10/16 06:59 06:59 06:59 Intake Total 422 0 Output Total 500 700 200 Balance -78 -700 -200 Weight 49 kg General appearance: PRESENT: no acute distress, disheveled, thin, well-developed Head exam: PRESENT: atraumatic, normocephalic Eye exam: PRESENT: conjunctiva pale Mouth exam: PRESENT: dry mucosa Neck exam: ABSENT: carotid bruit, JVD, lymphadenopathy, thyromegaly Extremities exam: PRESENT: +1 edema Neurological exam: PRESENT: other - exstensive talk with family reassured them comfort care was / is a reasonable course to follow Skin exam: PRESENT: dry, warm Results Laboratory Results: 10/08/16 03:44 10/08/16 03:44 10/07/16 10:15 Nasophary (Mrsa Only) MRSA Surveillance Culture - Final MRSA RECOVERED 10/07/16 10/07/16 10/07/16 07:58 07:58 13:45 Creatine Kinase 1819 H 2416 H CK-MB (CK-2) 224.00 H Troponin I 35.200 10/07/16 10/07/16 10/07/16 13:45 20:02 20:02 Creatine Kinase 1851 H CK-MB (CK-2) 281.00 H 168.00 H Troponin I 89.700 92.400 Impressions: Chest X-Ray 10/07/16 03:31 IMPRESSION: Stable. Chronic interstitial lung disease pattern. Assessment & Plan - Diagnosis (1) Acute and chronic respiratory failure Is this a current diagnosis for this admission?: Yes (2) Dementia Is this a current diagnosis for this admission?: Yes (3) Bronchiectasis Qualifiers: Bronchiectasis type: uncomplicated Qualified Code(s): J47.9 - Bronchiectasis, uncomplicated Is this a current diagnosis for this admission?: Yes (4) COPD exacerbation Is this a current diagnosis for this admission?: Yes (5) DNR (do not resuscitate) Is this a current diagnosis for this admission?: Yes (6) ST elevation [place] (STEMI) Is this a current diagnosis for this admission?: Yes
--- NOTE | 2016-10-09 19:53 | PROGRESS NOTE E ---
Progress Note NAME: GRACIELA WHITFIELD : 1930 AGE: 86Y DATE: 10/09/2016 ROOM: 303 ADVANCED CARE PLANNING: This is advanced care planning with the patient's daughter, who is the [id number], and with all the family members who are quite a few in number. Note that the patient is at present a DNR and comfort measures. The questions asked of me is if the patient could have any other alternative therapeutic options which would make the patient better. Diagnoses are ST-elevation [place], acute on chronic respiratory failure, atrial fibrillation with rapid ventricular response, advanced dementia, bronchiectasis, a history of pulmonary embolism in the past, history of hypertension. Note was the patient's family including the daughter, who is the sgjep-[id number], spent from 12:00 noon the 12:30 p.m. discussing the patient's advanced care planning. Note we are dealing with an 86-year-old patient with advanced dementia with multiple medical serious problems as mentioned earlier. Note the question is asked if the patient can have any more aggressive treatment. First of all, the patient, in view of her dementia and confusion, would not cooperate with a cardiac catheterization. Also, the patient would be at high risk for complications of cardiac catheterization, since not only can she not follow post-catheterization instructions, but also in view of her advanced age there is high risk for stroke, [place], vascular trauma, bleeding, and also contrast-induced nephropathy. Also the patient is not a candidate for coronary artery bypass graft surgery, and hence the patient is not a candidate for percutaneous intervention. The patient is not even a candidate for "mercy percutaneous intervention" since the patient, in view of advanced dementia and agitation and confusion, we do not know that the patient has chest pain. Also these procedures would not change the patient's quality of life. Also, if a lesion is found, mere angioplasty may not be the right way to do it since the restenosis rate will be very high, and if a stent is placed, in view of the patient's advanced dementia, she may not take her dual antiplatelets, and hence there would be further risk of an acute stent thrombosis and . These have been discussed with the patient's daughter and the patient's relatives in detail. The discussions went on for about half an hour and all questions were answered. I agreed with Dr. *------* and the patient's daughter, who has the ondsv-bz-buzaffyu, who has made the decision of making the patient a DNR and giving comfort measures only. I have convinced all the family, and they are now agreeable. Note 30 minutes were spent on this advanced care planning. DICTATING PHYSICIAN: HENRY RODRIGUES M.D. [id number] PHY#: [id number] ID: [id number] JOB#: [id number] ACCT: [id number] cc:HENRY RODRIGUES M.D. >
--- NOTE | 2016-10-09 23:24 | CONSULTATION REPORT E ---
Consultation Report NAME: GRACIELA WHITFIELD : 1930 AGE: 86Y DATE: 10/09/2016 303 A TO: HENRY RODRIGUES M.D. FROM: JON BECKER M.D. Requesting Physician REASON FOR CONSULTATION: The patient, who has been made DNR on comfort measures, has requested the attending physician to have a Cardiology opinion on this patient by the [id number], who is the patient's daughter to see if there are any alternative or therapeutic options available for this patient. HISTORY OF PRESENT ILLNESS: The patient is an 86-year-old female with history of severe dementia, history of past pulmonary embolism, bronchiectasis, recurrent pneumonia, recurrent urinary tract infection, rheumatoid arthritis, and deafness, who was in [facility], noted by the family to have a 24-hour period of increasing shortness of breath, exceptional anxiety, as well as confusion and pain in both the shoulders bilaterally and brought to the emergency room. It is said that she was found to have borderline ST-segment elevation in the lateral leads and borderline ST-segment elevation in the inferior leads and was diagnosed as having ST-elevation WI and was treated. The patient's daughter, who is the ibnfr-eq-bkdmzvva, states that the patient is a DNR, and although the patient initially was placed on BiPAP, the patient was trying to remove it, and the daughter agreed to reduction in the aggressive measures, and the patient was placed on oxygen by mask. She subsequently made the patient comfort measures, but her other family members have questioned to seek a Cardiology opinion to see if there are any alternative therapeutic options for this patient. PAST MEDICAL HISTORY: As mentioned earlier is positive for: 1. Hypertension. 2. Hyperlipidemia. 3. There is no prior history of WI. 4. She also has a history of bronchiectasis, bronchitis, COPD, and recurrent pneumonia. 5. She also has severe dementia and depression and rheumatoid arthritis. 6. She also has a history of anemia. PAST SURGICAL HISTORY: Positive for: 1. Cholecystectomy. 2. Hysterectomy. 3. Orthopedic surgery. 4. Bilateral knee replacement. 5. Rotator cuff surgery. 6. Laminectomy. SOCIAL HISTORY: States that the patient is not a smoker. There is no history of EtOH abuse. ADVANCED DIRECTIVES: The patient is a DNR. The daughter is the ondpn-hl-bknnrtmt and now has made her comfort measures. FAMILY HISTORY: Positive for hypertension. REVIEW OF SYSTEMS: Not available. MEDICATIONS: Her medications in the MAR have been reviewed, but I am not sure if the patient has been able to take anything. Note that the patient was on Eliquis for her prior history of PE. ALLERGIES: She is allergic to: 1. ASPIRIN. 2. IBUPROFEN. PHYSICAL EXAMINATION: GENERAL: The patient at present has been sedated but still is agitated and restless but is not able to answer any questions. VITAL SIGNS: She is afebrile with a temperature of 97.6 degrees Fahrenheit. Pulse is 124 beats per minute, and the monitor shows atrial fibrillation. Subsequently the heart rate went up to 150 beats per minute. Blood pressure 121/72 with respirations of 24 per minute. O2 saturations are 100% on 4 liters nasal cannula. HEAD: Atraumatic. EYES: Pupils are regular, reactive to light. EARS, NOSE, AND THROAT: Negative. NECK: Supple. There is no JVD. Carotids are equal. There is no bruit. There is no goiter. Trachea is central. LUNGS: There are dry coarse crackles in both bases. No rales of CHF. HEART: S1, S2 is heard. There is a variable S1 in intensity. There is an S3 gallop. There is no S4 gallop. There is a systolic murmur in the left sternal border and the apex. There is no rub. ABDOMEN: Soft, nontender. There is no hepatosplenomegaly. Bowel sounds are heard. EXTREMITIES: There is no pedal edema. Peripheral pulses are diminished. Femorals are diminished. CENTRAL NERVOUS SYSTEM: The patient is conscious but very sedated and drowsy and agitated. There is no focal deficit. PSYCHIATRIC: The patient appears to be agitated. DIAGNOSTIC DATA: The patient's initial EKG shows borderline ST-elevation in the inferior wall and also lateral wall. Subsequent EKG done on the shows sinus rhythm, low voltage in the frontal leads. The patient now on the monitor shows atrial fibrillation with a rapid ventricular response. The patient's white count is 15,200 yesterday, hemoglobin 7.8, hematocrit is 25.6, platelet count 368,000. The patient's sodium is 131.8, potassium 4.7, chloride is 95, CO2 is 27, BUN is 25, creatinine is 0.79, GFR is greater than 60, glucose is 150. The patient's initial CPK-MB was elevated at 99.50, subsequently troponin-I was 6.260. Subsequently the troponin-I increased to 35 and the CPK-MB went up to 224, and subsequently this troponin-I went up to 89.7 and the 92.40, and the CPK-MB was 281 and 168. The patient's chest x-ray shows no evidence of heart failure. There are moderate interstitial markings, small chronic blunting of the bilateral costophrenic angles. IMPRESSION: 1. Possible ST-elevation segment WI. Note that the patient's EKG did show borderline ST-segment elevation. 2. Acute on chronic respiratory failure. 3. Atrial fibrillation with rapid ventricular response. 4. Severe dementia. 5. Anemia. 6. Rheumatoid arthritis. 7. A history of pulmonary embolism, by history. 8. DNR and comfort measures. RECOMMENDATIONS: Note that the patient is not able to take her medications. Note due to the patient's advanced dementia, advanced age, and the patient's severe comorbidities, the patient is not a candidate for cardiac catheterization since she cannot follow post-catheterization instructions and is very high risk for complications of cardiac catheterization such as WI, stroke and renal failure, and vascular bleeding and damage. Also, the patient is not a candidate for coronary artery bypass graft surgery, hence is not a candidate for percussion intervention, and hence it does not make any sense to subject the patient to a cardiac catheterization. Hence, I agree with the present treatment, with the present diagnoses and treatment plan that the patient be a DNR and only comfort measures be made. This has been discussed with the patient's daughter. The daughter, who is the pzpfw-oz-wpisuzch, states that her other family members are anxious, are asking a lot of questions, and it would be best if I could talk to them in person, which I have asked her to page me when they are all here. Note, although this patient has multiple comorbid conditions, this is a straight forward decision, and in view of the patient's age and other factors mentioned above, and hence is a low complexity medical decision making. DICTATING PHYSICIAN: HENRY RODRIGUES M.D. [id number] PHY#: [id number] ID: [id number] JOB#: [id number] ACCT: [id number] cc:HENRY RODRIGUES M.D. >
--- NOTE | 2016-10-10 16:12 | Death Summary ---
Summary Date : 10/09/16 Time of :: 19:00 Autopsy: No Resuscitation Status: Do Not Resuscitate - Final Diagnosis (1) Acute and chronic respiratory failure Is this a current diagnosis for this admission?: Yes (2) COPD exacerbation Is this a current diagnosis for this admission?: Yes (3) Pneumonia Is this a current diagnosis for this admission?: Yes (4) ST elevation [place] (STEMI) Is this a current diagnosis for this admission?: Yes (5) Acute encephalopathy Is this a current diagnosis for this admission?: Yes (6) Anemia of chronic disease Is this a current diagnosis for this admission?: Yes (7) Dementia Is this a current diagnosis for this admission?: Yes (8) GERD (gastroesophageal reflux disease) Is this a current diagnosis for this admission?: Yes (9) History of pulmonary embolism Is this a current diagnosis for this admission?: Yes (10) Hyperlipidemia Is this a current diagnosis for this admission?: Yes (11) Hypertension Is this a current diagnosis for this admission?: Yes (12) Rheumatoid arthritis Is this a current diagnosis for this admission?: Yes (13) DNR (do not resuscitate) Is this a current diagnosis for this admission?: Yes Hospital Course:: summary is dictated by review of medical records. I did not personally care for this patient. Patient was care for by Dr. Que Wesley. In review of records patient was admitted on 10/07/2016 for respiratory failure and sepsis associated with pneumonia and COPD exacerbation. Hospital course was complicated by ST elevation CA and acute encephalopathy. Discussions were held with patient's family throughout hospitalization by Dr. Wesley and decision was made for patient to become comfort measures only. Patient on 2016 at 1900 hrs.
== END 2016-10-09 20:46 ==
LOC: ER 03:04 → EH 06:02 → UNDOADMIN 06:30 → 3N 08:45
PROVIDERS: ADMIT Internal Medicine; ATTEND Internal Medicine
PROC: 5A09457 Assistance with Respiratory Ventilation, 24-96 Consecutive Hours, Continuous Positive Airway Pressure (ICD-10-PCS; principal; 2016-10-07)
DX: I21.29 ST elevation (STEMI) myocardial infarction involving other sites (principal); J96.20 Acute and chronic respiratory failure, unspecified whether with hypoxia or hypercapnia; G93.40 Encephalopathy, unspecified; A41.9 Sepsis, unspecified organism; J18.9 Pneumonia, unspecified organism; J44.0 Chronic obstructive pulmonary disease with (acute) lower respiratory infection; Z51.5 Encounter for palliative care; J44.1 Chronic obstructive pulmonary disease with (acute) exacerbation; Z66 Do not resuscitate; F03.90 Unspecified dementia, unspecified severity, without behavioral disturbance, psychotic disturbance, mood disturbance, and anxiety; M06.9 Rheumatoid arthritis, unspecified; H91.90 Unspecified hearing loss, unspecified ear; I10 Essential (primary) hypertension; E78.5 Hyperlipidemia, unspecified; F32.9 Major depressive disorder, single episode, unspecified; D64.9 Anemia, unspecified; Z86.711 Personal history of pulmonary embolism; Z87.01 Personal history of pneumonia (recurrent); Z87.440 Personal history of urinary (tract) infections; Z90.49 Acquired absence of other specified parts of digestive tract; Z90.710 Acquired absence of both cervix and uterus; Z88.6 Allergy status to analgesic agent; Z79.899 Other long term (current) drug therapy; Z79.02 Long term (current) use of antithrombotics/antiplatelets; Z96.653 Presence of artificial knee joint, bilateral
CPT/HCPCS: 36415; 71010; 80048; 80053; 81001; 82550; 82553; 83605; 83880; 84484; 85025; 87040; 93005; 93010; 94640; 94660; 96365; 99291; J1956; J2060; J2270; J3370; J3490; J7512; J7620